=== PATIENT | female | born 1935 | race Caucasian/White ===

== ENCOUNTER 2016-03-13 09:37 | Emergency (ER) | payer MEDICARE, BC ==
[2016-03-13] MEDS ORDERED: SODIUM CHLORIDE 0.9% 500 ML IV STA (10:34)
[2016-03-13] MEDS ORDERED: DIAZEPAM 5 MG/ML 2 ML SYRINGE IVP STA (10:34)
--- NOTE | 2016-03-13 10:40 | ED ---
Back Pain HPI - General Chief Complaint: Back Pain/Injury Stated Complaint: Back Pain Time Seen by Provider: 03/13/16 09:40 Source: patient, EMS, RN notes reviewed Limitations: no limitations - History of Present Illness Initial Comments: 80-year-old female presents emergency Department chief complaint left low back pain. Patient states that she has chronic left low back pain but states that this much worse last few days. Patient denies any nausea vomiting diarrhea constipation. Patient denies any dysuria. 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 Patient states that she's had no fever or chills. Patient does have some left for quadrant abdominal pain. Patient denies any chest pain or shortness breath. Patient states that twisting bending makes the pain much worse. She states that she cannot take any pain medication as it makes her sick. She states she takes Tylenol 650 every morning. - Related Data Home Medications Medication Instructions Recorded Confirmed Levothyroxine Sodium [Synthroid] 50 mcg PO MOTUWETHFR 08/08/13 03/13/16 Niacin [Niacin ER] 500 mg PO DAILY 08/08/13 03/13/16 Calcium Carbonate/Vitamin D3 1 tab PO W/SUPPER 01/13/14 03/13/16 [Calcium 500-Vit D3 400 Tablet] Cranberry Conc/C/Bacill Coag 1 tab PO W/LUNCH 01/13/14 03/13/16 [Cranberry Tablet] Isosorbide Mononitrate [Imdur] 30 mg PO DAILY 01/13/14 03/13/16 Insulin Glargine,Hum.rec.anlog 12 units SQ PC-LUNCH 08/03/15 03/13/16 [Lantus Solostar] amLODIPine [Norvasc] 5 mg PO BID 08/03/15 03/13/16 Ergocalciferol [Vitamin D2] 50,000 unit PO ARDON 03/13/16 03/13/16 Ezetimibe [Zetia] 10 mg PO W/LUNCH 03/13/16 03/13/16 L.acidoph,Paracasei, B.lactis 1 cap PO DAILY 03/13/16 03/13/16 [Probiotic] Levothyroxine Sodium [Synthroid] 50 mcg PO SUSA 03/13/16 03/13/16 Multivit-Min/FA/Lycopene/Lut 1 tab PO W/LUNCH 03/13/16 03/13/16 [Centrum Silver Tablet] Pravastatin Sodium [Pravachol] 80 mg PO W/SUPPER 03/13/16 03/13/16 Previous Rx's Medication Instructions Recorded Lisinopril [Zestril] 10 mg PO BID #0 02/27/15 Allergies Allergy/AdvReac Type Severity Reaction Status Date / Time allantoin [From Orajel] Allergy Swelling Verified 03/13/16 09:52 benzalkonium chloride Allergy Swelling Verified 03/13/16 09:52 [From Orajel] benzocaine [From Orajel] Allergy Swelling Verified 03/13/16 09:52 carbamide peroxide Allergy Swelling Verified 03/13/16 09:52 [From Orajel] dipyridamole Allergy Unknown Verified 03/13/16 09:52 [From Persantine] enalapril maleate Allergy Swelling Verified 03/13/16 09:52 [From Vasotec] enalaprilat dihydrate Allergy Swelling Verified 03/13/16 09:52 [From Vasotec] methotrexate Allergy Swelling Verified 03/13/16 09:52 Sulfa (Sulfonamide Allergy Swelling Verified 03/13/16 09:52 Antibiotics) zinc chloride [From Orajel] Allergy Swelling Verified 03/13/16 09:52 acetaminophen [From Ultracet] AdvReac Nausea & Verified 03/13/16 09:52 Vomiting codeine AdvReac Nausea & Verified 03/13/16 09:52 Vomiting diazepam [From Valium] AdvReac Confusion Verified 03/13/16 11:12 pentazocine lactate AdvReac Hallucinati Verified 03/13/16 09:52 [From Talwin] ons propoxyphene HCl AdvReac Hallucinati Verified 03/13/16 09:52 [From Darvon] ons tramadol HCl [From Ultracet] AdvReac Nausea & Verified 03/13/16 09:52 Vomiting Review of Systems ROS Statement: Those systems with pertinent positive or pertinent negative responses have been documented in the HPI. ROS Other: All systems not noted in ROS Statement are negative. Past Medical History Past Medical History: CVA/TIA, Diabetes Mellitus, GI Bleed, Hyperlipidemia, Hypertension, Rheumatoid Arthritis (RA), Sleep Apnea/CPAP/BIPAP, Thyroid Disorder Additional Past Medical History / Comment(s): arthritis, murmur, cataracts, obstructive sleep apnea on CPAP. History of Any Multi-Drug Resistant Organisms: C-DIFF Date of last positivie culture/infection: 02/2016/C-Diff MDRO Source:: stool Past Surgical History: Appendectomy, Cholecystectomy, Hysterectomy, Joint Replacement Additional Past Surgical History / Comment(s): mouth tumor benign, rt arm bone tumor- benign, rt breast biopsy - benign, kidney biopsy for function- no problems, liver biopsy, right partial mastectomy, Rt hip replaced, ulcer caterization to address GI bleed. Past Anesthesia/Blood Transfusion Reactions: No Reported Reaction Past Psychological History: No Psychological Hx Reported Additional Psychological History / Comment(s): .Lives independently with the help of her multiple family members including her daughters. Transporter as needed. She is a lifelong nonsmoker with no marijuana, street drug use or alcohol abuse. Does not work outside of the home. No international travel. No experience. She does use a cane for ambulation and has a CPAP. No animal exposures. Smoking Status: Never smoker Past Alcohol Use History: None Reported Past Drug Use History: None Reported - Past Family History Brother(s) Family Medical History: CVA/TIA, Hypertension Additional Family Medical History / Comment(s): She has one brother with history of stroke and hypertension. Sister(s) Additional Family Medical History / Comment(s): She has 2 sisters and both have passed 1 from Alzheimer's dementia and one from brain aneurysm. Daughter(s) Additional Family Medical History / Comment(s): She has 6 children, 4 girls and 2 boys with strong history of hypertension. Mother Family Medical History: Congestive Heart Failure (CHF) Father Family Medical History: Liver Disease Additional Family Medical History / Comment(s): Father from alcoholic cirrhosis and had history of hypertension. General Exam Limitations: no limitations General appearance: alert, in no apparent distress Head exam: Present: atraumatic, normocephalic, normal inspection Respiratory exam: Present: normal lung sounds bilaterally. Absent: respiratory distress, wheezes, rales, rhonchi, stridor Cardiovascular Exam: Present: regular rate, normal rhythm, normal heart sounds. Absent: systolic murmur, diastolic murmur, rubs, gallop, clicks GI/Abdominal exam: Present: soft, tenderness (Mild diffuse), normal bowel sounds. Absent: distended, guarding, rebound, rigid Back exam: Present: full ROM, tenderness (Left low back moderate), paraspinal tenderness (Left lumbar). Absent: CVA tenderness (R), CVA tenderness (L), vertebral tenderness Neurological exam: Present: alert, oriented X3, CN II-XII intact Course Vital Signs 03/13/16 09:47 Temperature 97.1 F L Pulse Rate 85 Respiratory 20 Rate Blood Pressure 152/68 O2 Sat by Pulse 97 Oximetry Medical Decision Making - Medical Decision Making 80-year-old female presents emergency department for back pain. Patient has chronic back pain. Patient's x-ray does show severe degenerative changes most likely given her back pain. Patient has had a kidney stone in the left side. We discussed this appears to be within the kidney and she has no hematuria. Patient to follow up outpatient for her kidney stone. Patient agrees plan. Patient will increase Tylenol to 3 times a day she'll he states it twice. Return parameters were discussed. - Lab Data Result diagrams: 03/13/16 11:05 03/13/16 11:05 Lab Results 03/13/16 03/13/16 03/13/16 Range/Units 11:05 11:05 11:05 WBC 9.1 (3.8-10.6) k/uL RBC 4.15 (3.80-5.40) m/uL Hgb 13.2 (11.4-16.0) gm/dL Hct 38.4 (34.0-46.0) % MCV 92.5 (80.0-100.0) fL MCH 31.9 (25.0-35.0) pg MCHC 34.5 (31.0-37.0) g/dL RDW 12.4 (11.5-15.5) % Plt Count 208 (150-450) k/uL Neutrophils % 80 % Lymphocytes % 11 % Monocytes % 7 % Eosinophils % 1 % Basophils % 0 % Neutrophils # 7.3 (1.3-7.7) k/uL Lymphocytes # 1.0 (1.0-4.8) k/uL Monocytes # 0.6 (0-1.0) k/uL Eosinophils # 0.1 (0-0.7) k/uL Basophils # 0.0 (0-0.2) k/uL Sodium 145 (137-145) mmol/L Potassium 4.4 (3.5-5.1) mmol/L Chloride 106 (98-107) mmol/L Carbon Dioxide 22 (22-30) mmol/L Anion Gap 17 mmol/L BUN 25 H (7-17) mg/dL Creatinine 0.77 (0.52-1.04) mg/dL Est GFR (MDRD) Af Amer >60 (>60 ml/min/1.73 sqM) Est GFR (MDRD) Non-Af >60 (>60 ml/min/1.73 sqM) Glucose 172 H (74-99) mg/dL Calcium 10.3 H (8.4-10.2) mg/dL Total Bilirubin 1.0 (0.2-1.3) mg/dL AST 54 H (14-36) U/L ALT 70 H (9-52) U/L Alkaline Phosphatase 69 (38-126) U/L Total Protein 7.6 (6.3-8.2) g/dL Albumin 4.9 (3.5-5.0) g/dL Lipase 118 (23-300) U/L Urine Color Light Yellow Urine Appearance Clear (Clear) Urine pH 5.5 (5.0-8.0) Ur Specific [place] 1.008 (1.001-1.035) Urine Protein Negative (Negative) Urine Glucose (UA) Negative (Negative) Urine Ketones Negative (Negative) Urine Blood Negative (Negative) Urine Nitrate Negative (Negative) Urine Bilirubin Negative (Negative) Urine Urobilinogen <2.0 (<2.0) mg/dL Ur Leukocyte Esterase Small H (Negative) Urine RBC 1 (0-5) /hpf Urine WBC 11 H (0-5) /hpf Ur Squamous Epith Cells 1 (0-4) /hpf Urine Bacteria Rare H (None) /hpf Disposition Clinical Impression: Chronic back pain, Kidney stone Disposition: HOME SELF-CARE Condition: Stable Instructions: Chronic Back Pain (ED) Additional Instructions: Please return to the Emergency Department if symptoms worsen or any other concerns. Referrals: Art Washburn MD [Primary Care Provider] - 1-2 days Edson Jaime MD [STAFF PHYSICIAN] - 1-2 days Time of Disposition: 13:18
[2016-03-13 11:31] LABS: Appearance,Urine Clear (Clear); Bacteria,Urine Rare /hpf; Basophils % (A) 0 %; Bilirubin,Urine Negative (Negative); CH 32.6; CHCM 35.4; Eosinophils # (A) 0.1 k/uL (0-0.7); Eosinophils % (A) 1 %; Glucose,Urine (UA) Negative (Negative); HCT 38.4 % (34.0-46.0); HGB 13.2 gm/dL (11.4-16.0); Ketones,Urine Negative (Negative); Leukocyte Esterase,Urine Small (Negative); Luc # (Auto) 0.17; Luc % (Auto) 2; Lymphocytes % (A) 11 %; MCH 31.9 pg (25.0-35.0); MCHC 34.5 g/dL (31.0-37.0); MCV 92.5 fL (80.0-100.0); Mean Platelet Volume 7.1; Monocytes # (A) 0.6 k/uL (0-1.0); Monocytes % (A) 7 %; Neutrophils # (A) 7.3 k/uL (1.3-7.7); Neutrophils % (A) 80 %; Nitrite,Urine Negative (Negative); PH, Urine 5.5 (5.0-8.0); Particle Count 3116; Protein,Urine Negative (Negative); RBC 4.15 m/uL (3.80-5.40); RBC,Urine 1 /hpf (0-5); RDW 12.4 % (11.5-15.5); Specific Gravity,Urine 1.008 (1.001-1.035); Squamous Epithelial Cell,Urine 1 /hpf (0-4); UA Billing (MACRO vs. MICRO) MICRO; Urobilinogen,Urine <2.0 mg/dL (<2.0); WBC 9.1 k/uL (3.8-10.6); WBC,Urine 11 /hpf (0-5)
[2016-03-13 11:42] LABS: ALT 70 U/L (9-52); AST 54 U/L (14-36); Alkaline Phosphatase 69 U/L (38-126); Anion Gap 17 mmol/L; Blood Urea Nitrogen 25 mg/dL (7-17); Calcium 10.3 mg/dL (8.4-10.2); Carbon Dioxide 22 mmol/L (22-30); Chloride 106 mmol/L (98-107); Glucose 172 mg/dL (74-99); Non-African American GFR(MDRD) >60 (>60 ml/min/1.73 sqM); Potassium 4.4 mmol/L (3.5-5.1); Sodium 145 mmol/L (137-145); Total Protein 7.6 g/dL (6.3-8.2)
--- NOTE | 2016-03-13 12:50 | XR ---
EXAMINATION TYPE: XR KUB DATE OF EXAM: 03/13/2016 12:35 PM COMPARISON: 08/03/2015 HISTORY: 80-year-old female chronic back pain flared up and got worse. FINDINGS: Supine imaging limited for assessment of free air. Overall nonobstructive bowel gas pattern with scat tered mild stool. There is a 9 mm calcific density projecting at the left mid abdomen. There is a deg enerated extra convex scoliosis of the lumbar spine. Additional moderate degenerative change at the l eft hip with prior right hip replacement partially visualized. IMPRESSION: 1. Nonobstructive bowel gas pattern. 2. 9 mm calcification projecting in the left midabdomen suspected left renal calculus. 3. Degenerated dextroconvex scoliosis and moderate left hip osteoarthrosis.
--- NOTE | 2016-03-13 12:57 | XR ---
EXAMINATION TYPE: XR lumbar spine 2 or 3V DATE OF EXAM: 03/13/2016 12:35 PM COMPARISON: 05/17/2011 HISTORY: 80-year-old female with chronic back pain flareup recently TECHNIQUE: 3 views FINDINGS: There is a degenerated dextroconvex scoliosis of the lumbar spine with curvature increased from 2011. Marked hypertrophic facet arthropathy throughout. There is also degenerative thinning of the interspi nous ligaments with abutment of the spinous processes. The graft there are grade 1 retrolistheses at L1-L2, L2-L3, and L3-L4 with moderate multilevel disc/endplate degenerative change. There is superior endplate compression deformity with mild anterior wedging of T12 vertebral body which is age indeter minate but new from 2011. IMPRESSION: 1. Degenerated dextroconvex scoliosis has progressed from 2011. 2. Advanced hypertrophic facet arthropathy throughout with mild to moderate multilevel discogenic end plate degenerative change, and grade 1 retrolisthesis from L1 through L4 levels. 3. Mild anterior wedging of T12 suggests age indeterminate compression injury though new from 05/17/19 12. Correlate for any focal pain at this level.
[2016-03-13 13:28] VITALS: BP 166/78; PULSE 89; RESP 18; TEMP 97.9
== END 2016-03-13 13:32 | disposition home or self-care (01) ==
LOC: EC 09:37
DX: N20.0 Calculus of kidney (principal); M54.5 Low back pain; G89.29 Other chronic pain; M16.12 Unilateral primary osteoarthritis, left hip; M41.9 Scoliosis, unspecified; M51.36 Other intervertebral disc degeneration, lumbar region; E11.9 Type 2 diabetes mellitus without complications; I10 Essential (primary) hypertension; E07.9 Disorder of thyroid, unspecified; E78.5 Hyperlipidemia, unspecified; G47.33 Obstructive sleep apnea (adult) (pediatric); Z88.8 Allergy status to other drugs, medicaments and biological substances; Z88.2 Allergy status to sulfonamides; Z88.5 Allergy status to narcotic agent; Z79.899 Other long term (current) drug therapy; Z79.4 Long term (current) use of insulin; Z86.73 Personal history of transient ischemic attack (TIA), and cerebral infarction without residual deficits
CPT/HCPCS: 36415; 72100; 74000; 80053; 81001; 83690; 85025; 99284

== ENCOUNTER → 2016-05-19 | Outpatient (CLI) | payer MEDICARE, BC ==
[2016-05-19 10:42] LABS: Basophils % (A) 0 %; CH 32.2; Eosinophils # (A) 0.2 k/uL (0-0.7); Eosinophils % (A) 2 %; HCT 38.1 % (34.0-46.0); HDW 2.69; HGB 12.6 gm/dL (11.4-16.0); Luc # (Auto) 0.19; Luc % (Auto) 3; Lymphocytes # (A) 1.1 k/uL (1.0-4.8); Lymphocytes % (A) 14 %; MCH 31.6 pg (25.0-35.0); MCHC 33.2 g/dL (31.0-37.0); MCV 95.1 fL (80.0-100.0); Mean Platelet Volume 7.3; Monocytes # (A) 0.6 k/uL (0-1.0); Monocytes % (A) 7 %; Neutrophils # (A) 5.8 k/uL (1.3-7.7); Neutrophils % (A) 74 %; RDW 12.3 % (11.5-15.5); WBC 7.9 k/uL (3.8-10.6)
[2016-05-19 10:46] LABS: Partial Thromboplastin Time 22.9 sec (22.0-30.0); Prothrombin Time 10.5 sec (9.0-12.0)
[2016-05-19 10:58] LABS: Anion Gap 12 mmol/L; Blood Urea Nitrogen 26 mg/dL (7-17); Carbon Dioxide 25 mmol/L (22-30); Chloride 108 mmol/L (98-107); Non-African American GFR(MDRD) >60 (>60 ml/min/1.73 sqM); Potassium 4.4 mmol/L (3.5-5.1); Sodium 145 mmol/L (137-145)
[2016-05-19 11:03] LABS: Appearance,Urine Clear (Clear); Bacteria,Urine Moderate /hpf; Bilirubin,Urine Negative (Negative); Glucose,Urine (UA) Negative (Negative); Ketones,Urine Negative (Negative); Leukocyte Esterase,Urine Large (Negative); Mucus,Urine Rare /hpf; Nitrite,Urine Negative (Negative); PH, Urine 5.5 (5.0-8.0); Particle Count 4481; Protein,Urine Trace (Negative); RBC,Urine 2 /hpf (0-5); Specific Gravity,Urine 1.009 (1.001-1.035); UA Billing (MACRO vs. MICRO) MICRO; Urobilinogen,Urine <2.0 mg/dL (<2.0); WBC,Urine 104 /hpf (0-5)
== END | disposition home or self-care (01) ==
LOC: LABWHC1 09:45
PROVIDERS: ATTEND Urology
DX: N20.1 Calculus of ureter (principal); I10 Essential (primary) hypertension; I25.2 Old myocardial infarction; I48.91 Unspecified atrial fibrillation
CPT/HCPCS: 36415; 80051; 81001; 82565; 84520; 85025; 85610; 85730

== ENCOUNTER 2016-05-26 06:32 | Day surgery (SDC) | payer MEDICARE, BC ==
[2016-05-21 16:53] VITALS: BMI 22.3
[~2016-05-26 06:32] MED LIST: LACTATED RINGERS 1,000 ML IV SCH; ONDANSETRON 4 MG/2 ML VIAL IVP ONE; Pre Op ABX Message 1 EACH MISC MISCELLANE ONE; fentaNYL (PF) 50 MCG/ML 2 ML AMP IV PRN
[2016-05-26] MEDS ORDERED: LIDOCAINE 1% 20 ML VIAL (10MG/ML) FOR IV START INTRADERMA ONE (07:01)
[2016-05-26 07:14] LABS: Glucose,Whole Blood 197 mg/dL (75-99)
[2016-05-26 07:19] VITALS: RESP 16; TEMP 98.2
[2016-05-26] MEDS ORDERED: PROPOFOL 10 MG/ML 20 ML VIAL IV ONE (07:25)
[2016-05-26] MEDS ORDERED: MIDAZOLAM 2 MG/2 ML VIAL ONE (07:25)
[2016-05-26] MEDS ORDERED: fentaNYL (PF) 50 MCG/ML 2 ML AMP ONE (07:25)
[2016-05-26] MEDS ORDERED: LIDOCAINE 1% INJ 10MG/ML (20 ML MDV) ONE (07:25)
--- NOTE | 2016-05-26 08:03 | P.OP ---
Date of Procedure: 05/26/16 Preoperative Diagnosis: Left renal calculus Postoperative Diagnosis: Same Anesthesia: YIFAN VALDEZ Surgeon: Aaron Kinsey Pathology: none sent Condition: stable Disposition: PACU Indications for Procedure: The patient is an 80-year-old female with a 9 mm left renal pelvic stone who comes for shockwave lithotripsy Description of Procedure: Patient is brought to the lithotripsy suite and placed on the lithotripsy table in the supine position. The stone was seen in 2 views of fluoroscopy. 2500 shocks to the stone fragment energy level IV administered. The stone fractures nicely. Then of the procedure the patient's awake and returned recovery room good condition. She'll be followed in the office later this week with a KUB.
[2016-05-26 08:44] VITALS: PULSE 82
[2016-05-26 09:30] VITALS: BP 132/61
== END 2016-05-26 09:51 | disposition home or self-care (01) ==
LOC: ORWHC2ENDO 06:32
PROVIDERS: ATTEND Urology
DX: N20.0 Calculus of kidney (principal); I10 Essential (primary) hypertension; I25.10 Atherosclerotic heart disease of native coronary artery without angina pectoris; E11.9 Type 2 diabetes mellitus without complications; Z79.4 Long term (current) use of insulin; I25.2 Old myocardial infarction; E78.5 Hyperlipidemia, unspecified; E03.9 Hypothyroidism, unspecified; R01.1 Cardiac murmur, unspecified; G47.33 Obstructive sleep apnea (adult) (pediatric); Z99.89 Dependence on other enabling machines and devices; M35.00 Sjogren syndrome, unspecified; Z86.718 Personal history of other venous thrombosis and embolism; Z79.899 Other long term (current) drug therapy; Z88.1 Allergy status to other antibiotic agents; Z88.5 Allergy status to narcotic agent; Z88.0 Allergy status to penicillin; Z88.2 Allergy status to sulfonamides; Z91.09 Other allergy status, other than to drugs and biological substances
CPT/HCPCS: 50590; J2250; J2405; J2001; J3010; J2704

== ENCOUNTER → 2016-05-30 | Outpatient (CLI) | payer MEDICARE, BC ==
--- NOTE | 2016-05-30 10:55 | XR ---
EXAMINATION TYPE: XR KUB DATE OF EXAM: 05/30/2016 10:36 AM CLINICAL HISTORY: Follow-up for lithotripsy May 26, 2016. TECHNIQUE: Single supine KUB image of the abdomen is obtained. COMPARISON: Abdominal x-ray March 13, 2016.. FINDINGS: There are now multiple small punctate calculi lower pole level likely within calyx in the l eft kidney. Previously visualized 9 mm round calculus is not seen. No new renal calculi clearly ident ified. There is overall nonobstructive bowel gas pattern. There is multilevel spurring in the spine most pro minent L1-L2 level. There is moderate to advanced joint space loss and mild to moderate spurring in t he left hip redemonstrated. Metallic hardware from right hip arthroplasty is stable. IMPRESSION: Successful lithotripsy or fragmentation of dominant left renal calculus with incomplete clearance or some residual punctate calculi filling lower pole calyx.
== END | disposition home or self-care (01) ==
LOC: RADXRMAIN 10:23
PROVIDERS: ATTEND Urology
DX: N20.0 Calculus of kidney (principal)
CPT/HCPCS: 74000

== ENCOUNTER → 2016-06-30 | Outpatient (CLI) | payer MEDICARE, BC ==
--- NOTE | 2016-06-30 13:26 | XR ---
EXAMINATION TYPE: XR KUB DATE OF EXAM: 06/30/2016 12:16 PM CLINICAL DATA: 80-year-old female left-sided kidney stones, [facility] COMPARISON: 05/30/2016 FINDINGS: Supine imaging limited for assessment of free intraperitoneal air. Her nonobstructive bowel gas patte rn. Cluster of calculi projecting at the lower pole left kidney with aggregate dimension of 1.8 x 0.6 cm. Additional 5 mm calcification projecting at the left midpole. Either vascular calcifications or timi tional vague urinary tract calculus projecting at the tip of the left L3 transverse process. Degenerated dextroconvex scoliosis. IMPRESSION: 1. Left-sided nephrolithiasis with an aggregate calculus measuring up to 1.8 x 0.6 cm. 2. Either subtle urinary tract calculus or vascular calcifications projecting at the tip of the left L3 transverse process. Correlate with patient's symptoms.
== END | disposition home or self-care (01) ==
LOC: RADXRMAIN 11:53
PROVIDERS: ATTEND Urology
DX: N20.0 Calculus of kidney (principal)
CPT/HCPCS: 74000

== ENCOUNTER 2018-05-28 10:09 | Emergency (ER) | payer MEDICARE, BC ==
[2018-05-28 10:22] VITALS: BP 159/73; PULSE 93; RESP 18; TEMP 96.7
[2018-05-28] MEDS ORDERED: SODIUM CHLORIDE 0.9% 500 ML 500 ML IV STA (10:55)
--- NOTE | 2018-05-28 11:09 | ED ---
General Adult HPI - General Chief complaint: Abdominal Pain Stated complaint: Weakness Time Seen by Provider: 05/28/18 10:53 Source: patient, EMS Mode of arrival: EMS Limitations: physical limitation - History of Present Illness Initial comments: Dictation was produced using [employer] dictation software. please excuse any grammatical, word or spelling errors. Chief Complaint: 82-year-old female past history of CVA, diabetes, GI bleed, hypertension presents with persistent diarrhea or 7 days. History of Present Illness: A 82-year-old female she is brought in today for persistent diarrhea. Patient has history of CVA and ambulates with a cane. Patient states that 7 days ago she's been having significant constant episodes of diarrhea for approximate 7 days. Patient states that today she began feeling significantly weak and not as active as usual. Patient denies any nausea or vomiting. She states she has diffuse abdominal tenderness. Denies any recent hospitalization or recent antibiotics. She has started omeprazole and Zantac recently. The ROS documented in this emergency department record has been reviewed and confirmed by me. Those systems with pertinent positive or negative responses have been documented in the HPI. All other systems are other negative and/or noncontributory. PHYSICAL EXAM: General Impression: Alert and oriented x3, not in acute distress HEENT: Normocephalic atraumatic, extra-ocular movements intact, pupils equal and reactive to light bilaterally, dry mucous membranes Cardiovascular: Heart regular rate and rhythm, S1&S2 audible, no murmurs, rubs or gallops Chest: Lungs clear to auscultation bilaterally, no rhonchi, no wheeze, no rales Abdomen: Bowel sounds present, abdomen soft, diffuse abdominal tenderness to palpation, non-distended, no organomegaly Musculoskeletal: Pulses present and equal in all extremities, no peripheral edema Motor: no focal deficits noted Neurological: CN II-XII grossly intact, no focal motor or sensory deficits noted Skin: Intact with no visualized rashes Psych: Normal affect and mood ED course: 82-year-old female presents chief complaint diarrhea. Vital signs upon arrival are within acceptable limits. Patient is well-appearing at this time. Physical examination is positive for dehydration and diffuse abdominal tenderness. No concerns for Clostridium difficile infection. Laboratory evaluation obtained. CBC unremarkable. Metabolic panel shows no Acidosis. Glucose 203. Mild transaminitis. Lipase 423. Patient does have an elevated BUN to creatinine ratio indicating slight dehydration. Patient denies any urinary symptoms however urinalysis shows positive nitrites. No WBCs. Patient has known history of chronic urinary tract infections. This time we will withhold antibiotics until urine culture results are done. Patient did not have any episodes of diarrhea upon arrival. Repeat physical examination shows well-appearing female. Abdominal x-ray shows thickened gastric wall. Patient has been given intravenous fluids. Patient does have mild weak rectal tone likely secondary to weak and pelvic muscles. No concern for cauda equina or conus medullaris at this time given that patient not complaining of any back pain symptoms have been ongoing for 1 week. Patient to be discharge with prescription for antidiarrheal medications. Patient counseled on appropriate administration of these medications. She is given GI referral for incidental upper GI findings. EKG interpretation: Ventricular rate 86, sinus rhythm with first-degree AV block,. Interval to 22, care is 124, QTC 471. No ND prolongation, no QTC prolongation, no ST or T-wave changes noted. EKG compared to 02/20/19 showing no changes. Overall, this EKG is unremarkable - Related Data Home Medications Medication Instructions Recorded Confirmed Niacin [Niacin ER] 500 mg PO W/SUPPER 08/08/13 05/28/18 Calcium Carbonate/Vitamin D3 1 tab PO W/SUPPER 01/13/14 05/28/18 [Calcium 500-Vit D3 400 Tablet] Cranberry Conc/C/Bacill Coag 1 tab PO W/LUNCH 01/13/14 05/28/18 [Cranberry Tablet] Isosorbide Mononitrate [Imdur] 30 mg PO DAILY 01/13/14 05/28/18 Insulin Glargine,Hum.rec.anlog 16 units SQ PC-LUNCH 08/03/15 05/28/18 [Lantus Solostar] amLODIPine [Norvasc] 5 mg PO BID 08/03/15 05/28/18 Ezetimibe [Zetia] 10 mg PO W/LUNCH 03/13/16 05/28/18 L.acidoph,Paracasei, B.lactis 1 cap PO DAILY 03/13/16 05/28/18 [Probiotic] Levothyroxine Sodium [Synthroid] 75 mcg PO DAILY 03/13/16 05/28/18 Multivit-Min/FA/Lycopen/Lutein 1 tab PO W/LUNCH 03/13/16 05/28/18 [Centrum Silver Tablet] Pravastatin Sodium [Pravachol] 80 mg PO W/SUPPER 03/13/16 05/28/18 Acetaminophen [Tylenol Arthritis] 650 mg PO DIRECTED PRN 05/21/16 05/28/18 Omeprazole 20 mg PO DAILY 05/28/18 05/28/18 Ranitidine HCl 150 mg PO HS 05/28/18 05/28/18 Previous Rx's Medication Instructions Recorded Lisinopril [Zestril] 10 mg PO BID #0 02/27/15 HYDROcodone/APAP 5-325MG [[place] 1 tab PO Q4HR PRN #20 tab 05/26/16 5-325] Loperamide [Imodium] 2 mg PO QID PRN #12 capsule 05/28/18 Allergies Allergy/AdvReac Type Severity Reaction Status Date / Time allantoin [From Orajel] Allergy Swelling Verified 05/28/18 11:16 benzalkonium chloride Allergy Swelling Verified 05/28/18 11:16 [From Orajel] benzocaine [From Orajel] Allergy Swelling Verified 05/28/18 11:16 carbamide peroxide Allergy Swelling Verified 05/28/18 11:16 [From Orajel] codeine Allergy Nausea & Verified 05/28/18 11:16 Vomiting dipyridamole Allergy Unknown Verified 05/28/18 11:16 [From Persantine] enalapril maleate Allergy Swelling Verified 05/28/18 11:16 [From Vasotec] enalaprilat dihydrate Allergy Swelling Verified 05/28/18 11:16 [From Vasotec] furosemide [From Lasix] Allergy Unknown Verified 05/28/18 11:16 glimepiride [From Amaryl] Allergy Unknown Verified 05/28/18 11:16 hydralazine Allergy Unknown Verified 05/28/18 11:16 methotrexate Allergy Swelling Verified 05/28/18 11:16 naproxen [From Naprosyn] Allergy Unknown Verified 05/28/18 11:16 Penicillins Allergy Unknown Verified 05/28/18 11:16 Sulfa (Sulfonamide Allergy Swelling Verified 05/28/18 11:16 Antibiotics) zinc chloride [From Orajel] Allergy Swelling Verified 05/28/18 11:16 acetaminophen [From Ultracet] AdvReac Nausea & Verified 05/28/18 11:16 Vomiting diazepam [From Valium] AdvReac Confusion Verified 05/28/18 11:16 pentazocine lactate AdvReac Hallucinati Verified 05/28/18 11:16 [From Talwin] ons propoxyphene HCl AdvReac Hallucinati Verified 05/28/18 11:16 [From Darvon] ons tramadol HCl [From Ultracet] AdvReac Nausea & Verified 05/28/18 11:16 Vomiting CIPROCINONIDE Allergy Unknown Uncoded 05/26/16 06:55 Review of Systems ROS Statement: Those systems with pertinent positive or pertinent negative responses have been documented in the HPI. ROS Other: All systems not noted in ROS Statement are negative. Past Medical History Past Medical History: CVA/TIA, Diabetes Mellitus, GI Bleed, Hyperlipidemia, Hypertension, Rheumatoid Arthritis (RA), Sleep Apnea/CPAP/BIPAP, Thyroid Disorder Additional Past Medical History / Comment(s): arthritis, murmur, cataracts, obstructive sleep apnea on CPAP. History of Any Multi-Drug Resistant Organisms: None Reported Date of last positivie culture/infection: 02/2016/C-Diff MDRO Source:: stool Past Surgical History: Appendectomy, Cholecystectomy, Hysterectomy, Joint Replacement Additional Past Surgical History / Comment(s): mouth tumor benign, rt arm bone tumor- benign, rt breast biopsy - benign, kidney biopsy for function- no problems, liver biopsy, right partial mastectomy, Rt hip replaced, ulcer caterization to address GI bleed. Past Anesthesia/Blood Transfusion Reactions: No Reported Reaction Past Psychological History: No Psychological Hx Reported Smoking Status: Never smoker Past Alcohol Use History: None Reported Past Drug Use History: None Reported - Past Family History Brother(s) Family Medical History: CVA/TIA, Hypertension Additional Family Medical History / Comment(s): She has one brother with history of stroke and hypertension. Sister(s) Additional Family Medical History / Comment(s): She has 2 sisters and both have passed 1 from Alzheimer's dementia and one from brain aneurysm. Daughter(s) Additional Family Medical History / Comment(s): She has 6 children, 4 girls and 2 boys with strong history of hypertension. Mother Family Medical History: Congestive Heart Failure (CHF) Father Family Medical History: Deep Vein Thrombosis (DVT), Liver Disease Additional Family Medical History / Comment(s): Father from alcoholic cirrhosis and had history of hypertension. General Exam Limitations: physical limitation Course Vital Signs 05/28/18 10:20 Temperature 96.7 F L Pulse Rate 93 Respiratory 18 Rate Blood Pressure 159/73 O2 Sat by Pulse 97 Oximetry Medical Decision Making - Lab Data Result diagrams: 05/28/18 11:16 05/28/18 11:16 Lab Results 05/28/18 05/28/18 05/28/18 Range/Units 11:16 11:16 12:25 WBC 10.0 (3.8-10.6) k/uL RBC 4.08 (3.80-5.40) m/uL Hgb 12.4 (11.4-16.0) gm/dL Hct 38.0 (34.0-46.0) % MCV 93.1 (80.0-100.0) fL MCH 30.4 (25.0-35.0) pg MCHC 32.7 (31.0-37.0) g/dL RDW 12.6 (11.5-15.5) % Plt Count 169 (150-450) k/uL Neutrophils % 81 % Lymphocytes % 9 % Monocytes % 7 % Eosinophils % 2 % Basophils % 0 % Neutrophils # 8.1 H (1.3-7.7) k/uL Lymphocytes # 0.9 L (1.0-4.8) k/uL Monocytes # 0.7 (0-1.0) k/uL Eosinophils # 0.2 (0-0.7) k/uL Basophils # 0.0 (0-0.2) k/uL Sodium 141 (137-145) mmol/L Potassium 3.9 (3.5-5.1) mmol/L Chloride 110 H (98-107) mmol/L Carbon Dioxide 22 (22-30) mmol/L Anion Gap 9 mmol/L BUN 29 H (7-17) mg/dL Creatinine 0.82 (0.52-1.04) mg/dL Est GFR (CKD-EPI)AfAm 77 (>60 ml/min/1.73 sqM) Est GFR (CKD-EPI)NonAf 66 (>60 ml/min/1.73 sqM) Glucose 203 H (74-99) mg/dL Calcium 9.6 (8.4-10.2) mg/dL Total Bilirubin 1.1 (0.2-1.3) mg/dL AST 58 H (14-36) U/L ALT 69 H (9-52) U/L Alkaline Phosphatase 66 (38-126) U/L Total Protein 6.8 (6.3-8.2) g/dL Albumin 4.3 (3.5-5.0) g/dL Lipase 423 H (23-300) U/L Urine Color Light Yellow Urine Appearance Clear (Clear) Urine pH 5.5 (5.0-8.0) Ur Specific [place] 1.008 (1.001-1.035) Urine Protein Trace H (Negative) Urine Glucose (UA) Negative (Negative) Urine Ketones Negative (Negative) Urine Blood Negative (Negative) Urine Nitrite Positive H (Negative) Urine Bilirubin Negative (Negative) Urine Urobilinogen <2.0 (<2.0) mg/dL Ur Leukocyte Esterase Moderate H (Negative) Urine RBC 15 H (0-5) /hpf Ur Squamous Epith Cells <1 (0-4) /hpf Urine Bacteria Occasional H (None) /hpf Urine Mucus Rare H (None) /hpf Disposition Clinical Impression: Diarrhea Disposition: HOME SELF-CARE Condition: Good Instructions (If sedation given, give patient instructions): Acute Diarrhea (ED) Prescriptions: Loperamide [Imodium] 2 mg PO QID PRN #12 capsule PRN Reason: Diarrhea Is patient prescribed a controlled substance at d/c from ED?: No Referrals: Harshal Calderón MD [Primary Care Provider] - 1-2 days Ela Richardson MD [STAFF PHYSICIAN] - 1-2 days Time of Disposition: 12:52
[2018-05-28 11:45] LABS: Basophils % (A) 0 %; Eosinophils # (A) 0.2 k/uL (0-0.7); Eosinophils % (A) 2 %; HGB 12.4 gm/dL (11.4-16.0); Lymphocytes # (A) 0.9 k/uL (1.0-4.8); Lymphocytes % (A) 9 %; MCH 30.4 pg (25.0-35.0); MCHC 32.7 g/dL (31.0-37.0); MCV 93.1 fL (80.0-100.0); Mean Platelet Volume 8.4; Monocytes # (A) 0.7 k/uL (0-1.0); Monocytes % (A) 7 %; Neutrophils # (A) 8.1 k/uL (1.3-7.7); Neutrophils % (A) 81 %; Platelet Count 169 k/uL (150-450); RBC 4.08 m/uL (3.80-5.40); RDW 12.6 % (11.5-15.5)
[2018-05-28 11:56] LABS: Albumin 4.3 g/dL (3.5-5.0); Calcium 9.6 mg/dL (8.4-10.2); Potassium 3.9 mmol/L (3.5-5.1); Total Bilirubin 1.1 mg/dL (0.2-1.3); Total Protein 6.8 g/dL (6.3-8.2)
--- NOTE | 2018-05-28 12:25 | XR ---
EXAMINATION TYPE: XR abdomen acute w cxr DATE OF EXAM: 05/28/2018 CLINICAL HISTORY: History of CVA/TIA and hypertension presents with chest and abdominal pain, weaknes s and shortness of breath with diarrhea. TECHNIQUE: Single frontal view of chest is obtained. Supine and upright views of the abdomen are acq uired. COMPARISON: Abdominal x-ray June 30, 2016. Chest x-ray February 22, 2015. FINDINGS: There is chronic parenchymal change without suspicious focal airspace opacity, pleural effu rupa, or pneumothorax. Cardiac silhouette size appears upper limits of normal with atherosclerotic a sunita. Osseous structures are somewhat demineralized. Old fracture deformity right proximal humerus i s present. Gas is seen in nondistended stomach with suggestion of superiorly thickened gastric wall. Gas is note d in nondistended small bowel loops. Gas and fecal material is seen in nondistended colon. Metallic hardware right hip arthroplasty is redemonstrated. Left-sided renal calculi again seen, I see roughly 5 calculi measuring up to 4 mm in size. Underlying S-shaped scoliosis with multilevel spurring in th e spine is redemonstrated most prominent right L1-L2 level. No pneumoperitoneum is seen. Impression: 1. Chronic parenchymal changes without acute pulmonary process. 2. Overall nonspecific but likely nonobstructive bowel gas pattern. Suspect severe diffuse gastric wa ll thickening, differential includes gastritis and/or gastric carcinoma/linitis plastica. Consider en doscopic evaluation based on clinical correlation.
[2018-05-28 12:38] LABS: Appearance,Urine Clear (Clear); Bacteria,Urine Occasional /hpf; Bilirubin,Urine Negative (Negative); Blood,Urine Negative (Negative); Color,Urine Light Yellow; Glucose,Urine (UA) Negative (Negative); Ketones,Urine Negative (Negative); Leukocyte Esterase,Urine Moderate (Negative); Mucus,Urine Rare /hpf; Nitrite,Urine Positive (Negative); PH, Urine 5.5 (5.0-8.0); Protein,Urine Trace (Negative); RBC,Urine 15 /hpf (0-5); Specific Gravity,Urine 1.008 (1.001-1.035); Squamous Epithelial Cell,Urine <1 /hpf (0-4); Urobilinogen,Urine <2.0 mg/dL (<2.0)
== END 2018-05-28 13:03 | disposition home or self-care (01) ==
LOC: EC 10:09
DX: R19.7 Diarrhea, unspecified (principal); E86.0 Dehydration; I44.0 Atrioventricular block, first degree; R74.0 Nonspecific elevation of levels of transaminase and lactic acid dehydrogenase [LDH]; R82.998 Other abnormal findings in urine; K62.89 Other specified diseases of anus and rectum; R53.1 Weakness; R10.817 Generalized abdominal tenderness; E11.9 Type 2 diabetes mellitus without complications; E78.5 Hyperlipidemia, unspecified; I10 Essential (primary) hypertension; E07.9 Disorder of thyroid, unspecified; G47.33 Obstructive sleep apnea (adult) (pediatric); M19.90 Unspecified osteoarthritis, unspecified site; Z88.0 Allergy status to penicillin; Z88.2 Allergy status to sulfonamides; Z88.5 Allergy status to narcotic agent; Z88.6 Allergy status to analgesic agent; Z88.8 Allergy status to other drugs, medicaments and biological substances; Z79.4 Long term (current) use of insulin; Z79.890 Hormone replacement therapy; Z79.899 Other long term (current) drug therapy; Z87.19 Personal history of other diseases of the digestive system; Z90.49 Acquired absence of other specified parts of digestive tract; Z96.641 Presence of right artificial hip joint; Z86.73 Personal history of transient ischemic attack (TIA), and cerebral infarction without residual deficits; Z87.440 Personal history of urinary (tract) infections; Z99.89 Dependence on other enabling machines and devices; Z83.79 Family history of other diseases of the digestive system
CPT/HCPCS: 36415; 74022; 80053; 81001; 83690; 85025; 87077; 87086; 87186; 93005; 99285

== ENCOUNTER → 2018-11-09 | Outpatient (CLI) | payer MEDICARE, BC ==
[2018-11-09 16:35] LABS: Albumin 4.9 g/dL (3.80-4.90); Albumin/Globulin Ratio 2.72 (1.60-3.17); Anion Gap 12.3 mmol/L (4.00-12.00); BUN/Creat Ratio 32.5 Ratio (12.00-20.00); Calcium 10.6 mg/dL (8.7-10.3); Carbon Dioxide 23.7 mmol/L (21.6-31.8); Chol/HDL Ratio 3.33; Globulin 1.8 g/dL (1.6-3.3); Potassium 4.2 mmol/L (3.5-5.5); Total Protein 6.7 g/dL (6.2-8.2)
[2018-11-09 17:39] LABS: Hemoglobin A1C 7.3 % (4.0-6.0)
== END | disposition home or self-care (01) ==
LOC: LABWHC1 10:08
PROVIDERS: ATTEND Internal Medicine Endocrinology, Diabetes & Metabolism
DX: E11.65 Type 2 diabetes mellitus with hyperglycemia (principal)
CPT/HCPCS: 36415; 80053; 80061; 82043; 82570; 83036; 84443

== ENCOUNTER 2020-04-19 10:30 | Inpatient (IN) | payer MEDICARE, BC ==
[2020-04-19] MEDS ORDERED: ONDANSETRON 4 MG/2 ML VIAL IVP STA (11:22)
[2020-04-19] MEDS ORDERED: SODIUM CHLORIDE 0.9% 500 ML 500 ML IV STA (11:22)
[2020-04-19 11:41] LABS: Basophils % (A) 0 %; Eosinophils # (A) 0.1 k/uL (0-0.7); Eosinophils % (A) 2 %; HCT 36.1 % (34.0-46.0); HGB 12.1 gm/dL (11.4-16.0); Lymphocytes # (A) 0.9 k/uL (1.0-4.8); Lymphocytes % (A) 14 %; MCH 30.8 pg (25.0-35.0); MCHC 33.5 g/dL (31.0-37.0); MCV 91.9 fL (80.0-100.0); Monocytes # (A) 0.4 k/uL (0-1.0); Monocytes % (A) 6 %; Neutrophils # (A) 4.7 k/uL (1.3-7.7); Neutrophils % (A) 77 %; Platelet Count 161 k/uL (150-450); RBC 3.93 m/uL (3.80-5.40); RDW 12.4 % (11.5-15.5); WBC 6.2 k/uL (3.8-10.6)
[2020-04-19 11:53] LABS: Albumin 3.8 g/dL (3.5-5.0); Calcium 9.7 mg/dL (8.4-10.2); Magnesium 1.6 mg/dL (1.6-2.3); Potassium 4.2 mmol/L (3.5-5.1); Total Bilirubin 0.8 mg/dL (0.2-1.3); Total Protein 6.5 g/dL (6.3-8.2)
[2020-04-19 11:57] LABS: INR 0.9 (<1.2)
[2020-04-19 11:59] LABS: Partial Thromboplastin Time 20.4 sec (22.0-30.0)
--- NOTE | 2020-04-19 12:03 | XR ---
EXAMINATION TYPE: XR chest 2V DATE OF EXAM: 04/19/2020 COMPARISON: 02/22/15 HISTORY: Shortness of breath TECHNIQUE: Frontal and lateral views of the chest are obtained. FINDINGS: Scattered senescent parenchymal changes noted. Hyperinflation compatible with COPD. No evidence for infiltrate. No evidence for atelectasis. Heart size is stable. Mediastinal structures are stable and grossly unremarkable. No evidence for hilar prominence. Degenerative changes dorsal spine. IMPRESSION: 1. No evidence for acute pulmonary disease.
[2020-04-19 12:16] LABS: Appearance,Urine Clear (Clear); Bilirubin,Urine Negative (Negative); Blood,Urine Negative (Negative); Color,Urine Yellow; Glucose,Urine (UA) Negative (Negative); Ketones,Urine Negative (Negative); Leukocyte Esterase,Urine Moderate (Negative); Nitrite,Urine Negative (Negative); Protein,Urine 1+ (Negative); RBC,Urine <1 /hpf (0-5); Specific Gravity,Urine 1.009 (1.001-1.035); Squamous Epithelial Cell,Urine 1 /hpf (0-4); Urobilinogen,Urine <2.0 mg/dL (<2.0); WBC,Urine 4 /hpf (0-5)
--- NOTE | 2020-04-19 12:36 | ED ---
Weakness HPI - General Chief complaint: Weakness Stated complaint: Weakness Time Seen by Provider: 04/19/20 10:30 Source: patient, EMS Mode of arrival: EMS Limitations: no limitations - History of Present Illness Initial comments: The patient is an 84-year-old female past medical history of CVA, diabetes, rheumatoid arthritis who presents to the emergency department with reported weakness. Patient states that she began having symptoms and was taken into the emergency department at [facility] on Thursday. She is evaluated in the ER. Found that she had a urinary tract infection. They gave the patient anabiotic since she was discharged home. Patient reports that she originally felt better however over the past day she has progressive it got worse. She does have chronic right-sided weakness but is able to care for herself. Lives alone and is normally able to ambulate to the bathroom. States that this morning she was unable to get up and ambulate therefore she called EMS. She admits to nausea with dry heaving. Decreased appetite. No abdominal pain. Denies worsening unilateral weakness but admits to rise weakness. No fevers or chills. Does report that she had a contact was positive for covid one week ago. No other alleviating, precipitating factors - Related Data Home Medications Medication Instructions Recorded Confirmed Niacin [Niacin ER] 500 mg PO W/SUPPER 08/08/13 04/19/20 Calcium Carbonate/Vitamin D3 1 tab PO W/SUPPER 01/13/14 04/19/20 [Calcium 500-Vit D3 400 Tablet] Cranberry Conc/C/Bacill Coag 1 tab PO W/LUNCH 01/13/14 04/19/20 [Cranberry Tablet] Insulin Glargine,Hum.rec.anlog 24 units SQ DAILY@1300 08/03/15 04/19/20 [Lantus Solostar] amLODIPine [Norvasc] 5 mg PO DAILY 08/03/15 04/19/20 Ezetimibe [Zetia] 10 mg PO W/LUNCH 03/13/16 04/19/20 L.acidoph,Paracasei, B.lactis 1 cap PO DAILY 03/13/16 04/19/20 [Probiotic] Multivit-Min/FA/Lycopen/Lutein 1 tab PO W/LUNCH 03/13/16 04/19/20 [Centrum Silver Tablet] Pravastatin Sodium [Pravachol] 80 mg PO W/SUPPER 03/13/16 04/19/20 Cholecalciferol [Vitamin D3 (25 50 mcg PO HS 04/19/20 04/19/20 Mcg = 1000 Iu)] Isosorbide Mononitrate ER [Imdur] 60 mg PO DAILY 04/19/20 04/19/20 Levothyroxine Sodium [Synthroid] 75 mcg PO DAILY 04/19/20 04/19/20 Previous Rx's Medication Instructions Recorded lisinopriL [Zestril] 10 mg PO BID #0 02/27/15 Allergies Allergy/AdvReac Type Severity Reaction Status Date / Time allantoin [From Orajel] Allergy Swelling Verified 04/19/20 11:43 benzalkonium chloride Allergy Swelling Verified 04/19/20 11:43 [From Orajel] benzocaine [From Orajel] Allergy Swelling Verified 04/19/20 11:43 carbamide peroxide Allergy Swelling Verified 04/19/20 11:43 [From Orajel] codeine Allergy Nausea & Verified 04/19/20 11:43 Vomiting dipyridamole Allergy Unknown Verified 04/19/20 11:43 [From Persantine] enalapril maleate Allergy Swelling Verified 04/19/20 11:43 [From Vasotec] enalaprilat dihydrate Allergy Swelling Verified 04/19/20 11:43 [From Vasotec] furosemide [From Lasix] Allergy Unknown Verified 04/19/20 11:43 glimepiride [From Amaryl] Allergy Unknown Verified 04/19/20 11:43 hydralazine Allergy Unknown Verified 04/19/20 11:43 methotrexate Allergy Swelling Verified 04/19/20 11:43 naproxen [From Naprosyn] Allergy Unknown Verified 04/19/20 11:43 Penicillins Allergy Unknown Verified 04/19/20 11:43 Sulfa (Sulfonamide Allergy Swelling Verified 04/19/20 11:43 Antibiotics) zinc chloride [From Orajel] Allergy Swelling Verified 04/19/20 11:43 acetaminophen [From Ultracet] AdvReac Nausea & Verified 04/19/20 11:43 Vomiting diazepam [From Valium] AdvReac Confusion Verified 04/19/20 11:43 pentazocine lactate AdvReac Hallucinati Verified 04/19/20 11:43 [From Talwin] ons propoxyphene HCl AdvReac Hallucinati Verified 04/19/20 11:43 [From Darvon] ons tramadol HCl [From Ultracet] AdvReac Nausea & Verified 04/19/20 11:43 Vomiting CIPROCINONIDE Allergy Unknown Uncoded 05/26/16 06:55 Review of Systems ROS Statement: Those systems with pertinent positive or pertinent negative responses have been documented in the HPI. ROS Other: All systems not noted in ROS Statement are negative. Past Medical History Past Medical History: CVA/TIA, Diabetes Mellitus, GI Bleed, Hyperlipidemia, Hypertension, Rheumatoid Arthritis (RA), Sleep Apnea/CPAP/BIPAP, Thyroid Disorder Additional Past Medical History / Comment(s): arthritis, murmur, cataracts, obstructive sleep apnea on CPAP. History of Any Multi-Drug Resistant Organisms: None Reported Date of last positivie culture/infection: 02/2016/C-Diff MDRO Source:: stool Past Surgical History: Appendectomy, Cholecystectomy, Hysterectomy, Joint Replacement Additional Past Surgical History / Comment(s): mouth tumor benign, rt arm bone tumor- benign, rt breast biopsy - benign, kidney biopsy for function- no problems, liver biopsy, right partial mastectomy, Rt hip replaced, ulcer caterization to address GI bleed. Past Anesthesia/Blood Transfusion Reactions: No Reported Reaction Past Psychological History: No Psychological Hx Reported Smoking Status: Never smoker Past Alcohol Use History: None Reported Past Drug Use History: None Reported - Past Family History Brother(s) Family Medical History: CVA/TIA, Hypertension Additional Family Medical History / Comment(s): She has one brother with history of stroke and hypertension. Sister(s) Additional Family Medical History / Comment(s): She has 2 sisters and both have passed 1 from Alzheimer's dementia and one from brain aneurysm. Daughter(s) Additional Family Medical History / Comment(s): She has 6 children, 4 girls and 2 boys with strong history of hypertension. Mother Family Medical History: Congestive Heart Failure (CHF) Father Family Medical History: Deep Vein Thrombosis (DVT), Liver Disease Additional Family Medical History / Comment(s): Father from alcoholic cirrhosis and had history of hypertension. General Exam Limitations: no limitations Course Vital Signs 04/19/20 10:31 Temperature 98.2 F Pulse Rate 86 Respiratory 18 Rate Blood Pressure 156/74 O2 Sat by Pulse 96 Oximetry EKG Findings - EKG Comments: EKG Findings:: EKG demonstrates sinus rhythm with first-degree AV block. Rate of 82. [place] interval 228. QRS 132. QTC of 474. no acute ST segment elevations or depressions. Left bundle-branch block present Medical Decision Making - Medical Decision Making On arrival patient is placed in room 18. A thorough history and physical exam was performed. Laboratory studies are conducted. IV was established and the patient was given a 500 bolus of normal saline. Laboratory studies demonstrate that the patient is positive for covid. Chest x-ray demonstrates no evidence for acute cardiac disease. As the patient normally cares for herself and cannot ambulate I did recommend hospital admission for which patient did agree to. Spoke with Dr. Mathews who agreed to admit the patient. I will consult Dr. Vasquez. Patient is currently awaiting a bed on the floor - Lab Data Result diagrams: 04/19/20 11:05 04/19/20 11:05 Lab Results 04/19/20 04/19/20 04/19/20 Range/Units 11:05 11:05 11:05 WBC 6.2 (3.8-10.6) k/uL RBC 3.93 (3.80-5.40) m/uL Hgb 12.1 (11.4-16.0) gm/dL Hct 36.1 (34.0-46.0) % MCV 91.9 (80.0-100.0) fL MCH 30.8 (25.0-35.0) pg MCHC 33.5 (31.0-37.0) g/dL RDW 12.4 (11.5-15.5) % Plt Count 161 (150-450) k/uL MPV 8.0 Neutrophils % 77 % Lymphocytes % 14 % Monocytes % 6 % Eosinophils % 2 % Basophils % 0 % Neutrophils # 4.7 (1.3-7.7) k/uL Lymphocytes # 0.9 L (1.0-4.8) k/uL Monocytes # 0.4 (0-1.0) k/uL Eosinophils # 0.1 (0-0.7) k/uL Basophils # 0.0 (0-0.2) k/uL PT 10.0 (9.0-12.0) sec INR 0.9 (<1.2) APTT 20.4 L (22.0-30.0) sec Sodium (137-145) mmol/L Potassium (3.5-5.1) mmol/L Chloride (98-107) mmol/L Carbon Dioxide (22-30) mmol/L Anion Gap mmol/L BUN (7-17) mg/dL Creatinine (0.52-1.04) mg/dL Est GFR (CKD-EPI)AfAm (>60 ml/min/1.73 sqM) Est GFR (CKD-EPI)NonAf (>60 ml/min/1.73 sqM) Glucose (74-99) mg/dL Plasma Lactic Acid Zaki (0.7-2.0) mmol/L Calcium (8.4-10.2) mg/dL Magnesium (1.6-2.3) mg/dL Total Bilirubin (0.2-1.3) mg/dL AST (14-36) U/L ALT (4-34) U/L Alkaline Phosphatase (38-126) U/L Creatine Kinase (30-135) U/L Troponin I (0.000-0.034) ng/mL Total Protein (6.3-8.2) g/dL Albumin (3.5-5.0) g/dL Lipase (23-300) U/L TSH (0.465-4.680) mIU/L Urine Color Urine Appearance (Clear) Urine pH (5.0-8.0) Ur Specific [place] (1.001-1.035) Urine Protein (Negative) Urine Glucose (UA) (Negative) Urine Ketones (Negative) Urine Blood (Negative) Urine Nitrite (Negative) Urine Bilirubin (Negative) Urine Urobilinogen (<2.0) mg/dL Ur Leukocyte Esterase (Negative) Urine RBC (0-5) /hpf Urine WBC (0-5) /hpf Ur Squamous Epith Cells (0-4) /hpf Coronavirus (PCR) Detected A (Not Detectd) 04/19/20 04/19/20 04/19/20 Range/Units 11:05 11:05 11:05 WBC (3.8-10.6) k/uL RBC (3.80-5.40) m/uL Hgb (11.4-16.0) gm/dL Hct (34.0-46.0) % MCV (80.0-100.0) fL MCH (25.0-35.0) pg MCHC (31.0-37.0) g/dL RDW (11.5-15.5) % Plt Count (150-450) k/uL MPV Neutrophils % % Lymphocytes % % Monocytes % % Eosinophils % % Basophils % % Neutrophils # (1.3-7.7) k/uL Lymphocytes # (1.0-4.8) k/uL Monocytes # (0-1.0) k/uL Eosinophils # (0-0.7) k/uL Basophils # (0-0.2) k/uL PT (9.0-12.0) sec INR (<1.2) APTT (22.0-30.0) sec Sodium 137 (137-145) mmol/L Potassium 4.2 (3.5-5.1) mmol/L Chloride 105 (98-107) mmol/L Carbon Dioxide 24 (22-30) mmol/L Anion Gap 8 mmol/L BUN 21 H (7-17) mg/dL Creatinine 0.77 (0.52-1.04) mg/dL Est GFR (CKD-EPI)AfAm 81 (>60 ml/min/1.73 sqM) Est GFR (CKD-EPI)NonAf 71 (>60 ml/min/1.73 sqM) Glucose 194 H (74-99) mg/dL Plasma Lactic Acid Zaki 1.2 (0.7-2.0) mmol/L Calcium 9.7 (8.4-10.2) mg/dL Magnesium 1.6 (1.6-2.3) mg/dL Total Bilirubin 0.8 (0.2-1.3) mg/dL AST 42 H (14-36) U/L ALT 40 H (4-34) U/L Alkaline Phosphatase 54 (38-126) U/L Creatine Kinase 26 L (30-135) U/L Troponin I <0.012 (0.000-0.034) ng/mL Total Protein 6.5 (6.3-8.2) g/dL Albumin 3.8 (3.5-5.0) g/dL Lipase 111 (23-300) U/L TSH 3.070 (0.465-4.680) mIU/L Urine Color Urine Appearance (Clear) Urine pH (5.0-8.0) Ur Specific [place] (1.001-1.035) Urine Protein (Negative) Urine Glucose (UA) (Negative) Urine Ketones (Negative) Urine Blood (Negative) Urine Nitrite (Negative) Urine Bilirubin (Negative) Urine Urobilinogen (<2.0) mg/dL Ur Leukocyte Esterase (Negative) Urine RBC (0-5) /hpf Urine WBC (0-5) /hpf Ur Squamous Epith Cells (0-4) /hpf Coronavirus (PCR) (Not Detectd) 04/19/20 Range/Units 11:50 WBC (3.8-10.6) k/uL RBC (3.80-5.40) m/uL Hgb (11.4-16.0) gm/dL Hct (34.0-46.0) % MCV (80.0-100.0) fL MCH (25.0-35.0) pg MCHC (31.0-37.0) g/dL RDW (11.5-15.5) % Plt Count (150-450) k/uL MPV Neutrophils % % Lymphocytes % % Monocytes % % Eosinophils % % Basophils % % Neutrophils # (1.3-7.7) k/uL Lymphocytes # (1.0-4.8) k/uL Monocytes # (0-1.0) k/uL Eosinophils # (0-0.7) k/uL Basophils # (0-0.2) k/uL PT (9.0-12.0) sec INR (<1.2) APTT (22.0-30.0) sec Sodium (137-145) mmol/L Potassium (3.5-5.1) mmol/L Chloride (98-107) mmol/L Carbon Dioxide (22-30) mmol/L Anion Gap mmol/L BUN (7-17) mg/dL Creatinine (0.52-1.04) mg/dL Est GFR (CKD-EPI)AfAm (>60 ml/min/1.73 sqM) Est GFR (CKD-EPI)NonAf (>60 ml/min/1.73 sqM) Glucose (74-99) mg/dL Plasma Lactic Acid Zaki (0.7-2.0) mmol/L Calcium (8.4-10.2) mg/dL Magnesium (1.6-2.3) mg/dL Total Bilirubin (0.2-1.3) mg/dL AST (14-36) U/L ALT (4-34) U/L Alkaline Phosphatase (38-126) U/L Creatine Kinase (30-135) U/L Troponin I (0.000-0.034) ng/mL Total Protein (6.3-8.2) g/dL Albumin (3.5-5.0) g/dL Lipase (23-300) U/L TSH (0.465-4.680) mIU/L Urine Color Yellow Urine Appearance Clear (Clear) Urine pH 6.0 (5.0-8.0) Ur Specific [place] 1.009 (1.001-1.035) Urine Protein 1+ H (Negative) Urine Glucose (UA) Negative (Negative) Urine Ketones Negative (Negative) Urine Blood Negative (Negative) Urine Nitrite Negative (Negative) Urine Bilirubin Negative (Negative) Urine Urobilinogen <2.0 (<2.0) mg/dL Ur Leukocyte Esterase Moderate H (Negative) Urine RBC <1 (0-5) /hpf Urine WBC 4 (0-5) /hpf Ur Squamous Epith Cells 1 (0-4) /hpf Coronavirus (PCR) (Not Detectd) Disposition Clinical Impression: Weakness, Diarrhea, COVID-19 Disposition: ADMITTED IP TO THIS [facility] Condition: Stable Is patient prescribed a controlled substance at d/c from ED?: No Decision to Admit Reason: Admit from EC Decision Date: 04/19/20 Decision Time: 13:05
[2020-04-19] MEDS ORDERED: ACETAMINOPHEN TAB 325 MG TAB PO PRN (13:05)
[2020-04-19] MEDS ORDERED: NALOXONE 0.4 MG/ML 1 ML VIAL IV PRN (13:05)
[2020-04-19] MEDS ORDERED: ONDANSETRON 4 MG/2 ML VIAL IVP PRN (13:05)
[2020-04-19] MEDS: SODIUM CHLORIDE 0.9% 1,000 ML IV SCH (14:38)
[2020-04-19 15:45] LABS: C Reactive Protein <5.0 mg/L (<10.0); LDH 480 U/L (313-618)
[2020-04-19 16:57] LABS: Glucose,Whole Blood 140 mg/dL (75-99)
[2020-04-19] MEDS: INSULIN ASPART (NovoLOG) 100 UNIT/ML VIAL SQ SCH ×2 (17:43→20:53)
[2020-04-19] MEDS: NIACIN TR 500 MG CAPLET PO SCH (17:50)
[2020-04-19] MEDS: PRAVASTATIN SODIUM 80 MG TAB PO SCH (17:50)
[2020-04-19 20:42] LABS: Glucose,Whole Blood 162 mg/dL (75-99)
[2020-04-19] MEDS: lisinopriL 10 MG TAB PO SCH (20:57)
--- NOTE | 2020-04-20 00:48 | CONS ---
CONSULTATION DATE OF SERVICE: 04/19/2020 REASON FOR STAY: Covid. HISTORY OF PRESENT ILLNESS: The patient is an 84 -year-old female, past medical history significant for rheumatoid arthritis, diabetes, CVA. The patient recently has been diagnosed with UTI, at [facility] and has been treated with Microbid. Patient presenting to the ER with chief complaints of cough, not feeling well. The patient mentioned she woke up this morning. She was unable to get up and ambulate. Therefore, she called EMS. The patient did have some nausea and dry skin. No vomiting. Decreased appetite. The patient denies any abdominal pain. No diarrhea. No chest pain. No shortness of breath. Minimal cough. When asked specifically for urinary symptoms, she says she does have a UTI. With these symptoms, the patient has been evaluated by the ER physician. On arrival to the ER, the patient has been afebrile. The patient is currently saturating 96% on room air. The patient did have a normal white count with mild lymphopenia. D-dimer is mildly elevated 1.04. Kidney function was normal. CRP is 5. Urine shows moderate leukocyte esterase . Covid test came back positive. The patient did have a chest x-ray, no evidence for acute pulmonary process. Patient has been admitted to the hospital. Infectious Disease was consulted for further management. She did receive a dose of Rocephin in the ER. REVIEW OF SYSTEMS: Positive points have been mentioned in HPI. Rest of systems negative. PAST MEDICAL HISTORY: CVA, TIA, diabetes mellitus, GI bleed, hyperlipidemia, hypertension, hypothyroidism, sleep apnea, rheumatoid arthritis. PAST SURGICAL HISTORY: Appendectomy, cholecystectomy, hysterectomy, right hip replacement. SOCIAL HISTORY: No history of smoking, drinking or drug use. FAMILY HISTORY: Mother history of CVA, hypertension, history of congestive heart failure. ALLERGIES: TO MULTIPLE MEDICATION LISTED ON THE CHART. NO ANTIBIOTIC ALLERGIES. MEDICATIONS: The patient is currently on Tylenol, Norvasc, Zetia, NovoLog, Levemir, Imdur, Lactobacillus, Synthroid, Zestril, Narcan, Zofran, Pravachol, and IV fluid. PHYSICAL EXAMINATION: Her blood pressure is 145/82 with a pulse of 82, temperature 98.2. She is 96% on room air. General description is an elderly female lying in bed in no distress. No tachypnea or accessory muscles of respiration use. HEENT: Examination shows no pallor or scleral icterus. Oral mucous membranes dry. NECK: Trachea central. No thyromegaly. LUNGS: Unlabored breathing. Clear to auscultation anteriorly. No wheeze or crackles. HEART S1, S2. Regular rate and rhythm. ABDOMEN: Soft, no tenderness. No guarding. No rigidity. EXTREMITIES: No edema of the feet. SKIN examination: No rash or mass palpable. NEUROLOGICAL: Patient is awake, alert, oriented times three. Mood and affect normal. LABORATORY DATA: Hemoglobin 12.1, white count 6.2, BUN of 21 and creatinine 0.77. Liver enzymes mildly elevated. CRP is normal. chest x-ray reported negative. DIAGNOSTIC IMPRESSION AND PLAN: Patient admitted to the hospital with generalized weakness, unable to get up and around with some dry heaves. This patient recently has been diagnosed with UTI at the other facility and treated with Macrobid. Urine shows leukocyte esterase but no WBC, possible partially treated urinary tract infection. The patient also had positive Covid test, however, did not have significant respiratory symptoms or respiratory compromise. Chest x-ray has been negative though she is risk of complication from Covid with concern for multiple comorbidity. PLAN: 1. Patient is ideal candidate for monochromal antibody the patient may be transitioned to observation and receive infusion at the hospital. We will discus with admitting physician. 2. Continue with Rocephin 1 g daily for partially treated UTI. 3. We will follow on clinical condition and further adjust medication if needed. Thank you for this consultation. Will follow this patient along with you. MMODL / IJN: [id number] /
[2020-04-20] MEDS: SODIUM CHLORIDE 0.9% 1,000 ML IV SCH ×2 (03:11→17:50)
[2020-04-20] MEDS: LEVOTHYROXINE 75 MCG TAB PO SCH (05:55)
[2020-04-20 06:55] LABS: Glucose,Whole Blood 201 mg/dL (75-99)
[2020-04-20] MEDS: LACTOBACILLUS ACIDOPH & BULGAR 1 EACH PACKET PO SCH (08:08)
[2020-04-20] MEDS: amLODIPine 5 MG TAB PO SCH (08:08)
[2020-04-20] MEDS: INSULIN ASPART (NovoLOG) 100 UNIT/ML VIAL SQ SCH ×4 (08:08→21:12)
[2020-04-20] MEDS: lisinopriL 10 MG TAB PO SCH ×2 (08:08→21:12)
[2020-04-20] MEDS: ISOSORBIDE MONONITRATE ER 60 MG TAB.ER.24H PO SCH (08:08)
[2020-04-20] MEDS ORDERED: MECLIZINE 12.5 MG TAB PO STA (10:29)
[2020-04-20] MEDS ORDERED: MECLIZINE 12.5 MG TAB PO PRN (10:29)
[2020-04-20 11:10] LABS: Glucose,Whole Blood 188 mg/dL (75-99)
--- NOTE | 2020-04-20 11:21 | P.HPIM ---
History of Present Illness H&P Date: 04/20/20 HISTORY AND PHYSICAL AND DISCHARGE SUMMARY: HISTORY OF PRESENT ILLNESS This is an 84-year-old female Chin of Dr. Calderón with past medical history of hospitalization at [facility] because of gastrointestinal bleeding. She underwent EGD and underwent cauterization of her duodenal bulb ulcer, history of previous CVA with right-sided weakness, history of hypothyroidism, degenerative joint disease, rheumatoid arthritis. History of C. difficile colitis in 2015. With urinary tract infection and started on antibiotic. Patient was discharged home at that time. Patient now presents to [facility] emergency center due to weakness. She does have chronic right-sided weakness due to CVA. Due to worsening weakness, patient is not able to ambulate in her home and take care of her ADLs. EMS was called and patient was brought into the hospital. Apparently she's had decreased appetite with nausea and vomiting. No fever or chills. Patient apparently had exposure to a person with Covid 19 1 week ago. [facility]. She has been afebrile since presentation, heart rate 98, blood pressure 145/71, pulse ox 94% on room air. CBC is normal except for lymphopenia at 0.9. D-dimer 1.04. Electrolytes normal, BUN 21 creatinine 0.77. Blood sugar running between 140 and 201. AST 42, ALT 40. LDH 480. CK 26. Troponin negative. C- reactive protein less than 5. Covid 19 positive. Urinalysis negative for infection. Chest x-ray reveals no evidence of acute pulmonary disease. Patient has been seen by Dr. Vasquez with recommendations for outpatient treatment with Bamlanivimab. Trochanter discussed with patient and her daughter option of discharging to [facility] for rehab and also to receive this medication. They are in agreement. Social work is working on discharge planning. Anticipate discharge today. Patient did have some lightheadedness and nausea when she got up for which orthostatics will be checked and meclizine added. REVIEW OF SYSTEMS Constitutional: No fever, no chills, no night sweats. No weight change. Reports weakness, reports fatigue, reports lethargy. No daytime sleepiness. EENT: No headache. No blurred vision or double vision, no loss of vision. No loss of Hearing, no ringing in the ears, no dizziness. No nasal drainage or congestion. No epistaxis. No sore throat. Lungs: No shortness of breath, cough, no sputum production. No wheezing. Cardiovascular: No chest pain, no lower extremity edema. No palpitations. No paroxysmal nocturnal dyspnea. No orthopnea. Reports lightheadedness or dizziness. No syncopal episodes. Abdominal: No abdominal pain. Reported nausea, vomiting. No diarrhea. No constipation. No bloody or tarry stools.. No loss of appetite. Genitourinary: No dysuria, increased frequency, urgency. No urinary retention. Musculoskeletal: No myalgias. No muscle weakness, no gait dysfunction, no frequent falls. No back pain. No neck pain. Integumentary: No wounds, no lesions. No rash or pruritus. No unusual bruising. No change in hair or nails. Neurologic: No aphasia. No facial droop. No change in mentation. No head injury. No headache. No paralysis. No paresthesia. Psychiatric: No depression. No anxiety. No mood swings. Endocrine: No abnormal blood sugars. No weight change. No excessive sweating or thirst. No cold intolerance. SOCIAL HISTORY Patient is a lifelong nonsmoker, no marijuana, street drug use or alcohol use. Patient is and lives independently with help from her family members. She does not work outside the home. No international travel. No service. She does use a cane and she has a CPAP. FAMILY HISTORY Father from alcoholic cirrhosis and had history of hypertension. Mother from congestive heart failure. Patient has one brother with history of stroke and hypertension. Patient's 2 sisters and one this past from Alzheimer's disease and one from brain aneurysm. Patient has 6 children. 4 daughters and 2 sons with strong history of hypertension. PHYSICAL EXAMINATION Gen: This is an 84-year-old female. Patient is resting in bed and appears to be comfortable and in no acute distress. HEENT: Head is atraumatic, normocephalic. Pupils equal, round. Sclerae is anicteric. NECK: Supple. No JVD. No lymphadenopathy. No thyromegaly. LUNGS: Clear to auscultation. No wheezes or rhonchi. No intercostal retractions. HEART: Regular rate and rhythm. No murmur. ABDOMEN: Soft. Bowel sounds are present. No masses. No tenderness. EXTREMITIES: No pedal edema. No calf tenderness. NEUROLOGICAL: Patient is awake, alert and oriented x3. Cranial nerves 2 through 12 are grossly intact. ASSESSMENT AND PLAN 1. COVID19 infection. Patient will be discharged to [facility]. Consult with infectious disease appreciated. Plan for treatment with Bamlanivimab 2. History of GI bleed, stable. 3. History of CVA with right-sided weakness, stable. Continue statin for secondary prevention. 4. Hypothyroidism. Continue levothyroxine 75 g daily. 5. Hyperlipidemia. Continue statin, Zetia. 6. Diabetes mellitus type 2 insulin requiring. Continue Levemir 24 units daily at 1300. 7. Hypertension. Continue lisinopril 10 mg twice daily, amlodipine 5 mg daily. 8. History of angina. Continue Imdur 60 mg daily, pravastatin. 9. Dizziness. Continue meclizine 12.5 mg 3 times a day as needed. Patient will be admitted to the hospital for a minimum of 1 night stay with plan to discharge to outpatient setting for appropriate treatment. DISCHARGE PLAN [facility]. Discharge Medication List Niacin [Niacin ER] 500 mg PO W/SUPPER 08/08/13 [History] Calcium Carbonate/Vitamin D3 [Calcium 500-Vit D3 400 Tablet] 1 tab PO W/SUPPER 01/13/14 [History] Cranberry Conc/C/Bacill Coag [Cranberry Tablet] 1 tab PO W/LUNCH 01/13/14 [History] lisinopriL [Zestril] 10 mg PO BID #0 02/27/15 [Rx] Insulin Glargine,Hum.rec.anlog [Lantus Solostar] 24 units SQ DAILY@1300 08/03/15 [History] amLODIPine [Norvasc] 5 mg PO DAILY 08/03/15 [History] Ezetimibe [Zetia] 10 mg PO W/LUNCH 03/13/16 [History] L.acidoph,Paracasei, B.lactis [Probiotic] 1 cap PO DAILY 03/13/16 [History] Multivit-Min/FA/Lycopen/Lutein [Centrum Silver Tablet] 1 tab PO W/LUNCH 03/13/16 [History] Pravastatin Sodium [Pravachol] 80 mg PO W/SUPPER 03/13/16 [History] Cholecalciferol [Vitamin D3 (25 Mcg = 1000 Iu)] 50 mcg PO HS 04/19/20 [History] Isosorbide Mononitrate ER [Imdur] 60 mg PO DAILY 04/19/20 [History] Levothyroxine Sodium [Synthroid] 75 mcg PO DAILY 04/19/20 [History] Meclizine [Antivert] 12.5 mg PO TID PRN tab 04/20/20 [Rx] Impression and plan of care have been directed as dictated by the signing physician. Kelsea Benitez nurse practitioner acting as scribe for signing physician. Past Medical History Past Medical History: CVA/TIA, Diabetes Mellitus, GI Bleed, Hyperlipidemia, Hypertension, Rheumatoid Arthritis (RA), Sleep Apnea/CPAP/BIPAP, Thyroid Disorder Additional Past Medical History / Comment(s): arthritis, murmur, cataracts, obstructive sleep apnea on CPAP. History of Any Multi-Drug Resistant Organisms: None Reported Date of last positivie culture/infection: 02/2016/C-Diff MDRO Source:: stool Past Surgical History: Appendectomy, Cholecystectomy, Hysterectomy, Joint Replacement Additional Past Surgical History / Comment(s): mouth tumor benign, rt arm bone tumor- benign, rt breast biopsy - benign, kidney biopsy for function- no problems, liver biopsy, right partial mastectomy, Rt hip replaced, ulcer caterization to address GI bleed. Past Anesthesia/Blood Transfusion Reactions: No Reported Reaction Past Psychological History: No Psychological Hx Reported Additional Psychological History / Comment(s): .Lives independently with the help of her multiple family members including her daughters. Transporter as needed. She is a lifelong nonsmoker with no marijuana, street drug use or alc ohol abuse. Does not work outside of the home. No international travel. No experience. She does use a cane for ambulation and has a CPAP. No animal exposures. Smoking Status: Never smoker Past Alcohol Use History: None Reported Past Drug Use History: None Reported - Past Family History Brother(s) Family Medical History: CVA/TIA, Hypertension Additional Family Medical History / Comment(s): She has one brother with history of stroke and hypertension. Sister(s) Additional Family Medical History / Comment(s): She has 2 sisters and both have passed 1 from Alzheimer's dementia and one from brain aneurysm. Daughter(s) Additional Family Medical History / Comment(s): She has 6 children, 4 girls and 2 boys with strong history of hypertension. Mother Family Medical History: Congestive Heart Failure (CHF) Father Family Medical History: Deep Vein Thrombosis (DVT), Liver Disease Additional Family Medical History / Comment(s): Father from alcoholic cirrhosis and had history of hypertension. Medications and Allergies Home Medications Medication Instructions Recorded Confirmed Type Niacin [Niacin ER] 500 mg PO W/SUPPER 08/08/13 04/19/20 History Calcium Carbonate/Vitamin D3 1 tab PO W/SUPPER 01/13/14 04/19/20 History [Calcium 500-Vit D3 400 Tablet] Cranberry Conc/C/Bacill Coag 1 tab PO W/LUNCH 01/13/14 04/19/20 History [Cranberry Tablet] lisinopriL [Zestril] 10 mg PO BID #0 02/27/15 04/19/20 Rx Insulin Glargine,Hum.rec.anlog 24 units SQ DAILY@1300 08/03/15 04/19/20 History [Lantus Solostar] amLODIPine [Norvasc] 5 mg PO DAILY 08/03/15 04/19/20 History Ezetimibe [Zetia] 10 mg PO W/LUNCH 03/13/16 04/19/20 History L.acidoph,Paracasei, B.lactis 1 cap PO DAILY 03/13/16 04/19/20 History [Probiotic] Multivit-Min/FA/Lycopen/Lutein 1 tab PO W/LUNCH 03/13/16 04/19/20 History [Centrum Silver Tablet] Pravastatin Sodium [Pravachol] 80 mg PO W/SUPPER 03/13/16 04/19/20 History Cholecalciferol [Vitamin D3 (25 50 mcg PO HS 04/19/20 04/19/20 History Mcg = 1000 Iu)] Isosorbide Mononitrate ER [Imdur] 60 mg PO DAILY 04/19/20 04/19/20 History Levothyroxine Sodium [Synthroid] 75 mcg PO DAILY 04/19/20 04/19/20 History Allergies Allergy/AdvReac Type Severity Reaction Status Date / Time allantoin [From Orajel] Allergy Swelling Verified 04/19/20 11:43 benzalkonium chloride Allergy Swelling Verified 04/19/20 11:43 [From Orajel] benzocaine [From Orajel] Allergy Swelling Verified 04/19/20 11:43 carbamide peroxide Allergy Swelling Verified 04/19/20 11:43 [From Orajel] codeine Allergy Nausea & Verified 04/19/20 11:43 Vomiting dipyridamole Allergy Unknown Verified 04/19/20 11:43 [From Persantine] enalapril maleate Allergy Swelling Verified 04/19/20 11:43 [From Vasotec] enalaprilat dihydrate Allergy Swelling Verified 04/19/20 11:43 [From Vasotec] furosemide [From Lasix] Allergy Unknown Verified 04/19/20 11:43 glimepiride [From Amaryl] Allergy Unknown Verified 04/19/20 11:43 hydralazine Allergy Unknown Verified 04/19/20 11:43 methotrexate Allergy Swelling Verified 04/19/20 11:43 naproxen [From Naprosyn] Allergy Unknown Verified 04/19/20 11:43 Penicillins Allergy Unknown Verified 04/19/20 11:43 Sulfa (Sulfonamide Allergy Swelling Verified 04/19/20 11:43 Antibiotics) zinc chloride [From Orajel] Allergy Swelling Verified 04/19/20 11:43 acetaminophen [From Ultracet] AdvReac Nausea & Verified 04/19/20 11:43 Vomiting diazepam [From Valium] AdvReac Confusion Verified 04/19/20 11:43 pentazocine lactate AdvReac Hallucinati Verified 04/19/20 11:43 [From Talwin] ons propoxyphene HCl AdvReac Hallucinati Verified 04/19/20 11:43 [From Darvon] ons tramadol HCl [From Ultracet] AdvReac Nausea & Verified 04/19/20 11:43 Vomiting CIPROCINONIDE Allergy Unknown Uncoded 05/26/16 06:55 Physical Exam Vitals: Vital Signs Temp Pulse Pulse Resp BP BP Pulse Ox 04/20/20 07:45 85 15 04/20/20 05:17 98.8 F 85 15 169/75 95 04/20/20 02:03 98.3 F 82 16 165/65 94 L 04/19/20 23:24 98.7 F 84 17 148/68 93 L 04/19/20 19:59 18 04/19/20 15:22 82 18 145/82 96 04/19/20 10:31 98.2 F 86 18 156/74 96 Intake and Output 04/19/20 04/20/20 04/20/20 22:59 06:59 14:59 Other: # Voids 3 5 Weight 57.153 kg Results CBC & Chem 7: 04/19/20 11:05 04/19/20 11:05 Labs: Abnormal Lab Results - Last 24 Hours (Table) 04/19/20 04/19/20 04/19/20 Range/Units 11:05 11:05 11:05 Lymphocytes # 0.9 L (1.0-4.8) k/uL APTT 20.4 L (22.0-30.0) sec D-Dimer (<0.60) mg/L FEU BUN (7-17) mg/dL Glucose (74-99) mg/dL POC Glucose (mg/dL) (75-99) mg/dL AST (14-36) U/L ALT (4-34) U/L Creatine Kinase (30-135) U/L Urine Protein (Negative) Ur Leukocyte Esterase (Negative) Coronavirus (PCR) Detected A (Not Detectd) 04/19/20 04/19/20 04/19/20 Range/Units 11:05 11:05 11:50 Lymphocytes # (1.0-4.8) k/uL APTT (22.0-30.0) sec D-Dimer 1.04 H (<0.60) mg/L FEU BUN 21 H (7-17) mg/dL Glucose 194 H (74-99) mg/dL POC Glucose (mg/dL) (75-99) mg/dL AST 42 H (14-36) U/L ALT 40 H (4-34) U/L Creatine Kinase 26 L (30-135) U/L Urine Protein 1+ H (Negative) Ur Leukocyte Esterase Moderate H (Negative) Coronavirus (PCR) (Not Detectd) 04/19/20 04/19/20 04/20/20 Range/Units 16:54 20:41 06:52 Lymphocytes # (1.0-4.8) k/uL APTT (22.0-30.0) sec D-Dimer (<0.60) mg/L FEU BUN (7-17) mg/dL Glucose (74-99) mg/dL POC Glucose (mg/dL) 140 H 162 H 201 H (75-99) mg/dL AST (14-36) U/L ALT (4-34) U/L Creatine Kinase (30-135) U/L Urine Protein (Negative) Ur Leukocyte Esterase (Negative) Coronavirus (PCR) (Not Detectd) Thrombosis Risk Factor Assmnt - Choose All That Apply Any of the Below Risk Factors Present?: No Other Risk Factors: Yes Each Risk Factor Represents 3 Points: Age 75 years or older Thrombosis Risk Factor Assessment Total Risk Factor Score: 3 Thrombosis Risk Factor Assessment Level: Moderate Risk
[2020-04-20] MEDS: EZETIMIBE 10 MG TAB PO SCH (11:59)
[2020-04-20] MEDS: INSULIN DETEMIR (LEVEMIR) 100 UNIT/ML SYR SQ SCH (13:03)
--- NOTE | 2020-04-20 15:03 | XR ---
EXAMINATION TYPE: XR chest 1V portable DATE OF EXAM: 04/20/2020 COMPARISON: 04/19/2020 INDICATION: Dizziness Covid TECHNIQUE: Single frontal view of the chest is obtained. FINDINGS: The heart size is normal. The pulmonary vasculature is normal. Minimal scattered infiltrate may be present. This is nonspecific. IMPRESSION: 1. Nonspecific minimal increased lung markings.
[2020-04-20 16:57] LABS: Glucose,Whole Blood 174 mg/dL (75-99)
[2020-04-20] MEDS: PRAVASTATIN SODIUM 80 MG TAB PO SCH (17:50)
[2020-04-20] MEDS: NIACIN TR 500 MG CAPLET PO SCH (17:50)
[2020-04-20 18:36] LABS: African American GFR (CKD) 67.6 (60.0-200.0); Albumin 4.3 g/dL (3.80-4.90); Albumin/Globulin Ratio 2.26 (1.60-3.17); Anion Gap 7.9 mmol/L (4.00-12.00); BUN/Creat Ratio 17.78 Ratio (12.00-20.00); Calcium 9.1 mg/dL (8.7-10.3); Carbon Dioxide 27.1 mmol/L (21.6-31.8); Globulin 1.9 g/dL (1.6-3.3); Non-African American GFR(CKD) 58.3 (60.0-200.0); Potassium 4.5 mmol/L (3.5-5.5); Total Bilirubin 1.5 mg/dL (0.3-1.2); Total Protein 6.2 g/dL (6.2-8.2)
[2020-04-20 20:44] LABS: Glucose,Whole Blood 186 mg/dL (75-99)
[2020-04-21] MEDS: SODIUM CHLORIDE 0.9% 1,000 ML IV SCH ×2 (05:46→08:22)
[2020-04-21] MEDS: LEVOTHYROXINE 75 MCG TAB PO SCH (05:47)
[2020-04-21 07:00] LABS: Glucose,Whole Blood 188 mg/dL (75-99)
[2020-04-21] MEDS: lisinopriL 10 MG TAB PO SCH (08:21)
[2020-04-21] MEDS: LACTOBACILLUS ACIDOPH & BULGAR 1 EACH PACKET PO SCH (08:21)
[2020-04-21] MEDS: ISOSORBIDE MONONITRATE ER 60 MG TAB.ER.24H PO SCH (08:21)
[2020-04-21] MEDS: amLODIPine 5 MG TAB PO SCH (08:21)
[2020-04-21] MEDS: INSULIN ASPART (NovoLOG) 100 UNIT/ML VIAL SQ SCH ×2 (08:22→12:31)
[2020-04-21 11:02] VITALS: BP 132/56; PULSE 79; RESP 16; TEMP 98.2
[2020-04-21 12:21] LABS: Glucose,Whole Blood 230 mg/dL (75-99)
[2020-04-21] MEDS: EZETIMIBE 10 MG TAB PO SCH (12:31)
[2020-04-21] MEDS: INSULIN DETEMIR (LEVEMIR) 100 UNIT/ML SYR SQ SCH (12:32)
--- NOTE | 2020-04-21 12:47 | P.PN ---
Subjective Progress Note Date: 04/20/20 HISTORY OF PRESENT ILLNESS An 84-year-old female patient who was recently treated in the emergen cy center at [facility] for UTI and was discharged home on Macrobid. Patient now presents to [facility] due to cough and not feeling well with generalized weakness. Patient was unable to ambulate at home and EMS was called. She did have some nausea. No vomiting. There is decreased appetite. She is not requiring oxygen. She has normal white count with mild lymphopenia. D-dimer was 1.04. CRP 5. COVID19 test was positive. It was recommended the patient be transferred to the outpatient setting for Bamlanivimab treatment but due to dizziness, patient was not discharged from the inpatient setting. She has been started on Rocephin for possible urinary tract infection. Patient denies having any chest pain or shortness of breath. No nausea vomiting.. PHYSICAL EXAMINATION Gen: This is a 84-year-old female. Patient is resting in bed and appears to be comfortable and in no acute distress. HEENT: Head is atraumatic, normocephalic. Pupils equal, round. Sclerae is anicteric. NECK: Supple. No JVD. No lymphadenopathy. LUNGS: Clear to auscultation. No wheezes or rhonchi. No intercostal retractions. HEART: Regular rate and rhythm. ABDOMEN: Soft. Bowel sounds are present. No masses. No tenderness. EXTREMITIES: No pedal edema. No calf tenderness. NEUROLOGICAL: Patient is awake, alert and oriented x3. ASSESSMENT Covid 19 infection Possible urinary tract infection PLAN Recommend discharge to outpatient setting for Bamlanivimab med Continue Rocephin 1 g IV piggyback daily Monitor blood culture Further recommendations as patient progresses. The above dictated assessment and findings were discussed with Dr. Vasquez. The impression and plan of care have been directed as dictated. Kelsea Benitez nurse practitioner acting as scribe for Dr. Vasquez. Objective - Vital Signs Vital signs: Vital Signs Temp 98.2 F 04/20/20 10:08 Pulse 98 04/20/20 10:08 Resp 18 04/20/20 10:08 BP 106/58 04/20/20 11:30 Pulse Ox 94 L 04/20/20 10:08 Intake & Output 04/19/20 04/20/20 04/20/20 18:59 06:59 18:59 Weight 57.153 kg Other: # Voids 3 5 - Labs CBC & Chem 7: 04/19/20 11:05 04/20/20 06:25 Labs: Abnormal Lab Results - Last 24 Hours (Table) 04/19/20 04/19/20 04/19/20 Range/Units 11:05 16:54 20:41 D-Dimer 1.04 H (<0.60) mg/L FEU POC Glucose (mg/dL) 140 H 162 H (75-99) mg/dL 04/20/20 04/20/20 Range/Units 06:52 11:08 D-Dimer (<0.60) mg/L FEU POC Glucose (mg/dL) 201 H 188 H (75-99) mg/dL
--- NOTE | 2020-04-21 15:16 | P.DS ---
Providers Date of admission: 04/19/20 13:05 Attending physician: Abigail Mathews Consults: 04/19/20 13:08 Consult Physician Urgent Consulting Provider: Bladimir Vasquez Consult Reason/Comments: acute covid infection Do you want consulting provider notified?: Yes Primary care physician: [facility] Course: An 84-year-old female patient who was recently treated in the emergency center at [facility] for UTI and was discharged home on Macrobid. Patient now presents to [facility] due to cough and not feeling well with generalized weakness. Patient was unable to ambulate at home and EMS was called. She did have some nausea. No vomiting. There is decreased appetite. She is not requiring oxygen. She has normal white count with mild lymphopenia. D-dimer was 1.04. CRP 5. COVID19 test was positive. It was recommended the patient be transferred to the outpatient setting for Bamlanivimab treatment but due to dizziness, patient was not discharged from the inpatient setting. She has been started on Rocephin for possible urinary tract infection. Patient denies having any chest pain or shortness of breath. No nausea vomiting.. 04/21, patient is doing well, still weak but better on steadiness on gait , still requiring helpt for tyherpy, discharge today to [facility], bamlanivimab infusion already ordered for infusion within 48 hours of arrival. transport via wheelchair van. no olgihtheded sierras, 02 at ra94%, has no infilarate on xray will rx shourt course of deamethasone 6 mg daily, has mod transaminitis noted on lab today. Has some cough no fever. PHYSICAL EXAMINATION Gen: This is a 84-year-old female. Patient is resting in bed and appears to be comfortable and in no acute distress. HEENT: Head is atraumatic, normocephalic. Pupils equal, round. Sclerae is anicteric. NECK: Supple. No JVD. No lymphadenopathy. LUNGS: Clear to auscultation. No wheezes or rhonchi. No intercostal retractions. HEART: Regular rate and rhythm. ABDOMEN: Soft. Bowel sounds are present. No masses. No tenderness. EXTREMITIES: No pedal edema. No calf tenderness. NEUROLOGICAL: Patient is awake, alert and oriented x3. FINAL DIAGNOSIS 1. COVID19 infection. Patient will be discharged to [facility] today for subacute rehab, fall risks frail elderly. Consult with infectious disease appreciated. Plan for treatment with Bamlanivimab as OP at [facility] on the [place] for which facility has medication for infusion. montior for hypoxemia while at [facility]. start low dose dexamethasone x 7 days 6 mg daily. unable to get aspirin for dvt prophylaxis while on covid , high risk for thromboemboli cdisease, will start pepcid 20 mgx 30 mdays 2. History of GI bleed, stable.rx pepcid while on dexa 3. History of CVA with right-sided weakness, stable. Continue statin for secondary prevention. 4. Hypothyroidism. Continue levothyroxine 75 g daily. 5. Hyperlipidemia. Continue statin, Zetia. 6. Diabetes mellitus type 2 insulin requiring. Continue Levemir 24 units daily at 1300. 7. Hypertension. Continue lisinopril 10 mg twice daily, amlodipine 5 mg daily. 8. History of angina. Continue Imdur 60 mg daily, pravastatin. 9. Dizziness. Continue meclizine 12.5 mg 3 times a day as needed. Patient will be admitted to the hospital for a minimum of 1 night stay with plan to discharge to outpatient setting for appropriate treatment. DISCHARGE PLAN [facility]. today for pt OT and care and recovery for covid Discharge Medication List Niacin [Niacin ER] 500 mg PO W/SUPPER 08/08/13 [History] Calcium Carbonate/Vitamin D3 [Calcium 500-Vit D3 400 Tablet] 1 tab PO W/SUPPER 01/13/14 [History] Cranberry Conc/C/Bacill Coag [Cranberry Tablet] 1 tab PO W/LUNCH 01/13/14 [History] lisinopriL [Zestril] 10 mg PO BID #0 02/27/15 [Rx] Insulin Glargine,Hum.rec.anlog [Lantus Solostar] 24 units SQ DAILY@1300 08/03/15 [History] amLODIPine [Norvasc] 5 mg PO DAILY 08/03/15 [History] Ezetimibe [Zetia] 10 mg PO W/LUNCH 03/13/16 [History] L.acidoph,Paracasei, B.lactis [Probiotic] 1 cap PO DAILY 03/13/16 [History] Multivit-Min/FA/Lycopen/Lutein [Centrum Silver Tablet] 1 tab PO W/LUNCH 03/13/16 [History] Pravastatin Sodium [Pravachol] 80 mg PO W/SUPPER 03/13/16 [History] Cholecalciferol [Vitamin D3 (25 Mcg = 1000 Iu)] 50 mcg PO HS 04/19/20 [History] Isosorbide Mononitrate ER [Imdur] 60 mg PO DAILY 04/19/20 [History] Levothyroxine Sodium [Synthroid] 75 mcg PO DAILY 04/19/20 [History] Meclizine [Antivert] 12.5 mg PO TID PRN tab 04/20/20 [Rx] dexAMETHasone [Dexamethasone] 6 mg PO DAILY 10 Days #10 tablet 04/21/20 [Rx] Patient Condition at Discharge: Stable Plan - Discharge Summary New Discharge Prescriptions: New Meclizine [Antivert] 12.5 mg PO TID PRN tab PRN Reason: Vertigo dexAMETHasone [Dexamethasone] 6 mg PO DAILY 10 Days #10 tablet Famotidine [Pepcid] 20 mg PO BID 30 Days tablet Continue Niacin [Niacin ER] 500 mg PO W/SUPPER Cranberry Conc/C/Bacill Coag [Cranberry Tablet] 1 tab PO W/LUNCH Calcium Carbonate/Vitamin D3 [Calcium 500-Vit D3 400 Tablet] 1 tab PO W/SUPPER lisinopriL [Zestril] 10 mg PO BID #0 Insulin Glargine,Hum.rec.anlog [Lantus Solostar] 24 units SQ DAILY@1300 amLODIPine [Norvasc] 5 mg PO DAILY L.acidoph,Paracasei, B.lactis [Probiotic] 1 cap PO DAILY Pravastatin Sodium [Pravachol] 80 mg PO W/SUPPER Multivit-Min/FA/Lycopen/Lutein [Centrum Silver Tablet] 1 tab PO W/LUNCH Ezetimibe [Zetia] 10 mg PO W/LUNCH Cholecalciferol [Vitamin D3 (25 Mcg = 1000 Iu)] 50 mcg PO HS Isosorbide Mononitrate ER [Imdur] 60 mg PO DAILY Levothyroxine Sodium [Synthroid] 75 mcg PO DAILY Discharge Medication List Niacin [Niacin ER] 500 mg PO W/SUPPER 08/08/13 [History] Calcium Carbonate/Vitamin D3 [Calcium 500-Vit D3 400 Tablet] 1 tab PO W/SUPPER 01/13/14 [History] Cranberry Conc/C/Bacill Coag [Cranberry Tablet] 1 tab PO W/LUNCH 01/13/14 [History] lisinopriL [Zestril] 10 mg PO BID #0 02/27/15 [Rx] Insulin Glargine,Hum.rec.anlog [Lantus Solostar] 24 units SQ DAILY@1300 08/03/15 [History] amLODIPine [Norvasc] 5 mg PO DAILY 08/03/15 [History] Ezetimibe [Zetia] 10 mg PO W/LUNCH 03/13/16 [History] L.acidoph,Paracasei, B.lactis [Probiotic] 1 cap PO DAILY 03/13/16 [History] Multivit-Min/FA/Lycopen/Lutein [Centrum Silver Tablet] 1 tab PO W/LUNCH 03/13/16 [History] Pravastatin Sodium [Pravachol] 80 mg PO W/SUPPER 03/13/16 [History] Cholecalciferol [Vitamin D3 (25 Mcg = 1000 Iu)] 50 mcg PO HS 04/19/20 [History] Isosorbide Mononitrate ER [Imdur] 60 mg PO DAILY 04/19/20 [History] Levothyroxine Sodium [Synthroid] 75 mcg PO DAILY 04/19/20 [History] Meclizine [Antivert] 12.5 mg PO TID PRN tab 04/20/20 [Rx] Famotidine [Pepcid] 20 mg PO BID 30 Days tablet 04/21/20 [Rx] dexAMETHasone [Dexamethasone] 6 mg PO DAILY 10 Days #10 tablet 04/21/20 [Rx] Follow up Appointment(s)/Referral(s): Harshal Calderón MD [Primary Care Provider] - 1-2 days Discharge Disposition: TRANSFER TO SNF/ECF
== END 2020-04-21 16:49 | DRG 178 ==
LOC: EC 10:30 → 4SSUR 13:05
PROVIDERS: ADMIT Family Medicine; ATTEND Family Medicine
DX: U07.1 COVID-19 (principal); I69.351 Hemiplegia and hemiparesis following cerebral infarction affecting right dominant side; N39.0 Urinary tract infection, site not specified; Z96.641 Presence of right artificial hip joint; M06.9 Rheumatoid arthritis, unspecified; I10 Essential (primary) hypertension; E78.5 Hyperlipidemia, unspecified; E11.9 Type 2 diabetes mellitus without complications; E03.9 Hypothyroidism, unspecified; R42 Dizziness and giddiness; D72.810 Lymphocytopenia; K26.9 Duodenal ulcer, unspecified as acute or chronic, without hemorrhage or perforation; Z90.710 Acquired absence of both cervix and uterus; Z86.19 Personal history of other infectious and parasitic diseases; Z82.49 Family history of ischemic heart disease and other diseases of the circulatory system; Z82.0 Family history of epilepsy and other diseases of the nervous system; Z79.899 Other long term (current) drug therapy; Z79.890 Hormone replacement therapy; Z79.4 Long term (current) use of insulin; Z88.4 Allergy status to anesthetic agent; Z88.5 Allergy status to narcotic agent; Z88.2 Allergy status to sulfonamides; Z88.8 Allergy status to other drugs, medicaments and biological substances; Z90.49 Acquired absence of other specified parts of digestive tract
CPT/HCPCS: 36415; 71045; 71046; 80053; 81001; 82550; 83605; 83615; 83690; 83735; 84145; 84443; 84484; 85025; 85379; 85610; 85730; 86140; 87040; 87635; 93005; 96361; 96374; 96375; 99285

== ENCOUNTER 2020-05-10 12:28 | Inpatient (IN) | payer MEDICARE, BC ==
[2020-05-10] MEDS ORDERED: SODIUM CHLORIDE 0.9% 500 ML 500 ML IV STA (12:40)
[2020-05-10] MEDS ORDERED: MORPHINE SULFATE 2 MG/ML SYRINGE IVP STA (12:40)
[2020-05-10] MEDS ORDERED: ONDANSETRON 4 MG/2 ML VIAL IVP STA (12:40)
[2020-05-10] MEDS ORDERED: PANTOPRAZOLE 40 MG/10 ML VIAL IVP STA (12:40)
--- NOTE | 2020-05-10 12:42 | ED ---
General Adult HPI - General Chief complaint: Nausea/Vomiting/Diarrhea Stated complaint: Covid+, C-Diff Time Seen by Provider: 05/10/20 12:29 Source: patient, EMS, RN notes reviewed Mode of arrival: EMS Limitations: no limitations - History of Present Illness Initial comments: Patient is a pleasant 84-year-old female presenting to the emergency Department with complaints of nausea and vomiting. Patient did recently have C. diff and is on oral vancomycin still. No diarrhea anymore at this time. Patient does have some mild abdominal discomfort. No fevers. Patient does have nasal drainage and congestion. Patient was diagnosed with rotavirus just under one month ago. No history of chronic symptoms. - Related Data Home Medications Medication Instructions Recorded Confirmed Calcium Carbonate/Vitamin D3 1 tab PO AC-SUPPER 01/13/14 05/10/20 [Calcium 500-Vit D3 400 Tablet] Cranberry Conc/C/Bacill Coag 1 tab PO AC-LUNCH 01/13/14 05/10/20 [Cranberry Tablet] Insulin Glargine,Hum.rec.anlog 12 units SQ AC-LUNCH 08/03/15 05/10/20 [Lantus Solostar] amLODIPine [Norvasc] 5 mg PO HS 08/03/15 05/10/20 Ezetimibe [Zetia] 10 mg PO AC-LUNCH 03/13/16 05/10/20 L.acidoph,Paracasei, B.lactis 1 cap PO PC-BRKFST 03/13/16 05/10/20 [Probiotic] Multivit-Min/FA/Lycopen/Lutein 1 tab PO AC-LUNCH 03/13/16 05/10/20 [Centrum Silver Tablet] Pravastatin Sodium [Pravachol] 80 mg PO AC-SUPPER 03/13/16 05/10/20 Cholecalciferol [Vitamin D3 (25 50 mcg PO HS 04/19/20 05/10/20 Mcg = 1000 Iu)] Isosorbide Mononitrate ER [Imdur] 60 mg PO PC-BRKFST 04/19/20 05/10/20 Levothyroxine Sodium [Synthroid] 75 mcg PO AC-BRKFST 04/19/20 05/10/20 Aspirin EC [Ecotrin Low Dose] 81 mg PO PC-BRKFST 05/10/20 05/10/20 Cholestyramine (with Sugar) 4 gm PO PC-BID 05/10/20 05/10/20 [Cholestyramine Packet] Niacin 500 mg PO AC-SUPPER 05/10/20 05/10/20 Vancomycin HCl [Vancocin HCl] See Taper PO DIRECTED 05/10/20 05/10/20 lisinopriL [Zestril] 20 mg PO PC-BRKFST 05/10/20 05/10/20 Allergies Allergy/AdvReac Type Severity Reaction Status Date / Time allantoin [From Orajel] Allergy Swelling Verified 05/10/20 13:26 benzalkonium chloride Allergy Swelling Verified 05/10/20 13:26 [From Orajel] benzocaine [From Orajel] Allergy Swelling Verified 05/10/20 13:26 carbamide peroxide Allergy Swelling Verified 05/10/20 13:26 [From Orajel] codeine Allergy Nausea & Verified 05/10/20 13:26 Vomiting dipyridamole Allergy Unknown Verified 05/10/20 13:26 [From Persantine] enalapril maleate Allergy Swelling Verified 05/10/20 13:26 [From Vasotec] enalaprilat dihydrate Allergy Swelling Verified 05/10/20 13:26 [From Vasotec] furosemide [From Lasix] Allergy Unknown Verified 05/10/20 13:26 glimepiride [From Amaryl] Allergy Unknown Verified 05/10/20 13:26 hydralazine Allergy Unknown Verified 05/10/20 13:26 methotrexate Allergy Swelling Verified 05/10/20 13:26 naproxen [From Naprosyn] Allergy Unknown Verified 05/10/20 13:26 Penicillins Allergy Unknown Verified 05/10/20 13:26 Sulfa (Sulfonamide Allergy Swelling Verified 05/10/20 13:26 Antibiotics) zinc chloride [From Orajel] Allergy Swelling Verified 05/10/20 13:26 acetaminophen [From Ultracet] AdvReac Nausea & Verified 05/10/20 13:26 Vomiting diazepam [From Valium] AdvReac Confusion Verified 05/10/20 13:26 pentazocine lactate AdvReac Hallucinati Verified 05/10/20 13:26 [From Talwin] ons propoxyphene HCl AdvReac Hallucinati Verified 05/10/20 13:26 [From Darvon] ons tramadol HCl [From Ultracet] AdvReac Nausea & Verified 05/10/20 13:26 Vomiting CIPROCINONIDE Allergy Unknown Uncoded 05/10/20 13:26 Review of Systems ROS Statement: Those systems with pertinent positive or pertinent negative responses have been documented in the HPI. ROS Other: All systems not noted in ROS Statement are negative. Constitutional: Denies: fever Eyes: Denies: eye pain ENT: Denies: ear pain Respiratory: Denies: dyspnea Cardiovascular: Denies: chest pain Endocrine: Denies: fatigue Gastrointestinal: Reports: as per HPI, abdominal pain, nausea, vomiting. Heber es: diarrhea Genitourinary: Denies: dysuria Musculoskeletal: Denies: back pain Skin: Denies: rash Neurological: Denies: weakness Past Medical History Past Medical History: CVA/TIA, Diabetes Mellitus, GI Bleed, Hyperlipidemia, Hypertension, Rheumatoid Arthritis (RA), Sleep Apnea/CPAP/BIPAP, Thyroid Disorder Additional Past Medical History / Comment(s): arthritis, murmur, cataracts, obstructive sleep apnea on CPAP. History of Any Multi-Drug Resistant Organisms: None Reported Date of last positivie culture/infection: 02/2016/C-Diff MDRO Source:: stool Past Surgical History: Appendectomy, Cholecystectomy, Hysterectomy, Joint Replac ement Additional Past Surgical History / Comment(s): mouth tumor benign, rt arm bone tumor- benign, rt breast biopsy - benign, kidney biopsy for function- no problems, liver biopsy, right partial mastectomy, Rt hip replaced, ulcer caterization to address GI bleed. Past Anesthesia/Blood Transfusion Reactions: No Reported Reaction Past Psychological History: No Psychological Hx Reported Smoking Status: Never smoker Past Alcohol Use History: None Reported Past Drug Use History: None Reported - Past Family History Brother(s) Family Medical History: CVA/TIA, Hypertension Additional Family Medical History / Comment(s): She has one brother with history of stroke and hypertension. Sister(s) Additional Family Medical History / Comment(s): She has 2 sisters and both have passed 1 from Alzheimer's dementia and one from brain aneurysm. Daughter(s) Additional Family Medical History / Comment(s): She has 6 children, 4 girls and 2 boys with strong history of hypertension. Mother Family Medical History: Congestive Heart Failure (CHF) Father Family Medical History: Deep Vein Thrombosis (DVT), Liver Disease Additional Family Medical History / Comment(s): Father from alcoholic cirrhosis and had history of hypertension. General Exam Limitations: no limitations General appearance: alert, in no apparent distress Eye exam: Present: normal appearance, PERRL ENT exam: Present: normal oropharynx Neck exam: Present: normal inspection Respiratory exam: Present: normal lung sounds bilaterally Cardiovascular Exam: Present: regular rate, normal rhythm GI/Abdominal exam: Present: soft, tenderness (Moderate lower abdomen tenderness), diminished bowel sounds. Absent: distended, guarding, rebound, rigid Extremities exam: Present: normal inspection Neurological exam: Present: alert Psychiatric exam: Present: normal affect, normal mood Skin exam: Present: normal color Course Vital Signs 05/10/20 05/10/20 05/10/20 12:31 14:05 15:56 Temperature 99.7 F H Pulse Rate 94 94 88 Respiratory 18 16 16 Rate Blood Pressure 150/70 146/58 142/60 O2 Sat by Pulse 98 98 98 Oximetry Medical Decision Making - Medical Decision Making Patient reevaluated and updated. Case discussed with Dr. Mathews, covering for Dr. Calderón, who will admit. She agrees with antibiotics, IV Flagyl and continue oral vancomycin. She would like liquid diet and consult with Dr. Groves as well as Dr. Ball. - Lab Data Result diagrams: 05/10/20 13:20 05/10/20 13:20 Lab Results 05/10/20 05/10/20 05/10/20 Range/Units 13:20 13:20 13:20 WBC 12.0 H (3.8-10.6) k/uL RBC 3.56 L (3.80-5.40) m/uL Hgb 10.8 L (11.4-16.0) gm/dL Hct 33.1 L (34.0-46.0) % MCV 93.0 (80.0-100.0) fL MCH 30.3 (25.0-35.0) pg MCHC 32.6 (31.0-37.0) g/dL RDW 12.8 (11.5-15.5) % Plt Count 296 (150-450) k/uL MPV 7.3 Neutrophils % 87 % Lymphocytes % 8 % Monocytes % 3 % Eosinophils % 0 % Basophils % 0 % Neutrophils # 10.4 H (1.3-7.7) k/uL Lymphocytes # 1.0 (1.0-4.8) k/uL Monocytes # 0.4 (0-1.0) k/uL Eosinophils # 0.0 (0-0.7) k/uL Basophils # 0.0 (0-0.2) k/uL PT 10.2 (9.0-12.0) sec INR 0.9 (<1.2) APTT 20.7 L (22.0-30.0) sec Sodium 139 (137-145) mmol/L Potassium 4.7 (3.5-5.1) mmol/L Chloride 102 (98-107) mmol/L Carbon Dioxide 30 (22-30) mmol/L Anion Gap 7 mmol/L BUN 37 H (7-17) mg/dL Creatinine 0.94 (0.52-1.04) mg/dL Est GFR (CKD-EPI)AfAm 64 (>60 ml/min/1.73 sqM) Est GFR (CKD-EPI)NonAf 56 (>60 ml/min/1.73 sqM) Glucose 176 H (74-99) mg/dL Calcium 9.6 (8.4-10.2) mg/dL Total Bilirubin 0.9 (0.2-1.3) mg/dL AST 21 (14-36) U/L ALT 55 H (4-34) U/L Alkaline Phosphatase 117 (38-126) U/L Total Protein 5.6 L (6.3-8.2) g/dL Albumin 3.0 L (3.5-5.0) g/dL Amylase 67 (30-110) U/L Lipase 379 H (23-300) U/L Urine Color Urine Appearance (Clear) Urine pH (5.0-8.0) Ur Specific [place] (1.001-1.035) Urine Protein (Negative) Urine Glucose (UA) (Negative) Urine Ketones (Negative) Urine Blood (Negative) Urine Nitrite (Negative) Urine Bilirubin (Negative) Urine Urobilinogen (<2.0) mg/dL Ur Leukocyte Esterase (Negative) Coronavirus (PCR) (Not Detectd) 05/10/20 05/10/20 Range/Units 13:30 14:25 WBC (3.8-10.6) k/uL RBC (3.80-5.40) m/uL Hgb (11.4-16.0) gm/dL Hct (34.0-46.0) % MCV (80.0-100.0) fL MCH (25.0-35.0) pg MCHC (31.0-37.0) g/dL RDW (11.5-15.5) % Plt Count (150-450) k/uL MPV Neutrophils % % Lymphocytes % % Monocytes % % Eosinophils % % Basophils % % Neutrophils # (1.3-7.7) k/uL Lymphocytes # (1.0-4.8) k/uL Monocytes # (0-1.0) k/uL Eosinophils # (0-0.7) k/uL Basophils # (0-0.2) k/uL PT (9.0-12.0) sec INR (<1.2) APTT (22.0-30.0) sec Sodium (137-145) mmol/L Potassium (3.5-5.1) mmol/L Chloride (98-107) mmol/L Carbon Dioxide (22-30) mmol/L Anion Gap mmol/L BUN (7-17) mg/dL Creatinine (0.52-1.04) mg/dL Est GFR (CKD-EPI)AfAm (>60 ml/min/1.73 sqM) Est GFR (CKD-EPI)NonAf (>60 ml/min/1.73 sqM) Glucose (74-99) mg/dL Calcium (8.4-10.2) mg/dL Total Bilirubin (0.2-1.3) mg/dL AST (14-36) U/L ALT (4-34) U/L Alkaline Phosphatase (38-126) U/L Total Protein (6.3-8.2) g/dL Albumin (3.5-5.0) g/dL Amylase (30-110) U/L Lipase (23-300) U/L Urine Color Yellow Urine Appearance Clear (Clear) Urine pH 5.5 (5.0-8.0) Ur Specific [place] 1.021 (1.001-1.035) Urine Protein Trace H (Negative) Urine Glucose (UA) Negative (Negative) Urine Ketones Negative (Negative) Urine Blood Negative (Negative) Urine Nitrite Negative (Negative) Urine Bilirubin Negative (Negative) Urine Urobilinogen <2.0 (<2.0) mg/dL Ur Leukocyte Esterase Negative (Negative) Coronavirus (PCR) Not Detected (Not Detectd) - Radiology Data Radiology results: report reviewed (Thickening below the gastric esophageal junction, concern for mass. Fat stranding duodenum, correlate for significant peptic ulcer disease. Thickening of the cecum, correlate with lactic acid exclude early ischemic colitis. Diverticulitis not excluded.) Disposition Clinical Impression: Vomiting, Diverticulitis Disposition: ADMITTED IP TO THIS [facility] Condition: Serious Is patient prescribed a controlled substance at d/c from ED?: No Referrals: Harshal Calderón MD [Primary Care Provider] - 1-2 days Decision Time: 16:16
[2020-05-10 13:41] LABS: Calcium 9.6 mg/dL (8.4-10.2); Potassium 4.7 mmol/L (3.5-5.1); Total Bilirubin 0.9 mg/dL (0.2-1.3); Total Protein 5.6 g/dL (6.3-8.2)
[2020-05-10 13:44] LABS: Basophils % (A) 0 %; Eosinophils % (A) 0 %; HCT 33.1 % (34.0-46.0); HGB 10.8 gm/dL (11.4-16.0); Lymphocytes % (A) 8 %; MCH 30.3 pg (25.0-35.0); MCHC 32.6 g/dL (31.0-37.0); Mean Platelet Volume 7.3; Monocytes # (A) 0.4 k/uL (0-1.0); Monocytes % (A) 3 %; Neutrophils # (A) 10.4 k/uL (1.3-7.7); Neutrophils % (A) 87 %; Platelet Count 296 k/uL (150-450); RBC 3.56 m/uL (3.80-5.40); RDW 12.8 % (11.5-15.5)
[2020-05-10 14:06] LABS: INR 0.9 (<1.2); Prothrombin Time 10.2 sec (9.0-12.0)
[2020-05-10 14:10] LABS: Partial Thromboplastin Time 20.7 sec (22.0-30.0)
--- NOTE | 2020-05-10 14:31 | CT ---
EXAMINATION TYPE: CT abdomen pelvis w con DATE OF EXAM: 05/10/2020 COMPARISON: 07/11/2014 HISTORY: 84-year-old female Abdominal pain. TECHNIQUE: Contiguous axial scanning of the abdomen and pelvis following administration of 80 ml Isov ue 300 IV contrast. Delayed images through the kidneys and coronal/sagittal reconstructions performe d. CT DLP: 850.1 mGycm Automated exposure control for dose reduction was used. FINDINGS: Heart normal size with mitral annular calcifications and trace pericardial effusion measuring 3 mm th ick. Some patchy dependent opacities in the lung bases probably atelectasis. Unable to exclude masslike thickening at the GI junction and just below within the upper stomach, for example, refer to axial images 10 through 12. Motion artifacts. Additional artifacts due to patient's arms down by their side. Some focal hypodensity within segment 5 inferior right liver lobe was present back in 2014 as well, p robable focal fat. Portal venous system is patent. Prominent distention of the stomach. There seems to be wall thickening and mucosal hyperemia involvin g the first/second portions of the duodenum, refer to axial images 25 through 30. Some surrounding fa t stranding is noted extending into the portahepatis. Adrenal glands, spleen with anterior inferior splenule, and atrophic pancreas show no gross abnormali ty. Symmetric uptake and excretion of contrast from both kidneys. There is a 2.9 cm upper pole right floyd l cyst. No dilated small bowel, free fluid, or free air. Moderate atherosclerotic calcifications throughout the abdominal aorta and internal iliac arteries. A haustral appearance to the cecum with mild wall thickening, axial image 63. There may be some surro unding mild fat stranding. Mild to moderate stool elsewhere in the colon. There appears to be abnormal wall thickening and diverticular change at the distal sigmoid with assoc iated fat stranding, axial images 62 through 68. Bladder urine distended. Streak and beam hardening artifact from the patient's right hip arthroplasty limits visualization of the pelvic structures. There is some presacral edema but no abnormal fluid c learly identified in the pelvis. Uterus surgically absent. Ovaries not clearly delineated from adjace nt bowel loops. Bones: Degenerative changes left hip and right SI joint. Advanced degenerative disc disease L1-L4 lev els. Mild superior endplate deformity of T12 is unchanged from 2015. Baastrup's disease. Grade 1 retr olisthesis L1-L4 levels unchanged. IMPRESSION: 1. A NUMBER OF FINDINGS WHICH WARRANT FOLLOW-UP AND FURTHER EVALUATION: 2. APPARENT MASSLIKE THICKENING AT AND JUST BELOW THE GE JUNCTION. DIRECT VISUALIZATION TO EXCLUDE NE OPLASM. 3. THICKENING AND HYPEREMIA AND MILD SURROUNDING FAT STRANDING AT THE FIRST AND SECOND PORTIONS OF TH E DUODENUM. CORRELATE TO EXCLUDE SIGNIFICANT UNDERLYING PEPTIC ULCER DISEASE. NO PERFORATION SEEN AT THIS TIME. 4. AHAUSTRAL AND MILDLY THICKENED CECUM. GIVEN THE UNDERLYING ATHEROSCLEROTIC CHANGES, CORRELATE WITH LACTIC ACID LEVELS TO EXCLUDE AN EARLY ISCHEMIC COLITIS. 5. DISTAL SIGMOID DIVERTICULOSIS WITH WALL THICKENING AND ADJACENT FAT STRANDING. MILD ACUTE DIVERTIC ULITIS IS NOT EXCLUDED. NO ABSCESS OR FREE AIR.
[2020-05-10 14:33] LABS: Appearance,Urine Clear (Clear); Bilirubin,Urine Negative (Negative); Blood,Urine Negative (Negative); Color,Urine Yellow; Glucose,Urine (UA) Negative (Negative); Ketones,Urine Negative (Negative); Leukocyte Esterase,Urine Negative (Negative); Nitrite,Urine Negative (Negative); PH, Urine 5.5 (5.0-8.0); Protein,Urine Trace (Negative); Specific Gravity,Urine 1.021 (1.001-1.035); Urobilinogen,Urine <2.0 mg/dL (<2.0)
[2020-05-10] MEDS ORDERED: LEVOFLOXACIN 750MG-D5W PMX 750 MG in DEXTROSE/WATER 1 150ML.BAG IVPB STA (16:17)
[2020-05-10] MEDS ORDERED: ONDANSETRON 4 MG/2 ML VIAL IVP PRN (16:18)
[2020-05-10] MEDS ORDERED: NALOXONE 0.4 MG/ML 1 ML VIAL IV PRN (16:18)
[2020-05-10] MEDS: SODIUM CHLORIDE 0.9% 1,000 ML IV SCH (17:04)
[2020-05-10] MEDS: METOCLOPRAMIDE 5 MG/ML 2 ML VIAL IVP SCH (17:08)
[2020-05-10] MEDS: metroNIDAZOLE-NS PMX 500 MG in SALINE 1 100ML.BAG IVPB SCH (19:26)
[2020-05-10] MEDS: VANCOMYCIN 125 MG CAPSULE PO SCH ×2 (20:20→22:14)
[2020-05-11] MEDS: METOCLOPRAMIDE 5 MG/ML 2 ML VIAL IVP SCH ×5 (00:31→23:35)
[2020-05-11] MEDS: metroNIDAZOLE-NS PMX 500 MG in SALINE 1 100ML.BAG IVPB SCH ×4 (00:32→23:35)
[2020-05-11] MEDS: SODIUM CHLORIDE 0.9% 1,000 ML IV SCH ×2 (05:37→23:35)
--- NOTE | 2020-05-11 05:45 | CONS ---
CONSULTATION DATE OF SERVICE: 05/10/2020 REASON FOR CONSULTATION: Diverticulitis with multiple antibiotic allergies. HISTORY OF PRESENT ILLNESS: The patient is an 84-year-old female recently admitted to this facility for COVID-19 infection and did have a UTI. The patient subsequently was transferred to the [facility] on the [place] where the patient did receive the IgG antibodies. The patient apparently has also developed C difficile colitis at that facility. She is currently being treated with course of oral vancomycin. The patient was discharged from the snf about 2 days ago and is now presented back to the hospital with chief complaints of abdominal pain. Patient described the pain to the lower abdominal area as more of a dull aching to sharp without any radiation. The patient denies any further diarrhea. The patient is constipated. Complaining of some nausea but no vomiting. Denies having any chest pain or shortness of breath or cough. With these symptoms, the patient was evaluated by the ER physician. On arrival to the ER, the patient did have a low-grade fever of 99.7. The patient did have white count of 12,000 with a left shift. Kidney function was normal. Sanchez PCR was negative. Urine was negative. The patient did have a CT of abdomen and pelvis which did show evidence of with some below the GE junction and evidence of diverticulitis. The patient has been admitted to the hospital. Currently being treated with Levaquin, Flagyl and oral vancomycin. Infectious Disease was consulted for further management of antibiotic therapy. REVIEW OF SYSTEMS: Positive points have been mentioned in HPI. Rest of the systems negative. PAST MEDICAL HISTORY: Diabetes mellitus, hypertension, hyperlipidemia, hypothyroidism, rheumatoid arthritis, CVA, TIA, C difficile colitis and COVID-19 infection. PAST SURGICAL HISTORY: Appendectomy, cholecystectomy, hysterectomy, right hip replacement. SOCIAL HISTORY: No history of smoking, drinking or drug use. FAMILY HISTORY: Brother with history of CVA, TIA and hypertension. Mother history of congestive heart failure. ALLERGIES: To MULTIPLE MEDICATIONS, including to CODEINE, PENICILLIN. MEDICATIONS: The patient is currently on Reglan, Flagyl, Narcan, Protonix, vancomycin and received a dose of Levaquin. PHYSICAL EXAMINATION: VITAL SIGNS: Blood pressure 135/56, pulse of 69, temperature 98.5, she is 96% on room air. GENERAL DESCRIPTION: Patient is an elderly female lying in bed in no distress. HEENT: Examination shows slight pallor. No scleral icterus. Oral mucous membrane is dry no pharyngeal erythema or thrush. NECK: Trachea central, no thyromegaly. LUNGS: Unlabored breathing, clear to auscultation anteriorly. No wheeze or crackle. HEART: S1, S2. Regular rate and rhythm. ABDOMEN: Soft, mildly tender. No guarding or rigidity. EXTREMITIES: No edema of the feet. SKIN: No rash or mass palpable. NEUROLOGICAL: Patient is awake, alert, oriented times three. Mood and affect normal. LABS: Hemoglobin is 10.1, white count 12,000. BUN of 37, creatinine 0.94. Urine is negative. Sanchez PCR was negative. CT report as mentioned above. DIAGNOSTIC IMPRESSION AND PLAN: 1. Patient admitted to the hospital with abdominal pain. No diarrhea at this point. She did have a low-grade fever, elevated white count with CT evidence of diverticulitis and will need to cover for the enteric gram-negative pathogen, both aerobes and anaerobes. 2. Patient with recent C difficile colitis. However, the patient denies having any diarrhea. 3. The patient with multiple antibiotics safe to use. PLAN: 1. The patient will be started on Rocephin 1 g daily and continue with Flagyl. 2. Continue with oral vancomycin, tapering course, finishing therapy for C difficile colitis. 3. She is encouraged with probiotic and yogurt intake to decrease risk of recurrent C difficile colitis. 4. We will follow up on clinical condition and further adjust medication if needed. Thank you for this consultation. Will follow this patient along with you. MMODL / IJN: [id number] /
[2020-05-11 07:06] LABS: Glucose,Whole Blood 112 mg/dL (75-99)
[2020-05-11] MEDS ORDERED: PANTOPRAZOLE 40 MG/10 ML VIAL IV SCH (09:00)
[2020-05-11] MEDS: PANTOPRAZOLE 40 MG/10 ML VIAL IV SCH ×2 (09:51→20:57)
[2020-05-11] MEDS: VANCOMYCIN 125 MG CAPSULE PO SCH ×4 (10:02→20:58)
[2020-05-11 11:26] LABS: Glucose,Whole Blood 116 mg/dL (75-99)
--- NOTE | 2020-05-11 11:49 | P.HPIM ---
History of Present Illness H&P Date: 05/11/20 HISTORY OF PRESENT ILLNESS This is an 84-year-old female patient of Dr. Calderón with past medical history of hospitalization at [facility] because of gastrointestinal bleeding. She underwent EGD and underwent cauterization of her duodenal bulb ulcer, history of previous CVA with right-sided weakness, history of hypothyroidism, degenerative joint disease, rheumatoid arthritis. History of C. difficile colitis in 2015. He had a recent hospitalization April 19 through April 21 which time she presented with Covid 19 illness. Patient has been seen by Dr. Vasquez with recommendations for outpatient treatment with Bamlanivimab and patient was discharged to [facility] and obtained her treatment as planned. Patient was discharged from [facility] 2 days ago. Prior to be in discharge, patient was diagnosed with C. difficile colitis and was started on vancomycin and continued after discharge. Patient states that she is having one bowel movement every day and now it is hard stools. She denies any nausea at this time. No fever. No choking episodes. She states she vomited once yesterday with dark red liquid. She complains of gas. She has generalized abdominal pain. Patient presented to [facility] emergency center for evaluation with concern for nausea and vomiting. She was found to be afebrile, heart rate 94, blood pressure 150/70, pulse ox 98% on room air. WBC 12, hemoglobin 10.8, platelet count 296. Electrolytes normal. BUN 37 creatinine 0.94. Blood sugar 176. ALT 55. Lipase 379. Urinalysis negative for infection. Coronavirus not detected. CAT scan of the abdomen and pelvis revealed masslike thickening at t he GE junction. Recommend direct visualization to exclude neoplasm. Thickening and hyperemia and mild surrounding fat stranding at the first and second portions of the duodenum. Correlate for peptic ulcer disease. No perforation is seen. Ahaustral and a mildly thickened cecum correlate to exclude ischemic colitis. Distal sigmoid diverticulosis with wall thickening and adjacent fat stranding. Mild acute diverticulitis is not excluded. No abscess or free air. Patient has been admitted to the [facility] floor, consult requested with general surgery and infectious disease. Patient was seen by Dr. Vasquez with recommendations for Rocephin 1 g daily and Flagyl. Continue oral vancomycin with tapering dose, encouraged probiotic. REVIEW OF SYSTEMS Constitutional: No fever, no chills, no night sweats. No weight change. Reports weakness, reports fatigue, reports lethargy. No daytime sleepiness. EENT: No headache. No blurred vision or double vision, no loss of vision. No loss of Hearing, no ringing in the ears, no dizziness. No nasal drainage or congestion. No epistaxis. No sore throat. Lungs: No shortness of breath, cough, no sputum production. No wheezing. Cardiovascular: No chest pain, no lower extremity edema. No palpitations. No paroxysmal nocturnal dyspnea. No orthopnea. Reports lightheadedness or dizziness. No syncopal episodes. Abdominal: No abdominal pain. Reported nausea, reported vomiting. No diarrhea. No constipation. No bloody or tarry stools reported loss of appetite. Genitourinary: No dysuria, increased frequency, urgency. No urinary retention. Musculoskeletal: No myalgias. No muscle weakness, no gait dysfunction, no frequent falls. No back pain. No neck pain. Integumentary: No wounds, no lesions. No rash or pruritus. No unusual bruising. No change in hair or nails. Neurologic: No aphasia. No facial droop. No change in mentation. No head injury. No headache. No paralysis. No paresthesia. Psychiatric: No depression. No anxiety. No mood swings. Endocrine: No abnormal blood sugars. No weight change. No excessive sweating or thirst. No cold intolerance. SOCIAL HISTORY Patient is a lifelong nonsmoker, no marijuana, street drug use or alcohol use. Patient is and lives independently with help from her family members. She does not work outside the home. No international travel. No service. She does use a cane and she has a CPAP. FAMILY HISTORY Father from alcoholic cirrhosis and had history of hypertension. Mother from congestive heart failure. Patient has one brother with history of stroke and hypertension. Patient's 2 sisters and one this past from Alzheimer's disease and one from brain aneurysm. Patient has 6 children. 4 daughters and 2 sons with strong history of hypertension. PHYSICAL EXAMINATION Gen: This is an 84-year-old female. Patient is resting in bed and appears to be comfortable and in no acute distress. HEENT: Head is atraumatic, normocephalic. Pupils equal, round. Sclerae is anicteric. NECK: Supple. No JVD. No lymphadenopathy. No thyromegaly. LUNGS: Clear to auscultation. No wheezes or rhonchi. No intercostal retractions. HEART: Regular rate and rhythm. No murmur. ABDOMEN: Soft. Bowel sounds are present. No masses. No tenderness. EXTREMITIES: No pedal edema. No calf tenderness. NEUROLOGICAL: Patient is awake, alert and oriented x3. Cranial nerves 2 through 12 are grossly intact. ASSESSMENT AND PLAN 1. C. difficile colitis. Consult with Dr. Vasquez. Continue vancomycin on tapering dose. Probiotic and yogurt daily. 2. Diverticulitis. Continue Rocephin 1 g IV piggyback daily and Flagyl 500 mg 3 times daily. 3. Recent diagnosis of COVID19 infection, resolved and completed treatment with Bamlanivimab at [facility]. 4. History of GI bleed, stable. 3. History of CVA with right-sided weakness, stable. Continue statin for secondary prevention. 4. Hypothyroidism. Continue levothyroxine 75 g daily. 5. Hyperlipidemia. Continue statin, Zetia. 6. Diabetes mellitus type 2 insulin requiring. Continue Levemir 12 units daily at lunch, NovoLog scale before meals and at bedtime. 7. Hypertension. Continue lisinopril 20 mg daily, amlodipine 5 mg daily. 8. History of angina. Continue Imdur 60 mg daily, pravastatin. 9. GI prophylaxis. Protonix 40 mg IV twice daily. 10. DVT prophylaxis. Heparin subcu. Patient will be admitted to the hospital for a minimum of 1 night stay with plan to discharge to outpatient setting for appropriate treatment. DISCHARGE PLAN [facility]. Impression and plan of care have been directed as dictated by the signing physician. Kelsea Benitez nurse practitioner acting as scribe for signing physician. Past Medical History Past Medical History: CVA/TIA, Diabetes Mellitus, GI Bleed, Hyperlipidemia, Hypertension, Rheumatoid Arthritis (RA), Sleep Apnea/CPAP/BIPAP, Thyroid Disorder Additional Past Medical History / Comment(s): arthritis, murmur, cataracts, obstructive sleep apnea on CPAP. History of Any Multi-Drug Resistant Organisms: C-DIFF Date of last positivie culture/infection: 2 weeks ago MDRO Source:: stool Past Surgical History: Appendectomy, Cholecystectomy, Hysterectomy, Joint Replacement Additional Past Surgical History / Comment(s): mouth tumor benign, rt arm bone tumor- benign, rt breast biopsy - benign, kidney biopsy for function- no problems, liver biopsy, right partial mastectomy, Rt hip replaced, ulcer caterization to address GI bleed. Past Anesthesia/Blood Transfusion Reactions: Previous Problems w/ Anesthesia Additional Past Anesthesia/Blood Transfusion Reaction / Comment(s): hard to wake up Past Psychological History: No Psychological Hx Reported Additional Psychological History / Comment(s): .Lives independently with the help of her multiple family members including her daughters. Transporter as needed. She is a lifelong nonsmoker with no marijuana, street drug use or alcohol abuse. Does not work outside of the home. No international travel. No experience. She does use a cane for ambulation and has a CPAP. No animal exposures. Smoking Status: Never smoker Past Alcohol Use History: None Reported Past Drug Use History: None Reported - Past Family History Brother(s) Family Medical History: CVA/TIA, Hypertension Additional Family Medical History / Comment(s): She has one brother with history of stroke and hypertension. Sister(s) Additional Family Medical History / Comment(s): She has 2 sisters and both have passed 1 from Alzheimer's dementia and one from brain aneurysm. Daughter(s) Additional Family Medical History / Comment(s): She has 6 children, 4 girls and 2 boys with strong history of hypertension. Mother Family Medical History: Congestive Heart Failure (CHF) Father Family Medical History: Deep Vein Thrombosis (DVT), Liver Disease Additional Family Medical History / Comment(s): Father from alcoholic cirrhosis and had history of hypertension. Medications and Allergies Home Medications Medication Instructions Recorded Confirmed Type Calcium Carbonate/Vitamin D3 1 tab PO AC-SUPPER 01/13/14 05/10/20 History [Calcium 500-Vit D3 400 Tablet] Cranberry Conc/C/Bacill Coag 1 tab PO AC-LUNCH 01/13/14 05/10/20 History [Cranberry Tablet] Insulin Glargine,Hum.rec.anlog 12 units SQ AC-LUNCH 08/03/15 05/10/20 History [Lantus Solostar] amLODIPine [Norvasc] 5 mg PO HS 08/03/15 05/10/20 History Ezetimibe [Zetia] 10 mg PO AC-LUNCH 03/13/16 05/10/20 History L.acidoph,Paracasei, B.lactis 1 cap PO PC-BRKFST 03/13/16 05/10/20 History [Probiotic] Multivit-Min/FA/Lycopen/Lutein 1 tab PO AC-LUNCH 03/13/16 05/10/20 History [Centrum Silver Tablet] Pravastatin Sodium [Pravachol] 80 mg PO AC-SUPPER 03/13/16 05/10/20 History Cholecalciferol [Vitamin D3 (25 50 mcg PO HS 04/19/20 05/10/20 History Mcg = 1000 Iu)] Isosorbide Mononitrate ER [Imdur] 60 mg PO PC-BRKFST 04/19/20 05/10/20 History Levothyroxine Sodium [Synthroid] 75 mcg PO AC-BRKFST 04/19/20 05/10/20 History Aspirin EC [Ecotrin Low Dose] 81 mg PO PC-BRKFST 05/10/20 05/10/20 History Cholestyramine (with Sugar) 4 gm PO PC-BID 05/10/20 05/10/20 History [Cholestyramine Packet] Niacin 500 mg PO AC-SUPPER 05/10/20 05/10/20 History Vancomycin HCl [Vancocin HCl] See Taper PO DIRECTED 05/10/20 05/10/20 History lisinopriL [Zestril] 20 mg PO PC-BRKFST 05/10/20 05/10/20 History Allergies Allergy/AdvReac Type Severity Reaction Status Date / Time allantoin [From Orajel] Allergy Swelling Verified 05/10/20 13:26 benzalkonium chloride Allergy Swelling Verified 05/10/20 13:26 [From Orajel] benzocaine [From Orajel] Allergy Swelling Verified 05/10/20 13:26 carbamide peroxide Allergy Swelling Verified 05/10/20 13:26 [From Orajel] codeine Allergy Nausea & Verified 05/10/20 13:26 Vomiting dipyridamole Allergy Unknown Verified 05/10/20 13:26 [From Persantine] enalapril maleate Allergy Swelling Verified 05/10/20 13:26 [From Vasotec] enalaprilat dihydrate Allergy Swelling Verified 05/10/20 13:26 [From Vasotec] furosemide [From Lasix] Allergy Unknown Verified 05/10/20 13:26 glimepiride [From Amaryl] Allergy Unknown Verified 05/10/20 13:26 hydralazine Allergy Unknown Verified 05/10/20 13:26 methotrexate Allergy Swelling Verified 05/10/20 13:26 naproxen [From Naprosyn] Allergy Unknown Verified 05/10/20 13:26 Penicillins Allergy Unknown Verified 05/10/20 13:26 Sulfa (Sulfonamide Allergy Swelling Verified 05/10/20 13:26 Antibiotics) zinc chloride [From Orajel] Allergy Swelling Verified 05/10/20 13:26 acetaminophen [From Ultracet] AdvReac Nausea & Verified 05/10/20 13:26 Vomiting diazepam [From Valium] AdvReac Confusion Verified 05/10/20 13:26 pentazocine lactate AdvReac Hallucinati Verified 05/10/20 13:26 [From Talwin] ons propoxyphene HCl AdvReac Hallucinati Verified 05/10/20 13:26 [From Darvon] ons tramadol HCl [From Ultracet] AdvReac Nausea & Verified 05/10/20 13:26 Vomiting CIPROCINONIDE Allergy Unknown Uncoded 05/10/20 13:26 Physical Exam Vitals: Vital Signs Temp Pulse Pulse Resp BP BP Pulse Ox 05/11/20 08:00 98.2 F 81 16 129/64 97 05/11/20 01:05 98.2 F 79 13 112/69 94 L 05/10/20 23:00 98.5 F 79 15 135/56 96 05/10/20 20:21 85 16 144/62 98 05/10/20 19:21 98.7 F 84 18 137/67 98 05/10/20 16:50 87 16 143/60 98 05/10/20 15:56 88 16 142/60 98 05/10/20 14:05 94 16 146/58 98 05/10/20 12:31 99.7 F H 94 18 150/70 98 Intake and Output 05/10/20 05/11/20 05/11/20 22:59 06:59 14:59 Other: # Voids 1 Weight 57.153 kg Results CBC & Chem 7: 05/10/20 13:20 05/10/20 13:20 Labs: Abnormal Lab Results - Last 24 Hours (Table) 03/06/2705/10/20 05/10/20 Range/Units 13:20 13:20 13:20 WBC 12.0 H (3.8-10.6) k/uL RBC 3.56 L (3.80-5.40) m/uL Hgb 10.8 L (11.4-16.0) gm/dL Hct 33.1 L (34.0-46.0) % Neutrophils # 10.4 H (1.3-7.7) k/uL APTT 20.7 L (22.0-30.0) sec BUN 37 H (7-17) mg/dL Glucose 176 H (74-99) mg/dL POC Glucose (mg/dL) (75-99) mg/dL ALT 55 H (4-34) U/L Total Protein 5.6 L (6.3-8.2) g/dL Albumin 3.0 L (3.5-5.0) g/dL Lipase 379 H (23-300) U/L Urine Protein (Negative) 05/10/20 05/11/20 Range/Units 14:25 06:44 WBC (3.8-10.6) k/uL RBC (3.80-5.40) m/uL Hgb (11.4-16.0) gm/dL Hct (34.0-46.0) % Neutrophils # (1.3-7.7) k/uL APTT (22.0-30.0) sec BUN (7-17) mg/dL Glucose (74-99) mg/dL POC Glucose (mg/dL) 112 H (75-99) mg/dL ALT (4-34) U/L Total Protein (6.3-8.2) g/dL Albumin (3.5-5.0) g/dL Lipase (23-300) U/L Urine Protein Trace H (Negative) Thrombosis Risk Factor Assmnt - Choose All That Apply Any of the Below Risk Factors Present?: Yes Each Risk Factor Represents 3 Points: Age 75 years or older, Family history of DVT/PE Other congenital or acquired thrombophilia - If yes, enter type in comment: No Thrombosis Risk Factor Assessment Total Risk Factor Score: 6 Thrombosis Risk Factor Assessment Level: High Risk
--- NOTE | 2020-05-11 12:08 | P.GSCN ---
History of Present Illness Consult date: 05/11/20 History of present illness: 84-year-old female presented to the emergency department with complaints of nausea and vomiting and generalized abdominal pain. She is noted to have a recent hospitalization secondary to Covid 19 a few weeks ago. She also was noted to have a history of hospitalization secondary to GI bleed. Her last recorded upper endoscopy in [place] was at [facility] in June 2018 with no acute findings. She does also have a history of previous CVA with right-sided weakness. The patient states that she vomited yesterday that was a dark red consistency. Currently, she denies any nausea or vomiting episodes. She denies any difficulty with tolerating oral intake, solids or liquids. She continues to have generalized abdominal pain, mostly in bilateral lower quadrants. She did have a CT of the abdomen and pelvis performed that was concerning for a possibility of mass at the GE junction. There is also concern for diverticulitis. Patient has been started on IV antibiotics for diverticulitis. She denies any fevers, chills, chest pain or shortness of breath. Review of Systems All systems: negative Past Medical History Past Medical History: CVA/TIA, Diabetes Mellitus, GI Bleed, Hyperlipidemia, Hypertension, Rheumatoid Arthritis (RA), Sleep Apnea/CPAP/BIPAP, Thyroid Disorder Additional Past Medical History / Comment(s): arthritis, murmur, cataracts, obstructive sleep apnea on CPAP. History of Any Multi-Drug Resistant Organisms: C-DIFF Year Discovered:: 2 weeks ago MDRO Source:: stool Past Surgical History: Appendectomy, Cholecystectomy, Hysterectomy, Joint Replacement Additional Past Surgical History / Comment(s): mouth tumor benign, rt arm bone tumor- benign, rt breast biopsy - benign, kidney biopsy for function- no problems, liver biopsy, right partial mastectomy, Rt hip replaced, ulcer caterization to address GI bleed. Past Anesthesia/Blood Transfusion Reactions: Previous Problems w/ Anesthesia Additional Past Anesthesia/Blood Transfusion Reaction / Comm: hard to wake up Past Psychological History: No Psychological Hx Reported Additional Psychological History / Comment(s): .Lives independently with the help of her multiple family members including her daughters. Transporter as needed. She is a lifelong nonsmoker with no marijuana, street drug use or alcohol abuse. Does not work outside of the home. No international travel. No experience. She does use a cane for ambulation and has a CPAP. No animal exposures. Smoking Status: Never smoker Past Alcohol Use History: None Reported Past Drug Use History: None Reported - Past Family History Brother(s) Family Medical History: CVA/TIA, Hypertension Additional Family Medical History / Comment(s): She has one brother with history of stroke and hypertension. Sister(s) Additional Family Medical History / Comment(s): She has 2 sisters and both have passed 1 from Alzheimer's dementia and one from brain aneurysm. Daughter(s) Additional Family Medical History / Comment(s): She has 6 children, 4 girls and 2 boys with strong history of hypertension. Mother Family Medical History: Congestive Heart Failure (CHF) Father Family Medical History: Deep Vein Thrombosis (DVT), Liver Disease Additional Family Medical History / Comment(s): Father from alcoholic cirrhosis and had history of hypertension. Medications and Allergies Home Medications Medication Instructions Recorded Confirmed Type Calcium Carbonate/Vitamin D3 1 tab PO AC-SUPPER 01/13/14 05/10/20 History [Calcium 500-Vit D3 400 Tablet] Cranberry Conc/C/Bacill Coag 1 tab PO AC-LUNCH 01/13/14 05/10/20 History [Cranberry Tablet] Insulin Glargine,Hum.rec.anlog 12 units SQ AC-LUNCH 08/03/15 05/10/20 History [Lantus Solostar] amLODIPine [Norvasc] 5 mg PO 08/03/15 05/10/20 History Ezetimibe [Zetia] 10 mg PO AC-LUNCH 03/13/16 05/10/20 History L.acidoph,Paracasei, B.lactis 1 cap PO PC-BRKFST 03/13/16 05/10/20 History [Probiotic] Multivit-Min/FA/Lycopen/Lutein 1 tab PO AC-LUNCH 03/13/16 05/10/20 History [Centrum Silver Tablet] Pravastatin Sodium [Pravachol] 80 mg PO AC-SUPPER 03/13/16 05/10/20 History Cholecalciferol [Vitamin D3 (25 50 mcg PO HS 04/19/20 05/10/20 History Mcg = 1000 Iu)] Isosorbide Mononitrate ER [Imdur] 60 mg PO PC-BRKFST 04/19/20 05/10/20 History Levothyroxine Sodium [Synthroid] 75 mcg PO AC-BRKFST 04/19/20 05/10/20 History Aspirin EC [Ecotrin Low Dose] 81 mg PO PC-BRKFST 05/10/20 05/10/20 History Cholestyramine (with Sugar) 4 gm PO PC-BID 05/10/20 05/10/20 History [Cholestyramine Packet] Niacin 500 mg PO AC-SUPPER 05/10/20 05/10/20 History Vancomycin HCl [Vancocin HCl] See Taper PO DIRECTED 05/10/20 05/10/20 History lisinopriL [Zestril] 20 mg PO PC-BRKFST 05/10/20 05/10/20 History Allergies Allergy/AdvReac Type Severity Reaction Status Date / Time allantoin [From Orajel] Allergy Swelling Verified 05/10/20 13:26 benzalkonium chloride Allergy Swelling Verified 05/10/20 13:26 [From Orajel] benzocaine [From Orajel] Allergy Swelling Verified 05/10/20 13:26 carbamide peroxide Allergy Swelling Verified 05/10/20 13:26 [From Orajel] codeine Allergy Nausea & Verified 05/10/20 13:26 Vomiting dipyridamole Allergy Unknown Verified 05/10/20 13:26 [From Persantine] enalapril maleate Allergy Swelling Verified 05/10/20 13:26 [From Vasotec] enalaprilat dihydrate Allergy Swelling Verified 05/10/20 13:26 [From Vasotec] furosemide [From Lasix] Allergy Unknown Verified 05/10/20 13:26 glimepiride [From Amaryl] Allergy Unknown Verified 05/10/20 13:26 hydralazine Allergy Unknown Verified 05/10/20 13:26 methotrexate Allergy Swelling Verified 05/10/20 13:26 naproxen [From Naprosyn] Allergy Unknown Verified 05/10/20 13:26 Penicillins Allergy Unknown Verified 05/10/20 13:26 Sulfa (Sulfonamide Allergy Swelling Verified 05/10/20 13:26 Antibiotics) zinc chloride [From Orajel] Allergy Swelling Verified 05/10/20 13:26 acetaminophen [From Ultracet] AdvReac Nausea & Verified 05/10/20 13:26 Vomiting diazepam [From Valium] AdvReac Confusion Verified 05/10/20 13:26 pentazocine lactate AdvReac Hallucinati Verified 05/10/20 13:26 [From Talwin] ons propoxyphene HCl AdvReac Hallucinati Verified 05/10/20 13:26 [From Darvon] ons tramadol HCl [From Ultracet] AdvReac Nausea & Verified 05/10/20 13:26 Vomiting CIPROCINONIDE Allergy Unknown Uncoded 05/10/20 13:26 Surgical - Exam Osteopathic Statement: *. No significant issues noted on an osteopathic structural exam other than those noted in the History and Physical/Consult. Vital Signs Temp Pulse Resp BP Pulse Ox 99.7 F H 94 18 150/70 98 05/10/20 12:31 05/10/20 12:31 05/10/20 12:31 05/10/20 12:31 05/10/20 12:31 - General well nourished, no distress - Eyes PERRL - ENT no hearing loss - Respiratory normal respiratory effort - Abdomen Soft, generalized tenderness to palpation mostly in the lower quadrants, nondistended, no rebound, no guarding - Psychiatric oriented to time, oriented to person, oriented to place Results - Labs 05/10/20 13:20 05/10/20 13:20 Abnormal Lab Results - Last 24 Hours (Table) 05/10/20 05/10/20 05/10/20 Range/Units 13:20 13:20 13:20 WBC 12.0 H (3.8-10.6) k/uL RBC 3.56 L (3.80-5.40) m/uL Hgb 10.8 L (11.4-16.0) gm/dL Hct 33.1 L (34.0-46.0) % Neutrophils # 10.4 H (1.3-7.7) k/uL APTT 20.7 L (22.0-30.0) sec BUN 37 H (7-17) mg/dL Glucose 176 H (74-99) mg/dL POC Glucose (mg/dL) (75-99) mg/dL ALT 55 H (4-34) U/L Total Protein 5.6 L (6.3-8.2) g/dL Albumin 3.0 L (3.5-5.0) g/dL Lipase 379 H (23-300) U/L Urine Protein (Negative) 05/10/20 05/11/20 05/11/20 Range/Units 14:25 06:44 11:25 WBC (3.8-10.6) k/uL RBC (3.80-5.40) m/uL Hgb (11.4-16.0) gm/dL Hct (34.0-46.0) % Neutrophils # (1.3-7.7) k/uL APTT (22.0-30.0) sec BUN (7-17) mg/dL Glucose (74-99) mg/dL POC Glucose (mg/dL) 112 H 116 H (75-99) mg/dL ALT (4-34) U/L Total Protein (6.3-8.2) g/dL Albumin (3.5-5.0) g/dL Lipase (23-300) U/L Urine Protein Trace H (Negative) Diabetes panel 05/10/20 Range/Units 13:20 Sodium 139 (137-145) mmol/L Potassium 4.7 (3.5-5.1) mmol/L Chloride 102 (98-107) mmol/L Carbon Dioxide 30 (22-30) mmol/L BUN 37 H (7-17) mg/dL Creatinine 0.94 (0.52-1.04) mg/dL Glucose 176 H (74-99) mg/dL Calcium 9.6 (8.4-10.2) mg/dL AST 21 (14-36) U/L ALT 55 H (4-34) U/L Alkaline Phosphatase 117 (38-126) U/L Total Protein 5.6 L (6.3-8.2) g/dL Albumin 3.0 L (3.5-5.0) g/dL Calcium panel 05/10/20 Range/Units 13:20 Calcium 9.6 (8.4-10.2) mg/dL Albumin 3.0 L (3.5-5.0) g/dL Pituitary panel 05/10/20 Range/Units 13:20 Sodium 139 (137-145) mmol/L Potassium 4.7 (3.5-5.1) mmol/L Chloride 102 (98-107) mmol/L Carbon Dioxide 30 (22-30) mmol/L BUN 37 H (7-17) mg/dL Creatinine 0.94 (0.52-1.04) mg/dL Glucose 176 H (74-99) mg/dL Calcium 9.6 (8.4-10.2) mg/dL Adrenal panel 05/10/20 Range/Units 13:20 Sodium 139 (137-145) mmol/L Potassium 4.7 (3.5-5.1) mmol/L Chloride 102 (98-107) mmol/L Carbon Dioxide 30 (22-30) mmol/L BUN 37 H (7-17) mg/dL Creatinine 0.94 (0.52-1.04) mg/dL Glucose 176 H (74-99) mg/dL Calcium 9.6 (8.4-10.2) mg/dL Total Bilirubin 0.9 (0.2-1.3) mg/dL AST 21 (14-36) U/L ALT 55 H (4-34) U/L Alkaline Phosphatase 117 (38-126) U/L Total Protein 5.6 L (6.3-8.2) g/dL Albumin 3.0 L (3.5-5.0) g/dL Assessment and Plan Plan: 84-year-old female with generalized abdominal pain. Based on CT findings, there is concern for diverticulitis. I do recommend continuing IV antibiotics at this time. The patient does have a, located medical history when he comes to upper GI bleed. She has had past admission secondary to bleeding duodenal bulb ulcer. CT of the abdomen and pelvis did reveal thickening of the first and second portion of the duodenum that could represent recurrent ulcer or chronic ulcer. Based on the patient's emesis episode that was dark red in color, we will need to rule out any GI bleed. The CT of the abdomen and pelvis also was concerning for a masslike thickening of the GE junction. Last upper endoscopy was performed approximately 2 years ago at [facility] by Dr. Richardson. Based on the upper GI findings, we will place a gastroenterology consultation for evaluation for endoscopy. We will continue to follow and provide surgical recommendations based on the patient's clinical progress.
[2020-05-11] MEDS: INSULIN ASPART (NovoLOG) 100 UNIT/ML VIAL SQ SCH ×3 (13:29→20:57)
[2020-05-11] MEDS: INSULIN DETEMIR (LEVEMIR) 100 UNIT/ML SYR SQ SCH (13:35)
[2020-05-11 15:04] VITALS: BMI 22.3
[2020-05-11] MEDS: EZETIMIBE 10 MG TAB PO SCH (15:52)
[2020-05-11] MEDS: PRAVASTATIN SODIUM 80 MG TAB PO SCH (16:05)
[2020-05-11 16:27] LABS: Glucose,Whole Blood 69 mg/dL (75-99)
[2020-05-11 16:47] LABS: Glucose,Whole Blood 75 mg/dL (75-99)
--- NOTE | 2020-05-11 17:31 | PN ---
PROGRESS NOTE DATE OF SERVICE: 05/11/2020 REASON FOR FOLLOWUP: Diverticulitis and C difficile colitis. INTERVAL HISTORY: The patient is currently afebrile. The patient is breathing comfortably. The patient's abdominal pain is slightly decreased in intensity. No nausea, no vomiting. Did have 2 BMs today, not sure if it was loose or not. PHYSICAL EXAMINATION: Blood pressure 160/65, pulse 83, temperature 98.3, she is 97% on room air. General description is an elderly female lying in bed in no distress. Respiratory system: Unlabored breathing, clear to auscultation anteriorly. Heart S1, S2. Regular rate and rhythm. ABDOMEN: Soft, no tenderness. EXTREMITIES: No edema of the feet. LABS: No new labs have been obtained today. DIAGNOSTIC IMPRESSION AND PLAN: Patient admitted to the hospital with abdominal pain in this patient who did have evidence of diverticulitis on the CT. Apparently the patient recently did have a problem with C difficile colitis. The patient is currently covered with Levaquin and Flagyl because of multiple antibiotic allergies. To continue. Will monitor clinical course closely. Family at the bedside and questions were answered. MMODL / IJN: [id number] /
[2020-05-11 20:47] LABS: Glucose,Whole Blood 150 mg/dL (75-99)
[2020-05-11] MEDS: amLODIPine 5 MG TAB PO SCH (20:57)
[2020-05-11] MEDS ORDERED: HEPARIN SODIUM,PORCINE 5,000 UNIT/ML 1 ML VIAL SQ SCH (21:00)
[2020-05-12] MEDS: METOCLOPRAMIDE 5 MG/ML 2 ML VIAL IVP SCH ×3 (05:09→16:54)
[2020-05-12 06:36] LABS: Glucose,Whole Blood 75 mg/dL (75-99)
[2020-05-12] MEDS: INSULIN ASPART (NovoLOG) 100 UNIT/ML VIAL SQ SCH ×4 (07:09→21:40)
[2020-05-12] MEDS: LACTOBACILLUS ACIDOPH & BULGAR 1 EACH PACKET PO SCH (07:59)
[2020-05-12] MEDS: LEVOTHYROXINE 75 MCG TAB PO SCH (08:00)
[2020-05-12] MEDS: ASPIRIN 81 MG PO SCH ×2 (08:00→08:10)
[2020-05-12] MEDS: ISOSORBIDE MONONITRATE ER 60 MG TAB.ER.24H PO SCH (08:00)
[2020-05-12] MEDS: lisinopriL 20 MG TAB PO SCH (08:00)
[2020-05-12] MEDS: SODIUM CHLORIDE 0.9% 1,000 ML IV SCH ×2 (08:01→21:11)
[2020-05-12] MEDS: VANCOMYCIN 125 MG CAPSULE PO SCH ×4 (08:01→21:10)
[2020-05-12] MEDS: metroNIDAZOLE-NS PMX 500 MG in SALINE 1 100ML.BAG IVPB SCH ×2 (08:01→15:14)
[2020-05-12] MEDS: PANTOPRAZOLE 40 MG/10 ML VIAL IV SCH ×2 (08:01→21:10)
--- NOTE | 2020-05-12 08:17 | P.CONS ---
History of Present Illness - Reason for Consult Consult date: 05/11/20 Abnormal computed tomography scan abdomen Requesting physician: Gonzalo Groves - Chief Complaint Nausea and vomiting - History of Present Illness 84-year-old female with a medical history significant for hypertension, hyperlipidemia, obstructive sleep apnea, diabetes mellitus, prior CVA and history of GI bleed as well as a recent hospitalization for infection with Covid 19 and infection with clostridium differential still colitis who presented to the hospital due to concerns of symptoms of nausea and vomiting. Reports are of dark colored vomitus and possible blood in the vomitus. No further vomiting since presentation. She reports generalized abdominal pain. The patient had a computed tomography scan performed in evaluation with multiple findings including masslike thickening at the level and below the GE junction, thickening and hyperemia as well as fat stranding in the first and second portion of the duodenum and ahaustral/mildly thickened cecum with distal sigmoid diverticulosis and wall thickening suggestive of mild acute diverticulitis. Previously she has had an EGD in 02/2015 at which time 1.5 cm duodenal ulcer with active bleeding was noted. Patient is currently receiving antibiotic therapy on the medical floor. Review of Systems REVIEW OF SYSTEMS: CONSTITUTIONAL: Denies any fevers, chills, weight change or fatigue. CARDIOVASCULAR: Denies any chest pain, palpitations high or low blood pressures RESPIRATORY: Denies any shortness of breath, hemoptysis or cough. GENITOURINARY: No dysuria or hematuria. MUSCULOSKELETAL: No weakness reported. SKIN: Denies any new rashes or lesions, jaundice or pallor. PSYCHIATRIC: Denies any depression or anxiety. NEUROLOGY: Denies headache, denies any new focal deficits. EARS/NOSE/THROAT: No recent hearing change, congestion, nasal discharge or sore throat. EYES: No pain in eyes, discharge or change in vision. GASTROINTESTINAL: As per HPI. Past Medical History Past Medical History: CVA/TIA, Diabetes Mellitus, GI Bleed, Hyperlipidemia, Hypertension, Rheumatoid Arthritis (RA), Sleep Apnea/CPAP/BIPAP, Thyroid Disorder Additional Past Medical History / Comment(s): arthritis, murmur, cataracts, obstructive sleep apnea on CPAP. History of Any Multi-Drug Resistant Organisms: C-DIFF Year Discovered:: 2 weeks ago MDRO Source:: stool Past Surgical History: Appendectomy, Cholecystectomy, Hysterectomy, Joint Replacement Additional Past Surgical History / Comment(s): mouth tumor benign, rt arm bone tumor- benign, rt breast biopsy - benign, kidney biopsy for function- no problems, liver biopsy, right partial mastectomy, Rt hip replaced, ulcer caterization to address GI bleed. Past Anesthesia/Blood Transfusion Reactions: Previous Problems w/ Anesthesia Additional Past Anesthesia/Blood Transfusion Reaction / Comm: hard to wake up Past Psychological History: No Psychological Hx Reported Additional Psychological History / Comment(s): .Lives independently with the help of her multiple family members including her daughters. Transporter as needed. She is a lifelong nonsmoker with no marijuana, street drug use or alcohol abuse. Does not work outside of the home. No international travel. No experience. She does use a cane for ambulation and has a CPAP. No animal exposures. Smoking Status: Never smoker Past Alcohol Use History: None Reported Past Drug Use History: None Reported - Past Family History Brother(s) Family Medical History: CVA/TIA, Hypertension Additional Family Medical History / Comment(s): She has one brother with history of stroke and hypertension. Sister(s) Additional Family Medical History / Comment(s): She has 2 sisters and both have passed 1 from Alzheimer's dementia and one from brain aneurysm. Daughter(s) Additional Family Medical History / Comment(s): She has 6 children, 4 girls and 2 boys with strong history of hypertension. Mother Family Medical History: Congestive Heart Failure (CHF) Father Family Medical History: Deep Vein Thrombosis (DVT), Liver Disease Additional Family Medical History / Comment(s): Father from alcoholic cirrhosis and had history of hypertension. Medications and Allergies Home Medications Medication Instructions Recorded Confirmed Type Calcium Carbonate/Vitamin D3 1 tab PO AC-SUPPER 01/13/14 05/10/20 History [Calcium 500-Vit D3 400 Tablet] Cranberry Conc/C/Bacill Coag 1 tab PO AC-LUNCH 01/13/14 05/10/20 History [Cranberry Tablet] Insulin Glargine,Hum.rec.anlog 12 units SQ AC-LUNCH 08/03/15 05/10/20 History [Lantus Solostar] amLODIPine [Norvasc] 5 mg PO HS 08/03/15 05/10/20 History Ezetimibe [Zetia] 10 mg PO AC-LUNCH 03/13/16 05/10/20 History L.acidoph,Paracasei, B.lactis 1 cap PO PC-BRKFST 03/13/16 05/10/20 History [Probiotic] Multivit-Min/FA/Lycopen/Lutein 1 tab PO AC-LUNCH 03/13/16 05/10/20 History [Centrum Silver Tablet] Pravastatin Sodium [Pravachol] 80 mg PO AC-SUPPER 03/13/16 05/10/20 History Cholecalciferol [Vitamin D3 (25 50 mcg PO HS 04/19/20 05/10/20 History Mcg = 1000 Iu)] Isosorbide Mononitrate ER [Imdur] 60 mg PO PC-BRKFST 04/19/20 05/10/20 History Levothyroxine Sodium [Synthroid] 75 mcg PO AC-BRKFST 04/19/20 05/10/20 History Aspirin EC [Ecotrin Low Dose] 81 mg PO PC-BRKFST 05/10/20 05/10/20 History Cholestyramine (with Sugar) 4 gm PO PC-BID 05/10/20 05/10/20 History [Cholestyramine Packet] Niacin 500 mg PO AC-SUPPER 05/10/20 05/10/20 History Vancomycin HCl [Vancocin HCl] See Taper PO DIRECTED 05/10/20 05/10/20 History lisinopriL [Zestril] 20 mg PO PC-BRKFST 05/10/20 05/10/20 History Allergies Allergy/AdvReac Type Severity Reaction Status Date / Time allantoin [From Orajel] Allergy Swelling Verified 05/10/20 13:26 benzalkonium chloride Allergy Swelling Verified 05/10/20 13:26 [From Orajel] benzocaine [From Orajel] Allergy Swelling Verified 05/10/20 13:26 carbamide peroxide Allergy Swelling Verified 05/10/20 13:26 [From Orajel] codeine Allergy Nausea & Verified 05/10/20 13:26 Vomiting dipyridamole Allergy Unknown Verified 05/10/20 13:26 [From Persantine] enalapril maleate Allergy Swelling Verified 05/10/20 13:26 [From Vasotec] enalaprilat dihydrate Allergy Swelling Verified 05/10/20 13:26 [From Vasotec] furosemide [From Lasix] Allergy Unknown Verified 05/10/20 13:26 glimepiride [From Amaryl] Allergy Unknown Verified 05/10/20 13:26 hydralazine Allergy Unknown Verified 05/10/20 13:26 methotrexate Allergy Swelling Verified 05/10/20 13:26 naproxen [From Naprosyn] Allergy Unknown Verified 05/10/20 13:26 Penicillins Allergy Unknown Verified 05/10/20 13:26 Sulfa (Sulfonamide Allergy Swelling Verified 05/10/20 13:26 Antibiotics) zinc chloride [From Orajel] Allergy Swelling Verified 05/10/20 13:26 acetaminophen [From Ultracet] AdvReac Nausea & Verified 05/10/20 13:26 Vomiting diazepam [From Valium] AdvReac Confusion Verified 05/10/20 13:26 pentazocine lactate AdvReac Hallucinati Verified 05/10/20 13:26 [From Talwin] ons propoxyphene HCl AdvReac Hallucinati Verified 05/10/20 13:26 [From Darvon] ons tramadol HCl [From Ultracet] AdvReac Nausea & Verified 05/10/20 13:26 Vomiting CIPROCINONIDE Allergy Unknown Uncoded 05/10/20 13:26 Physical Exam Vitals: Vital Signs Temp Pulse Pulse Resp BP BP Pulse Ox 05/11/20 08:00 98.2 F 81 16 129/64 97 05/11/20 01:05 98.2 F 79 13 112/69 94 L 05/10/20 23:00 98.5 F 79 15 135/56 96 05/10/20 20:21 85 16 144/62 98 05/10/20 19:21 98.7 F 84 18 137/67 98 05/10/20 16:50 87 16 143/60 98 05/10/20 15:56 88 16 142/60 98 05/10/20 14:05 94 16 146/58 98 Intake and Output 05/10/20 05/11/20 05/11/20 22:59 06:59 14:59 Other: Voiding Method External Catheter # Voids 1 Weight 57.153 kg On physical examination, patient appears comfortable in no apparent distress. HEAD: Normocephalic, atraumatic. EYES: No scleral icterus. No conjunctival injection. MOUTH: No lesions, tongue midline. NECK: Trachea midline, no gross abnormalities. CHEST: Decreased air entry in all lung pickens. HEART: S1-S2 appreciated. ABDOMEN: Soft, mildly tender to palpation predominantly in the lower abdomen. Sudhir wel sounds are positive. No organomegaly. No guarding or rigidity. EXTREMITIES: Bilateral +1 pedal edema. SKIN: No rashes, no jaundice. NEUROLOGIC: Alert and oriented x3. Results CBC & Chem 7: 05/10/20 13:20 05/10/20 13:20 Labs: Abnormal Lab Results - Last 24 Hours (Table) 05/10/20 05/10/20 05/10/20 Range/Units 13:20 13:20 13:20 WBC 12.0 H (3.8-10.6) k/uL RBC 3.56 L (3.80-5.40) m/uL Hgb 10.8 L (11.4-16.0) gm/dL Hct 33.1 L (34.0-46.0) % Neutrophils # 10.4 H (1.3-7.7) k/uL APTT 20.7 L (22.0-30.0) sec BUN 37 H (7-17) mg/dL Glucose 176 H (74-99) mg/dL POC Glucose (mg/dL) (75-99) mg/dL ALT 55 H (4-34) U/L Total Protein 5.6 L (6.3-8.2) g/dL Albumin 3.0 L (3.5-5.0) g/dL Lipase 379 H (23-300) U/L Urine Protein (Negative) 05/10/20 05/11/20 05/11/20 Range/Units 14:25 06:44 11:25 WBC (3.8-10.6) k/uL RBC (3.80-5.40) m/uL Hgb (11.4-16.0) gm/dL Hct (34.0-46.0) % Neutrophils # (1.3-7.7) k/uL APTT (22.0-30.0) sec BUN (7-17) mg/dL Glucose (74-99) mg/dL POC Glucose (mg/dL) 112 H 116 H (75-99) mg/dL ALT (4-34) U/L Total Protein (6.3-8.2) g/dL Albumin (3.5-5.0) g/dL Lipase (23-300) U/L Urine Protein Trace H (Negative) CT scan - abdomen: report reviewed (computed tomography scan performed in evaluation with multiple findings including masslike thickening at the level and below the GE junction, thickening and hyperemia as well as fat stranding in the first and second portion of the duodenum and ahaustral/mildly thickened cecum with distal sigmoid div) Assessment and Plan (1) Abnormal computed tomography of abdomen and pelvis Narrative/Plan: 84-year-old female with multiple medical comorbidities presented to the hospital for nausea and vomiting. Previously the patient has been scoped for GI bleed in 02/2015 with findings of a 1.5 cm duodenal ulcer with active bleeding and a normal stomach and esophagus at that time. She recently was hospitalized and treated for Covid 19 as well as Clostridium difficile infection and is currently receiving a tapering dose of vancomycin. She presented with abdominal pain which was diffuse and cramping as well as nausea and vomiting. Computed tomography scan with multiple findings including masslike thickening at the level and below the GE junction, thickening and hyperemia as well as fat stranding in the first and second portion of the duodenum and ahaustral/mildly thickened cecum with distal sigmoid diverticulosis and wall thickening suggestive of mild acute diverticulitis. Current Visit: Yes Status: Acute Code(s): R93.5 - ABN FINDINGS ON DX IMAGING OF ABD REGIONS, INC RETROPERITON SNOMED Code(s): 865469076 (2) Diverticulitis Current Visit: Yes Status: Acute Code(s): K57.92 - DVTRCLI OF INTEST, PART UNSP, W/O PERF OR ABSCESS W/O BLEED SNOMED Code(s): 898279700 (3) Vomiting Current Visit: Yes Status: Acute Code(s): R11.10 - VOMITING, UNSPECIFIED SNOMED Code(s): 579793604 (4) Clostridium difficile colitis Current Visit: No Status: Acute Code(s): A04.7 - ENTEROCOLITIS DUE TO CLOSTRIDIUM DIFFICILE * DO NOT USE * SNOMED Code(s): 404958820 Plan: Supportive care Clear liquid diet Nothing by mouth after midnight Plan for EGD tomorrow for direct visualization of the GE junction and duodenum due to abnormality seen on computed tomography scan with all of the risks, benefits and possible complications discussed with the patient at length and all of her questions answered to her satisfaction Continue PPI therapy Continue broad-spectrum antibiotic therapy Appreciate recommendations from infectious disease and surgical services Thank you for allowing us to participate in the care of the patient
[2020-05-12] MEDS ORDERED: PROPOFOL 10 MG/ML 20 ML VIAL IV ONE (11:24)
[2020-05-12] MEDS ORDERED: IV FLUID CONTINUATION 1,000 ML IV ONE (11:26)
--- NOTE | 2020-05-12 11:57 | P.PCN ---
Date of Procedure: 05/12/20 Description of Procedure: BRIEF HISTORY: 84-year-old female with a medical history significant for hypertension, hyperlipidemia, obstructive sleep apnea, diabetes mellitus, prior CVA and history of GI bleed as well as a recent hospitalization for infection with Covid 19 and infection with clostridium differential still colitis who presented to the hospital due to concerns of symptoms of nausea and vomiting. Reports are of dark colored vomitus and possible blood in the vomitus. No further vomiting since presentation. She reports generalized abdominal pain. The patient had a computed tomography scan performed in evaluation with multiple findings including masslike thickening at the level and below the GE junction, thickening and hyperemia as well as fat stranding in the first and second portion of the duodenum and ahaustral/mildly thickened cecum with distal sigmoid diverticulosis and wall thickening suggestive of mild acute diverticulitis. Previously she has had an EGD in 02/2015 at which time 1.5 cm duodenal ulcer with active bleeding was noted. Patient is currently receiving antibiotic therapy on the medical floor. PROCEDURE PERFORMED: Esophagogastroduodenoscopy with biopsy. PREOPERATIVE DIAGNOSIS: Nausea and vomiting, abnormal computed tomography scan of the chest and abdomen, anemia. ESTIMATED BLOOD LOSS: Minimal. IV sedation per anesthesia. PROCEDURE: After informed consent was obtained, the patient was brought into the endoscopy unit. IV sedation was administered by Anesthesia under continuous monitoring. Initially the Olympus GIF-190 video endoscope was inserted into the mouth. Esophagus intubated without any difficulty. It was gradually advanced into the stomach and duodenum and carefully examined. The bulb and the second part of the duodenum appeared normal except for a 3 mm nonbleeding ulcer in the duodenal sweep without high risk stigmata for bleeding with biopsies taken of the duodenal ulcer and the duodenum. The scope at this time was withdrawn to the stomach, adequately insufflated with air, and upon careful examination, mucosa of the antrum, body, cardia and the fundus appeared normal except for some mild punctate erythema in the antrum and body suggestive of mild gastritis with biopsies taken. The scope was then withdrawn into the esophagus. The GE junction was located at 39 cm from the incisors and appeared grossly normal except for a widely patent Schatzki's ring. There were some punctate white plaques in the distal esophagus unclear if this was related to esophageal candidiasis or superficial erosions/ulcerations with biopsies of the distal esophagus taken. The esophagus appeared normal. There were no erosions or ulcerations seen and the patient tolerated the procedure well. IMPRESSION: 1. Nonbleeding duodenal ulcer without high-risk stigmata for bleeding. 2. Gastritis. 3. Small superficial white plaques in the distal esophagus of unclear etiology may represent esophageal candidiasis versus superficial ulcerations versus other etiology. 4. Widely patent esophageal Schatzki's ring just proximal to the GE junction. 5. Biopsies of the duodenum, duodenal ulcer, antrum body and lower esophagus. RECOMMENDATIONS: The findings of this examination were discussed with the patient and her family. Okay for full liquid diet. Await pathology from biopsies. Continue other medical management at this time. Continue antibiotic therapy. Infectious disease and surgical service following the patient and appreciate the recommendation.
[2020-05-12 12:22] LABS: Glucose,Whole Blood 88 mg/dL (75-99)
[2020-05-12] MEDS: EZETIMIBE 10 MG TAB PO SCH (12:49)
[2020-05-12] MEDS: INSULIN DETEMIR (LEVEMIR) 100 UNIT/ML SYR SQ SCH (12:49)
--- NOTE | 2020-05-12 13:18 | P.PN ---
Subjective Progress Note Date: 05/12/20 This is an 84-year-old female patient of Dr. Calderón with past medical history of hospitalization at [facility] because of gastrointestinal bleeding. She underwent EGD and underwent cauterization of her duodenal bulb ulcer, history of previous CVA with right-sided weakness, history of hyp othyroidism, degenerative joint disease, rheumatoid arthritis. History of C. difficile colitis in 2015. He had a recent hospitalization April 19 through April 21 which time she presented with Covid 19 illness. Patient has been seen by Dr. Vasquez with recommendations for outpatient treatment with Bamlanivimab and patient was discharged to [facility] and obtained her treatment as planned. Patient was discharged from [facility] 2 days ago. Prior to be in discharge, patient was diagnosed with C. difficile colitis and was started on vancomycin and continued after discharge. Patient states that she is having one bowel movement every day and now it is hard stools. She denies any nausea at this time. No fever. No choking episodes. She states she vomited once yesterday with dark red liquid. She complains of gas. She has generalized abdominal pain. Patient presented to [facility] emergency center for evaluation with concern for nausea and vomiting. She was found to be afebrile, heart rate 94, blood pressure 150/70, pulse ox 98% on room air. WBC 12, hemoglobin 10.8, platelet count 296. Electrolytes normal. BUN 37 creatinine 0.94. Blood sugar 176. ALT 55. Lipase 379. Urinalysis negative for infection. Coronavirus not detected. CAT scan of the abdomen and pelvis revealed masslike thickening at the GE junction. Recommend direct visualization to exclude neoplasm. Thickening and hyperemia and mild surrounding fat stranding at the first and second portions of the duodenum. Correlate for peptic ulcer disease. No perforation is seen. Ahaustral and a mildly thickened cecum correlate to exclude ischemic colitis. Distal sigmoid diverticulosis with wall thickening and adjacent fat stranding. Mild acute diverticulitis is not excluded. No abscess or free air. Patient has been admitted to the [facility] floor, consult requested with general surgery and infectious disease. Patient was seen by Dr. Vasquez with recommendations for Rocephin 1 g daily and Flagyl. Continue oral vancomycin with tapering dose, encouraged probiotic. 6: Patient is found resting in bed in acute distress. Patient continues to have abdominal pain. Denies nausea and vomiting. Scheduled for EGD today. Daughter is at the bedside. Patient remains afebrile, blood pressure 132/62, Pulse 88, respirations 16, pox 97% on room air. REVIEW OF SYSTEMS Constitutional: No fever, no chills, no night sweats. No weight change. Reports weakness, reports fatigue, reports lethargy. No daytime sleepiness. EENT: No headache. No blurred vision or double vision, no loss of vision. No loss of Hearing, no ringing in the ears, no dizziness. No nasal drainage or congestion. No epistaxis. No sore throat. Lungs: No shortness of breath, cough, no sputum production. No wheezing. Cardiovascular: No chest pain, no lower extremity edema. No palpitations. No paroxysmal nocturnal dyspnea. No orthopnea. Reports lightheadedness or dizziness. No syncopal episodes. Abdominal: No abdominal pain. Reported nausea, reported vomiting. No diarrhea. No constipation. No bloody or tarry stools reported loss of appetite. Genitourinary: No dysuria, increased frequency, urgency. No urinary retention. Musculoskeletal: No myalgias. No muscle weakness, no gait dysfunction, no frequent falls. No back pain. No neck pain. Integumentary: No wounds, no lesions. No rash or pruritus. No unusual bruising. No change in hair or nails. Neurologic: No aphasia. No facial droop. No change in mentation. No head injury. No headache. No paralysis. No paresthesia. Psychiatric: No depression. No anxiety. No mood swings. Endocrine: No abnormal blood sugars. No weight change. No excessive sweating or thirst. No cold intolerance. PHYSICAL EXAMINATION Gen: This is an 84-year-old female. Patient is resting in bed and appears to be comfortable and in no acute distress. HEENT: Head is atraumatic, normocephalic. Pupils equal, round. Sclerae is anicteric. NECK: Supple. No JVD. No lymphadenopathy. No thyromegaly. LUNGS: Clear to auscultation. No wheezes or rhonchi. No intercostal retractions. HEART: Regular rate and rhythm. No murmur. ABDOMEN: Soft. Bowel sounds are present. No masses. No tenderness. EXTREMITIES: No pedal edema. No calf tenderness. NEUROLOGICAL: Patient is awake, alert and oriented x3. Cranial nerves 2 through 12 are grossly intact. SKIN: ulcer to lateral right knee limited to skin breakdown with ecchymosis. ASSESSMENT AND PLAN 1. C. difficile colitis. Consult with Dr. Vasquez. Continue vancomycin on tapering dose. Probiotic and yogurt daily. gastroenterology consult appreciated 2. Diverticulitis. Continue Rocephin 1 g IV piggyback daily and Flagyl 500 mg 3 times daily. Surgical consult Appreciated 3. Recent diagnosis of COVID19 infection, resolved and completed treatment with Bamlanivimab at [facility]. 4. History of GI bleed, stable. EGD to be performed today. 3. History of CVA with right-sided weakness, stable. Continue statin for secondary prevention. 4. Hypothyroidism. Continue levothyroxine 75 g daily. 5. Hyperlipidemia. Continue statin, Zetia. 6. Diabetes mellitus type 2 insulin requiring. Continue Levemir 12 units daily at lunch, NovoLog scale before meals and at bedtime. 7. Hypertension. Continue lisinopril 20 mg daily, amlodipine 5 mg daily. 8. History of angina. Continue Imdur 60 mg daily, pravastatin. 9. GI prophylaxis. Protonix 40 mg IV twice daily. 10. DVT prophylaxis. Heparin subcu. Patient will be admitted to the hospital for a minimum of 1 night stay with plan to discharge to outpatient setting for appropriate treatment. DISCHARGE PLAN [facility]. Impression and plan of care have been directed as dictated by the signing physician. Reba Jacobs nurse practitioner acting as scribe for signing physician. Objective - Vital Signs Vital signs: Vital Signs Temp 99.1 F 05/12/20 08:00 Pulse 88 05/12/20 08:00 Resp 16 05/12/20 08:00 BP 132/62 05/12/20 08:00 Pulse Ox 97 05/12/20 08:00 Intake & Output 05/11/20 05/12/20 05/12/20 18:59 06:59 18:59 Intake Total 200 Balance 200 Weight 57.153 kg Intake: IV 200 Other: Voiding Method External Catheter External Catheter # Voids 3 2 # Bowel Movements 5 1 - Labs CBC & Chem 7: 05/10/20 13:20 05/10/20 13:20 Labs: Abnormal Lab Results - Last 24 Hours (Table) 05/11/20 05/11/20 Range/Units 16:26 20:45 POC Glucose (mg/dL) 69 L 150 H (75-99) mg/dL Microbiology - Last 24 Hours (Table) 05/10/20 16:40 Blood Culture - Preliminary Blood No Growth after 24 hours
[2020-05-12] MEDS: PRAVASTATIN SODIUM 80 MG TAB PO SCH (16:54)
[2020-05-12 17:00] LABS: Glucose,Whole Blood 124 mg/dL (75-99)
[2020-05-12] MEDS: amLODIPine 5 MG TAB PO SCH (21:10)
[2020-05-12 21:18] LABS: Glucose,Whole Blood 138 mg/dL (75-99)
[2020-05-13] MEDS: METOCLOPRAMIDE 5 MG/ML 2 ML VIAL IVP SCH ×3 (00:54→12:11)
[2020-05-13] MEDS: metroNIDAZOLE-NS PMX 500 MG in SALINE 1 100ML.BAG IVPB SCH ×2 (00:55→09:16)
[2020-05-13] MEDS: SODIUM CHLORIDE 0.9% 1,000 ML IV SCH (05:32)
[2020-05-13 06:48] LABS: Glucose,Whole Blood 89 mg/dL (75-99)
[2020-05-13] MEDS: INSULIN ASPART (NovoLOG) 100 UNIT/ML VIAL SQ SCH ×2 (08:06→12:12)
[2020-05-13] MEDS: PANTOPRAZOLE 40 MG/10 ML VIAL IV SCH (08:39)
[2020-05-13] MEDS: lisinopriL 20 MG TAB PO SCH (08:40)
[2020-05-13] MEDS: LACTOBACILLUS ACIDOPH & BULGAR 1 EACH PACKET PO SCH (08:40)
[2020-05-13] MEDS: ASPIRIN 81 MG PO SCH (08:40)
[2020-05-13] MEDS: LEVOTHYROXINE 75 MCG TAB PO SCH (08:40)
[2020-05-13] MEDS: VANCOMYCIN 125 MG CAPSULE PO SCH ×2 (08:40→12:12)
[2020-05-13] MEDS: ISOSORBIDE MONONITRATE ER 60 MG TAB.ER.24H PO SCH (08:44)
[2020-05-13 08:53] VITALS: BP 138/62; PULSE 89; RESP 18; TEMP 99.1
[2020-05-13 09:56] LABS: African American GFR (CKD) 75 (>60 ml/min/1.73 sqM); Anion Gap 7 mmol/L; Blood Urea Nitrogen 13 mg/dL (7-17); Calcium 7.8 mg/dL (8.4-10.2); Carbon Dioxide 19 mmol/L (22-30); Chloride 114 mmol/L (98-107); Glucose 79 mg/dL (74-99); Non-African American GFR(CKD) 65 (>60 ml/min/1.73 sqM); Potassium 3.7 mmol/L (3.5-5.1); Sodium 140 mmol/L (137-145)
[2020-05-13 10:08] LABS: Basophils % (A) 0 %; Eosinophils # (A) 0.1 k/uL (0-0.7); Eosinophils % (A) 2 %; HCT 29.4 % (34.0-46.0); HGB 9.8 gm/dL (11.4-16.0); Lymphocytes # (A) 0.9 k/uL (1.0-4.8); Lymphocytes % (A) 13 %; MCH 31.6 pg (25.0-35.0); MCHC 33.3 g/dL (31.0-37.0); MCV 94.9 fL (80.0-100.0); Mean Platelet Volume 7.8; Monocytes # (A) 0.4 k/uL (0-1.0); Monocytes % (A) 5 %; Neutrophils # (A) 5.6 k/uL (1.3-7.7); Neutrophils % (A) 79 %; Platelet Count 267 k/uL (150-450); RBC 3.09 m/uL (3.80-5.40); RDW 12.5 % (11.5-15.5); WBC 7.1 k/uL (3.8-10.6)
--- NOTE | 2020-05-13 11:28 | P.DS ---
Providers Date of admission: 05/10/20 16:18 Attending physician: Abigail Mathews Consults: 05/10/20 16:19 Consult Physician Routine Consulting Provider: Bladimir Vasquez Consult Reason/Comments: Gastrointestinal infection Do you want consulting provider notified?: Yes Consult Physician Urgent Consulting Provider: Gonzalo Groves Consult Reason/Comments: Abnormal CT, please review, diverticulitis, possible mass, possible ischemi Do you want consulting provider notified?: Yes 05/11/20 12:08 Consult Physician Stat Consulting Provider: Ela Richardson Consult Reason/Comments: GE junction mass/duod ulcer/endoscopy Do you want consulting provider notified?: Yes Primary care physician: [facility] Course: This is an 84-year-old female patient of Dr. Calderón with past medical history of hospitalization at [facility] because of gastrointestinal bleeding. She underwent EGD and underwent cauterization of her duodenal bulb ulcer, history of previous CVA with right-sided weakness, history of hypothyroidism, degenerative joint disease, rheumatoid arthritis. History of C. difficile colitis in 2014. He had a recent hospitalization April 19 through April 21 which time she presented with Covid 19 illness. Patient has been seen by Dr. Vasquez with recommendations for outpatient treatment with Bamlanivimab and patient was discharged to [facility] and obtained her treatment as planned. Patient was discharged from [facility] 2 days ago. Prior to be in discharge, patient was diagnosed with C. difficile colitis and was started on vancomycin and continued after discharge. Patient states that she is having one bowel movement every day and now it is hard stools. She denies any nausea at this time. No fever. No choking episodes. She states she vomited once yesterday with dark red liquid. She complains of gas. She has generalized abdominal pain. Patient presented to [facility] emergency center for evaluation with concern for nausea and vomiting. She was found to be afebrile, heart rate 94, blood pressure 150/70, pulse ox 98% on room air. WBC 12, hemoglobin 10.8, platelet count 296. Electrolytes normal. BUN 37 creatinine 0.94. Blood sugar 176. ALT 55. Lipase 379. Urinalysis negative for infection. Coronavirus not detected. CAT scan of the abdomen and pelvis revealed masslike thickening at the GE junction. Recommend direct visualization to exclude neoplasm. Thickening and hyperemia and mild surrounding fat stranding at the first and second portions of the duodenum. Correlate for peptic ulcer disease. No perforation is seen. Ahaustral and a mildly thickened cecum correlate to exclude ischemic colitis. Distal sigmoid diverticulosis with wall thickening and adjacent fat stranding. Mild acute diverticulitis is not excluded. No abscess or free air. Patient has been admitted to the [facility] floor, consult requested with general surgery and infectious disease. Patient was seen by Dr. Vasquez with recommendations for Rocephin 1 g daily and Flagyl. Continue oral vancomycin with tapering dose, encouraged probiotic. 05/12: Patient is found resting in bed in acute distress. Patient continues to have abdominal pain. Denies nausea and vomiting. Scheduled for EGD today. Daughter is at the bedside. Patient remains afebrile, blood pressure 132/62, Pulse 88, respirations 16, pox 97% on room air. 05/13: She continues to have loose dark stools. EGD with biopsy performed yesterday pressure and: Nonhealing duodenal ulcer without high risk stigmata for bleeding, gastritis, small superficial white plaques in the distal esophagus of unclear etiology may represent esophageal Candidus verses superficial ulcerations versus other etiology, widely patent esophagus, biopsies of the duodenum, duodenal ulcer in antrum body and lower esophagus. Continue with an erratic therapy. It is requesting to go home. Patient states that she is feeling much better and is not having any active bleeding. Luca diagnosis: 1. C. difficile colitis. 2. Diverticulitis. 3. Recent diagnosis of COVID19 infection, 4. History of GI bleed, 3. History of CVA with right-sided weakness, 4. Hypothyroidism. 5. Hyperlipidemia. 6. Diabetes mellitus type 2 insulin requiring. 7. Hypertension. 8. History of angina. DISCHARGE DISPOSITION Home Impression and plan of care have been directed as dictated by the signing physician. Reba Jacobs nurse practitioner acting as scribe for signing physician. Patient Condition at Discharge: Serious Plan - Discharge Summary Discharge Rx Participant: No New Discharge Prescriptions: New metroNIDAZOLE [Flagyl] 250 mg PO TID #21 tab Pantoprazole [Protonix] 40 mg PO DAILY #30 tablet. Continue Cranberry Conc/C/Bacill Coag [Cranberry Tablet] 1 tab PO AC-LUNCH Calcium Carbonate/Vitamin D3 [Calcium 500-Vit D3 400 Tablet] 1 tab PO AC- SUPPER Insulin Glargine,Hum.rec.anlog [Lantus Solostar] 12 units SQ AC-LUNCH amLODIPine [Norvasc] 5 mg PO HS L.acidoph,Paracasei, B.lactis [Probiotic] 1 cap PO PC-BRKFST Pravastatin Sodium [Pravachol] 80 mg PO AC-SUPPER Multivit-Min/FA/Lycopen/Lutein [Centrum Silver Tablet] 1 tab PO AC-LUNCH Ezetimibe [Zetia] 10 mg PO AC-LUNCH Cholecalciferol [Vitamin D3 (25 Mcg = 1000 Iu)] 50 mcg PO HS Isosorbide Mononitrate ER [Imdur] 60 mg PO PC-BRKFST Levothyroxine Sodium [Synthroid] 75 mcg PO AC-BRKFST Aspirin EC [Ecotrin Low Dose] 81 mg PO PC-BRKFST Cholestyramine (with Sugar) [Cholestyramine Packet] 4 gm PO PC-BID Niacin 500 mg PO AC-SUPPER Vancomycin HCl [Vancocin HCl] See Taper PO DIRECTED lisinopriL [Zestril] 20 mg PO PC-BRKFST Discharge Medication List Calcium Carbonate/Vitamin D3 [Calcium 500-Vit D3 400 Tablet] 1 tab PO AC-SUPPER 01/13/14 [History] Cranberry Conc/C/Bacill Coag [Cranberry Tablet] 1 tab PO AC-LUNCH 01/13/14 [History] Insulin Glargine,Hum.rec.anlog [Lantus Solostar] 12 units SQ AC-LUNCH 08/03/15 [History] amLODIPine [Norvasc] 5 mg PO HS 08/03/15 [History] Ezetimibe [Zetia] 10 mg PO AC-LUNCH 03/13/16 [History] L.acidoph,Paracasei, B.lactis [Probiotic] 1 cap PO PC-BRKFST 03/13/16 [History] Multivit-Min/FA/Lycopen/Lutein [Centrum Silver Tablet] 1 tab PO AC-LUNCH 03/13/16 [History] Pravastatin Sodium [Pravachol] 80 mg PO AC-SUPPER 03/13/16 [History] Cholecalciferol [Vitamin D3 (25 Mcg = 1000 Iu)] 50 mcg PO HS 04/19/20 [History] Isosorbide Mononitrate ER [Imdur] 60 mg PO PC-BRKFST 04/19/20 [History] Levothyroxine Sodium [Synthroid] 75 mcg PO AC-BRKFST 04/19/20 [History] Aspirin EC [Ecotrin Low Dose] 81 mg PO PC-BRKFST 05/10/20 [History] Cholestyramine (with Sugar) [Cholestyramine Packet] 4 gm PO PC-BID 05/10/20 [History] Niacin 500 mg PO AC-SUPPER 05/10/20 [History] Vancomycin HCl [Vancocin HCl] See Taper PO DIRECTED 05/10/20 [History] lisinopriL [Zestril] 20 mg PO PC-BRKFST 05/10/20 [History] Pantoprazole [Protonix] 40 mg PO DAILY #30 tablet. 05/13/20 [Rx] metroNIDAZOLE [Flagyl] 250 mg PO TID #21 tab 05/13/20 [Rx] Follow up Appointment(s)/Referral(s): Harshal Calderón MD [Primary Care Provider] - 1-2 days Patient Instructions/Handouts: Peptic Ulcer (DC), C Diff (Clostridium Difficile) Infection (DC)
[2020-05-13 11:29] LABS: Glucose,Whole Blood 143 mg/dL (75-99)
[2020-05-13] MEDS: EZETIMIBE 10 MG TAB PO SCH (12:12)
[2020-05-13] MEDS: INSULIN DETEMIR (LEVEMIR) 100 UNIT/ML SYR SQ SCH (12:12)
[2020-05-15] MEDS ORDERED: VANCOMYCIN 125 MG CAPSULE PO SCH (09:00)
[2020-05-22] MEDS ORDERED: VANCOMYCIN 125 MG CAPSULE PO SCH (09:00)
[2020-05-29] MEDS ORDERED: VANCOMYCIN 125 MG CAPSULE PO SCH (09:00)
== END 2020-05-13 13:15 | disposition home or self-care (01) | DRG 372 ==
LOC: EC 12:28 → 4SSUR 16:18
PROVIDERS: ADMIT Family Medicine; ATTEND Family Medicine
PROC: 0DB78ZX Excision of Stomach, Pylorus, Via Natural or Artificial Opening Endoscopic, Diagnostic (ICD-10-PCS; principal; 2020-05-12 11:50)
PROC: 0DB98ZX Excision of Duodenum, Via Natural or Artificial Opening Endoscopic, Diagnostic (ICD-10-PCS; principal; 2020-05-12 11:50)
PROC: 0DB38ZX Excision of Lower Esophagus, Via Natural or Artificial Opening Endoscopic, Diagnostic (ICD-10-PCS; principal; 2020-05-12 11:50)
DX: A04.72 Enterocolitis due to Clostridium difficile, not specified as recurrent (principal); I69.351 Hemiplegia and hemiparesis following cerebral infarction affecting right dominant side; K57.32 Diverticulitis of large intestine without perforation or abscess without bleeding; E11.9 Type 2 diabetes mellitus without complications; M06.9 Rheumatoid arthritis, unspecified; Z79.4 Long term (current) use of insulin; I20.9 Angina pectoris, unspecified; Z20.822 Contact with and (suspected) exposure to COVID-19; K26.9 Duodenal ulcer, unspecified as acute or chronic, without hemorrhage or perforation; K22.2 Esophageal obstruction; K29.70 Gastritis, unspecified, without bleeding; D64.9 Anemia, unspecified; E78.5 Hyperlipidemia, unspecified; K59.00 Constipation, unspecified; I10 Essential (primary) hypertension; G47.33 Obstructive sleep apnea (adult) (pediatric); E03.9 Hypothyroidism, unspecified; M19.90 Unspecified osteoarthritis, unspecified site; Z86.16 Personal history of COVID-19; Z79.82 Long term (current) use of aspirin; Z79.890 Hormone replacement therapy; Z79.899 Other long term (current) drug therapy; Z86.19 Personal history of other infectious and parasitic diseases; Z90.49 Acquired absence of other specified parts of digestive tract; Z90.710 Acquired absence of both cervix and uterus; Z96.641 Presence of right artificial hip joint; Z87.19 Personal history of other diseases of the digestive system; Z87.42 Personal history of other diseases of the female genital tract; Z87.2 Personal history of diseases of the skin and subcutaneous tissue; Z98.890 Other specified postprocedural states; Z88.6 Allergy status to analgesic agent; Z88.5 Allergy status to narcotic agent; Z88.0 Allergy status to penicillin; Z88.2 Allergy status to sulfonamides; Z88.8 Allergy status to other drugs, medicaments and biological substances; Z82.49 Family history of ischemic heart disease and other diseases of the circulatory system; Z82.3 Family history of stroke; Z82.0 Family history of epilepsy and other diseases of the nervous system; Z83.2 Family history of diseases of the blood and blood-forming organs and certain disorders involving the immune mechanism; Z83.79 Family history of other diseases of the digestive system; Z81.1 Family history of alcohol abuse and dependence
CPT/HCPCS: 36415; 43239; 74177; 80048; 80053; 81003; 82150; 83605; 83690; 85025; 85610; 85730; 87040; 87635; 88305; 96361; 96365; 96366; 96375; 99291

== ENCOUNTER → 2020-06-27 | Outpatient (CLI) | payer MEDICARE, BC ==
[2020-06-28 05:27] LABS: African American GFR (CKD) 77.9 (60.0-200.0); Albumin 4.8 g/dL (3.80-4.90); Albumin/Globulin Ratio 2.29 (1.60-3.17); Anion Gap 16.4 mmol/L (4.00-12.00); BUN/Creat Ratio 28.75 Ratio (12.00-20.00); Calcium 10.1 mg/dL (8.7-10.3); Carbon Dioxide 23.6 mmol/L (21.6-31.8); Chol/HDL Ratio 3.25; Globulin 2.1 g/dL (1.6-3.3); LDL Cholesterol,Calculated 89.8 mg/dL (0.0-131.0); Non-African American GFR(CKD) 67.2 (60.0-200.0); Total Bilirubin 0.7 mg/dL (0.2-1.2); Total Protein 6.9 g/dL (6.2-8.2); VLDL Calculation 29.2 mg/dL (5.00-40.00)
== END | disposition home or self-care (01) ==
LOC: LABWHC1 10:10
PROVIDERS: ATTEND Nurse Practitioner Adult Health
DX: E78.2 Mixed hyperlipidemia (principal); E03.8 Other specified hypothyroidism; E11.65 Type 2 diabetes mellitus with hyperglycemia; I10 Essential (primary) hypertension
CPT/HCPCS: 36415; 80053; 80061; 84443

== ENCOUNTER 2022-10-21 16:09 | Inpatient (IN) | payer BC, MEDICARE ==
--- NOTE | 2022-10-21 16:13 | ED ---
General Adult HPI - General Source: RN notes reviewed <Mayra Gallegos - Last Filed: 10/21/22 16:20> <Darwin Knight - Last Filed: 10/21/22 18:22> - General Stated complaint: Chest Pain Time Seen by Provider: 10/21/22 16:12 - History of Present Illness Initial comments: 86-year-old female presents to the emergency department with acute chest pain x days. THAT IS SHARP AND LOCALIZED TO HER STERNAL AREA. ADMITS TO ACCOMPANYING SHORTNESS OF BREATH. I performed the quick note portion of this evaluation. Verbally signed Mayra Gallegos PA-C (Mayra Gallegos) This is an 86-year-old female who presents emergency department stating she star mike having chest pain yesterday. Patient states it's a pressure sensation in her radiates to her jaw. Patient states also makes her very short of breath. Patient also states it occurred again today and she said it was much worse so she decided to tell her family. Patient states she has had a previous heart attack he is a diabetic and does have high blood pressure. Patient states the pain does persist at this moment. Patient states she is ALLERGIC to aspirin. Patient states she has had nitroglycerin in the past and has not been a problem. Patient denies any recent fever chills or cough. Patient denies any swelling to the legs or calf tenderness. (Darwin Knight) - Related Data Home Medications Medication Instructions Recorded Confirmed Insulin Glargine,Hum.rec.anlog 16 units SQ HS 08/03/15 10/21/22 [Lantus Solostar Pen] Ezetimibe [Zetia] 10 mg PO DAILY 03/13/16 10/21/22 Multivit-Min/FA/Lycopen/Lutein 1 tab PO DAILY 03/13/16 10/21/22 [Centrum Silver Tablet] Pravastatin Sodium [Pravachol] 80 mg PO HS 03/13/16 10/21/22 Isosorbide Mononitrate ER [Imdur] 60 mg PO DAILY 04/19/20 10/21/22 Levothyroxine Sodium [Synthroid] 75 mcg PO AC-BRKFST 04/19/20 10/21/22 Bumetanide [Bumex] 1 mg PO MOWEFR 10/21/22 10/21/22 Famotidine [Pepcid] 20 mg PO DAILY 10/21/22 10/21/22 Metoprolol Succinate (ER) [Toprol 50 mg PO DAILY 10/21/22 10/21/22 Xl] diphenhydrAMINE [Benadryl] 25 mg PO QID PRN 10/21/22 10/21/22 Allergies Allergy/AdvReac Type Severity Reaction Status Date / Time allantoin [From Orajel] Allergy Swelling Verified 10/21/22 18:02 benzalkonium chloride Allergy Swelling Verified 10/21/22 18:02 [From Orajel] benzocaine [From Orajel] Allergy Swelling Verified 10/21/22 18:02 carbamide peroxide Allergy Swelling Verified 10/21/22 18:02 [From Orajel] codeine Allergy Nausea & Verified 10/21/22 18:02 Vomiting dipyridamole Allergy Unknown Verified 10/21/22 18:02 [From Persantine] enalapril maleate Allergy Swelling Verified 10/21/22 18:02 [From Vasotec] enalaprilat dihydrate Allergy Swelling Verified 10/21/22 18:02 [From Vasotec] furosemide [From Lasix] Allergy Unknown Verified 10/21/22 18:02 glimepiride [From Amaryl] Allergy Unknown Verified 10/21/22 18:02 hydralazine Allergy Unknown Verified 10/21/22 18:02 methotrexate Allergy Swelling Verified 10/21/22 18:02 naproxen [From Naprosyn] Allergy Unknown Verified 10/21/22 18:02 Penicillins Allergy Unknown Verified 10/21/22 18:02 Sulfa (Sulfonamide Allergy Swelling Verified 10/21/22 18:02 Antibiotics) zinc chloride [From Orajel] Allergy Swelling Verified 10/21/22 18:02 acetaminophen [From Ultracet] AdvReac Nausea & Verified 10/21/22 18:02 Vomiting diazepam [From Valium] AdvReac Confusion Verified 10/21/22 18:02 pentazocine lactate AdvReac Hallucinati Verified 10/21/22 18:02 [From Talwin] ons propoxyphene HCl AdvReac Hallucinati Verified 10/21/22 18:02 [From Darvon] ons tramadol HCl [From Ultracet] AdvReac Nausea & Verified 10/21/22 18:02 Vomiting CIPROCINONIDE Allergy Unknown Uncoded 05/10/20 13:26 Review of Systems ROS Other: All systems not noted in ROS Statement are negative. <Mayra Gallegos - Last Filed: 10/21/22 16:20> ROS Other: All systems not noted in ROS Statement are negative. <Darwin Knight - Last Filed: 10/21/22 18:22> ROS Statement: Those systems with pertinent positive or pertinent negative responses have been documented in the HPI. Past Medical History Past Medical History: CVA/TIA, Diabetes Mellitus, GI Bleed, Hyperlipidemia, Hypertension, Rheumatoid Arthritis (RA), Sleep Apnea/CPAP/BIPAP, Thyroid Disorder Additional Past Medical History / Comment(s): arthritis, murmur, cataracts, obstructive sleep apnea on CPAP. History of Any Multi-Drug Resistant Organisms: MRSA Date of last positivie culture/infection: 08/28/22 MDRO Source:: Urine Past Surgical History: Appendectomy, Cholecystectomy, Hysterectomy, Joint Replacement Additional Past Surgical History / Comment(s): mouth tumor benign, rt arm bone tumor- benign, rt breast biopsy - benign, kidney biopsy for function- no problems, liver biopsy, right partial mastectomy, Rt hip replaced, ulcer caterization to address GI bleed. Past Anesthesia/Blood Transfusion Reactions: Previous Problems w/ Anesthesia Additional Past Anesthesia/Blood Transfusion Reaction / Comment(s): hard to wake up Past Psychological History: No Psychological Hx Reported Additional Psychological History / Comment(s): .Lives independently with the help of her multiple family members including her daughters. Transporter as needed. She is a lifelong nonsmoker with no marijuana, street drug use or alcohol abuse. Does not work outside of the home. No international travel. No experience. She does use a cane for ambulation and has a CPAP. No animal exposures. Smoking Status: Never smoker Past Alcohol Use History: None Reported Past Drug Use History: None Reported - Past Family History Brother(s) Family Medical History: CVA/TIA, Hypertension Additional Family Medical History / Comment(s): She has one brother with history of stroke and hypertension. Sister(s) Additional Family Medical History / Comment(s): She has 2 sisters and both have passed 1 from Alzheimer's dementia and one from brain aneurysm. Daughter(s) Additional Family Medical History / Comment(s): She has 6 children, 4 girls and 2 boys with strong history of hypertension. Mother Family Medical History: Congestive Heart Failure (CHF) Father Family Medical History: Deep Vein Thrombosis (DVT), Liver Disease Additional Family Medical History / Comment(s): Father from alcoholic cirrhosis and had history of hypertension. <Mayra Gallegos - Last Filed: 10/21/22 16:20> General Exam <Mayra Gallegos - Last Filed: 10/21/22 16:20> <Darwin Knight - Last Filed: 10/21/22 18:22> - General Exam Comments Initial Comments: Visual Physical Exam Vital signs reviewed General: Well-appearing, nontoxic, no acute distress. Head: Normocephalic, atraumatic Eyes: PERRLA, EOMI ENT: Airway patent Chest: Nonlabored breathing Skin: No visual rash, normal skin tone Neuro: Alert and oriented 3 Musculoskeletal: No gross abnormalities (Mayra Gallegos) GENERAL: Patient is well-developed and well-nourished. Patient is nontoxic and well- hydrated and is in mild distress. ENT: Neck is soft and supple. No significant lymphadenopathy is noted. Oropharynx is clear. Moist mucous membranes. Neck has full range of motion without eliciting any pain. EYES: The sclera were anicteric and conjunctiva were pink and moist. Extraocular movements were intact and pupils were equal round and reactive to light. Eyelids were unremarkable. PULMONARY: Unlabored respirations. Good breath sounds bilaterally. No audible rales rhonchi or wheezing was noted. CARDIOVASCULAR: There is a regular rate and rhythm without any murmurs gallops or rubs. ABDOMEN: Soft and nontender with normal bowel sounds. SKIN: Skin is clear with no lesions or rashes and otherwise unremarkable. NEUROLOGIC: Patient is alert and oriented x3. Cranial nerves II through XII are grossly intact. Motor and sensory are also intact. Normal speech, volume and content. Symmetrical smile. MUSCULOSKELETAL: Normal extremities with adequate strength and full range of motion. LYMPHATICS: No significant lymphadenopathy is noted PSYCHIATRIC: Normal psychiatric evaluation. (Darwin Knight) Course Vital Signs 10/21/22 16:18 Temperature 97.8 F Pulse Rate 95 Respiratory 20 Rate Blood Pressure 133/79 O2 Sat by Pulse 97 Oximetry Medical Decision Making - Lab Data Result diagrams: 10/21/22 16:28 10/21/22 16:28 <Darwin Knight - Last Filed: 10/21/22 18:22> - Medical Decision Making EKG was interpreted by myself. EKG shows a sinus rhythm at 94 bpm OH interval 276 QRS 145 Q-T intervals 42 QTC is 454 patient has a left bundle branch block. Was pt. sent in by a medical professional or institution (, NURYS, TECHNOLOGY TRAINER, urgent care, hospital, or [facility]...) When possible be specific @ -No Did you speak to anyone other than the patient for history (EMS, parent, family, police, friend...)? What history was obtained from this source @ -No Did you review nursing and triage notes (agree or disagree)? Why? @ -I reviewed and agree with nursing and triage notes Were old charts reviewed (outside hosp., previous admission, EMS record, old EKG, old radiological studies, urgent care reports/EKG's, [facility] records)? Report findings @ -I reviewed prior charts prior radiological studies prior lab work Differential Diagnosis (chest pain, altered mental status, abdominal pain women, abdominal pain men, vaginal bleeding, weakness, fever, dyspnea, syncope, headache, dizziness, GI bleed, back pain, seizure, CVA, palpatations, mental health, musculoskeletal)? @ -Differential Chest Pain: Stable Angina, Unstable Angina, STEMI, NSTEMI Aortic Dissection, Pneumothorax, Musculoskeletal, Esophageal Spasm GERD, Cholecystitis, Pancreatitis, Zoster, this is not meant to be an all-inclusive list. EKG interpreted by me (3pts min.). @ -As above X-rays interpreted by me (1pt min.). @ -Chest x-ray shows a left sided pleural effusion CT interpreted by me (1pt min.). @ -None done U/S interpreted by me (1pt. min.). @ -None done What testing was considered but not performed or refused? (CT, X-rays, U/S, labs)? Why? @ -None What meds were considered but not given or refused? Why? @ -None Did you discuss the management of the patient with other professionals (professionals i.e. , NURYS, TECHNOLOGY TRAINER, lab, RT, psych nurse, social media analyst, javascript ui developer, teacher, product safety officer, test case developer)? Give summary @ -I spoke with the [facility] hospitalist and they agreed to admit the patient Was smoking cessation discussed for >3mins.? @ -No Was critical care preformed (if so, how long)? @ -No Were there social determinants of health that impacted care today? How? (Homelessness, low income, unemployed, alcoholism, drug addiction, transportation, low edu. Level, literacy, decrease access to med. care, senior living, rehab)? @ -No Was there de-escalation of care discussed even if they declined (Discuss DNR or withdrawal of care, Hospice)? DNR status @ -No What co-morbidities impacted this encounter? (DM, HTN, Smoking, COPD, CAD, Cance r, CVA, ARF, Chemo, Hep., AIDS, mental health diagnosis, sleep apnea, morbid obesity)? @ -None Was patient admitted / discharged? Hospital course, mention meds given and route, prescriptions, significant lab abnormalities, going to OR and other pertinent info. @ -Patient has been having chest pain intermittently since yesterday. Patient was given nitroglycerin in the emergency department. Patient will be admitted to the [facility]. I will consult cardiology. Patient's initial troponin was normal. Patient refused aspirin because she states she is ALLERGIC to it. Undiagnosed new problem with uncertain prognosis? @ -No Drug Therapy requiring intensive monitoring for toxicity (Heparin, Nitro, Insulin, Cardizem)? @ -No Were any procedures done? @ -No Diagnosis/symptom? @ -Chest pain Acute, or Chronic, or Acute on Chronic? @ -Acute Uncomplicated (without systemic symptoms) or Complicated (systemic symptoms)? @ -Complicated Side effects of treatment? @ -No Exacerbation, Progression, or Severe Exacerbation? @ -No Poses a threat to life or bodily function? How? (Chest pain, [place], HI, pneumonia, PE, COPD, DKA, ARF, appy, cholecystitis, CVA, Diverticulitis, Homicidal, Suicidal, threat to staff... and all critical care pts) @ -Yes (Darwin Knight) - Lab Data Lab Results 10/21/22 10/21/22 10/21/22 Range/Units 16:28 16:28 16:28 WBC 11.1 H (3.8-10.6) k/uL RBC 3.87 (3.80-5.40) m/uL Hgb 12.2 (11.4-16.0) gm/dL Hct 36.3 (34.0-46.0) % MCV 93.8 (80.0-100.0) fL MCH 31.5 (25.0-35.0) pg MCHC 33.6 (31.0-37.0) g/dL RDW 13.9 (11.5-15.5) % Plt Count 229 (150-450) k/uL MPV 8.8 Neutrophils % 79 % Lymphocytes % 12 % Monocytes % 5 % Eosinophils % 2 % Basophils % 0 % Neutrophils # 8.8 H (1.3-7.7) k/uL Lymphocytes # 1.4 (1.0-4.8) k/uL Monocytes # 0.6 (0-1.0) k/uL Eosinophils # 0.2 (0-0.7) k/uL Basophils # 0.1 (0-0.2) k/uL PT 10.9 (9.0-12.0) sec INR 1.0 (<1.2) APTT 22.4 (22.0-30.0) sec Sodium 134 L (137-145) mmol/L Potassium 4.1 (3.5-5.1) mmol/L Chloride 104 (98-107) mmol/L Carbon Dioxide 19 L (22-30) mmol/L Anion Gap 11 mmol/L BUN 54 H (7-17) mg/dL Creatinine 1.03 (0.52-1.04) mg/dL Est GFR (CKD-EPI)AfAm 57 (>60 ml/min/1.73 sqM) Est GFR (CKD-EPI)NonAf 49 (>60 ml/min/1.73 sqM) Glucose 204 H (74-99) mg/dL Calcium 9.4 (8.4-10.2) mg/dL Magnesium 1.8 (1.6-2.3) mg/dL Total Bilirubin 1.0 (0.2-1.3) mg/dL AST 28 (14-36) U/L ALT 17 (4-34) U/L Alkaline Phosphatase 95 (38-126) U/L Troponin I (0.000-0.034) ng/mL Total Protein 6.3 (6.3-8.2) g/dL Albumin 3.6 (3.5-5.0) g/dL 10/21/22 Range/Units 16:28 WBC (3.8-10.6) k/uL RBC (3.80-5.40) m/uL Hgb (11.4-16.0) gm/dL Hct (34.0-46.0) % MCV (80.0-100.0) fL MCH (25.0-35.0) pg MCHC (31.0-37.0) g/dL RDW (11.5-15.5) % Plt Count (150-450) k/uL MPV Neutrophils % % Lymphocytes % % Monocytes % % Eosinophils % % Basophils % % Neutrophils # (1.3-7.7) k/uL Lymphocytes # (1.0-4.8) k/uL Monocytes # (0-1.0) k/uL Eosinophils # (0-0.7) k/uL Basophils # (0-0.2) k/uL PT (9.0-12.0) sec INR (<1.2) APTT (22.0-30.0) sec Sodium (137-145) mmol/L Potassium (3.5-5.1) mmol/L Chloride (98-107) mmol/L Carbon Dioxide (22-30) mmol/L Anion Gap mmol/L BUN (7-17) mg/dL Creatinine (0.52-1.04) mg/dL Est GFR (CKD-EPI)AfAm (>60 ml/min/1.73 sqM) Est GFR (CKD-EPI)NonAf (>60 ml/min/1.73 sqM) Glucose (74-99) mg/dL Calcium (8.4-10.2) mg/dL Magnesium (1.6-2.3) mg/dL Total Bilirubin (0.2-1.3) mg/dL AST (14-36) U/L ALT (4-34) U/L Alkaline Phosphatase (38-126) U/L Troponin I 0.016 (0.000-0.034) ng/mL Total Protein (6.3-8.2) g/dL Albumin (3.5-5.0) g/dL Disposition <Mayra Gallegos - Last Filed: 10/21/22 16:20> Time of Disposition: 18:21 <Darwin Knight - Last Filed: 10/21/22 18:22> Clinical Impression: Chest pain Disposition: ADMITTED IP TO THIS HOSP Referrals: Marty Moreau MD [Primary Care Provider] - 1-2 days
--- NOTE | 2022-10-21 17:18 | XR ---
EXAMINATION TYPE: XR chest 2V DATE OF EXAM: 10/21/2022 5:13 PM COMPARISON: Chest radiographs from 04/20/2020 TECHNIQUE: XR chest 2V view. CLINICAL INDICATION:Female, 86 years old with history of chest pain; FINDINGS: Lungs/Pleura: Chronic senescent parenchymal change. Blunting of the left costophrenic angle. No pneum othorax. Pulmonary vascularity: Unremarkable. Heart/mediastinum: Cardiomediastinal silhouette is enlarged and stable. Atherosclerotic calcificatio ns are seen in the aorta. Musculoskeletal: No acute osseous pathology. Remote right proximal humerus fracture. IMPRESSION: 1. Cardiomegaly with small left pleural effusion. No overt pulmonary vascular congestion. 2. COPD changes.
[2022-10-21 17:33] LABS: Basophils # (A) 0.1 k/uL (0-0.2); Basophils % (A) 0 %; Eosinophils # (A) 0.2 k/uL (0-0.7); Eosinophils % (A) 2 %; HCT 36.3 % (34.0-46.0); HGB 12.2 gm/dL (11.4-16.0); Lymphocytes # (A) 1.4 k/uL (1.0-4.8); Lymphocytes % (A) 12 %; MCH 31.5 pg (25.0-35.0); MCHC 33.6 g/dL (31.0-37.0); MCV 93.8 fL (80.0-100.0); Mean Platelet Volume 8.8; Monocytes # (A) 0.6 k/uL (0-1.0); Monocytes % (A) 5 %; Neutrophils # (A) 8.8 k/uL (1.3-7.7); Neutrophils % (A) 79 %; Platelet Count 229 k/uL (150-450); RBC 3.87 m/uL (3.80-5.40); RDW 13.9 % (11.5-15.5); WBC 11.1 k/uL (3.8-10.6)
[2022-10-21 17:43] LABS: Partial Thromboplastin Time 22.4 sec (22.0-30.0); Prothrombin Time 10.9 sec (9.0-12.0)
[2022-10-21 17:45] LABS: ALT 17 U/L (4-34); AST 28 U/L (14-36); African American GFR (CKD) 57 (>60 ml/min/1.73 sqM); Albumin 3.6 g/dL (3.5-5.0); Alkaline Phosphatase 95 U/L (38-126); Anion Gap 11 mmol/L; Blood Urea Nitrogen 54 mg/dL (7-17); Calcium 9.4 mg/dL (8.4-10.2); Carbon Dioxide 19 mmol/L (22-30); Chloride 104 mmol/L (98-107); Glucose 204 mg/dL (74-99); Magnesium 1.8 mg/dL (1.6-2.3); Non-African American GFR(CKD) 49 (>60 ml/min/1.73 sqM); Potassium 4.1 mmol/L (3.5-5.1); Sodium 134 mmol/L (137-145); Total Protein 6.3 g/dL (6.3-8.2)
[2022-10-21] MEDS ORDERED: NITROGLYCERIN SL TABS 0.4 MG TAB SUBLINGUAL PRN (18:21)
[2022-10-21 19:52] LABS: Glucose,Whole Blood 210 mg/dL (70-110)
[2022-10-21] MEDS ORDERED: MORPHINE SULFATE 2 MG/ML SYRINGE IVP PRN (20:14)
[2022-10-21] MEDS ORDERED: PRAVASTATIN SODIUM 80 MG TAB PO STA (20:20)
[2022-10-21] MEDS: NITROGLYCERIN OINT 1 INCH/GM PACKET TOPICAL SCH (20:34)
[2022-10-21] MEDS: PRAVASTATIN SODIUM 80 MG TAB PO SCH (20:34)
[2022-10-21] MEDS: INSULIN DETEMIR (LEVEMIR) 100 UNIT/ML SYR SQ SCH (20:39)
[2022-10-21 22:46] LABS: Glucose,Whole Blood 186 mg/dL (70-110)
[2022-10-22] MEDS ORDERED: NITROGLYCERIN OINT 1 INCH/GM PACKET TOPICAL SCH
[2022-10-22] MEDS: NITROGLYCERIN OINT 1 INCH/GM PACKET TOPICAL SCH ×5 (00:15→23:31)
[2022-10-22 05:55] LABS: Glucose,Whole Blood 93 mg/dL (70-110)
[2022-10-22] MEDS: LEVOTHYROXINE 75 MCG TAB PO SCH (05:55)
--- NOTE | 2022-10-22 07:08 | P.HPIM ---
History of Present Illness This is a pleasant 86 years old female with multiple medical problems including CVA/TIA, Diabetes Mellitus, GI Bleed, Hyperlipidemia, Hypertension, Rheumatoid Arthritis , Sleep Apnea/CPAP/BIPAP, hypothyroidism, osteoarthritis, Patient presents because of a breathing difficulty 4 days with little cough and no phlegm Also patient reports chest pain for 4 days about 10/10 in severity although patient was lying in bed looks, comfortable and relaxed. She says that her pain is in the left side of the chest radiating to the left neck, could not specify character for it. Patient is not on oxygen at home. She is not a smoker and alcohol no illicit drugs. Mild periumbilical pain but no vomiting diarrhea. No change in urinary habits. No headache dizziness weakness or numbness. CHEST PAIN SUB STERENAL NO RADIATION +SOB LIPS CYANOSIS NOTED. [ End ] Vitals stable and patient is afebrile, she is saturating 98% on room air showing mild leukocytosis of 11.1. CBC, INR, BMP and liver enzymes are unremarkable. Glucose 210 on admission. Troponins 2 are negative. Chest x-ray: Cardiomegaly with small left pleural effusion. No vascular congestion. COPD changes (when I reviewed the chest x-ray by myself I think there is suspicion of some vascular congestion compared to old chest x-ray) EKG normal sinus rhythm at 94 with first-degree AV block and evidence of LVH and bundle branch block Patient started on her home medication and admitted with cartilage consult. Review of Systems Review of systems CONSTITUTIONAL: No fever, no malaise, no fatigue. HEENT: No recent visual problems or hearing problems. Denied any sore throat. CARDIOVASCULAR: No orthopnea, PND, no palpitations, no syncope. PULMONARY: No shortness of breath, no cough, no hemoptysis. GASTROINTESTINAL: No diarrhea, no nausea, no vomiting, no abdominal pain. Normoactive bowel sounds. NEUROLOGICAL: No headaches, no weakness, no numbness. HEMATOLOGICAL: Denies any bleeding or petechiae. GENITOURINARY: Denies any burning micturition, frequency, or urgency. MUSCULOSKELETAL/RHEUMATOLOGICAL: Denies any joint pain, swelling, or any muscle pain. ENDOCRINE: Denies any polyuria or polydipsia. Past Medical History Past Medical History: CVA/TIA, Diabetes Mellitus, GI Bleed, Hyperlipidemia, Hypertension, Rheumatoid Arthritis (RA), Sleep Apnea/CPAP/BIPAP, Thyroid Disorder Additional Past Medical History / Comment(s): arthritis, murmur, cataracts, obstructive sleep apnea on CPAP. History of Any Multi-Drug Resistant Organisms: MRSA Date of last positivie culture/infection: 08/28/22 MDRO Source:: Urine Past Surgical History: Appendectomy, Cholecystectomy, Hysterectomy, Joint Replacement Additional Past Surgical History / Comment(s): mouth tumor benign, rt arm bone tumor- benign, rt breast biopsy - benign, kidney biopsy for function- no problems, liver biopsy, right partial mastectomy, Rt hip replaced, ulcer caterization to address GI bleed. Past Anesthesia/Blood Transfusion Reactions: Previous Problems w/ Anesthesia Additional Past Anesthesia/Blood Transfusion Reaction / Comment(s): hard to wake up Past Psychological History: No Psychological Hx Reported Additional Psychological History / Comment(s): .Lives independently with the help of her multiple family members including her daughters. Transporter as needed. She is a lifelong nonsmoker with no marijuana, street drug use or alcohol abuse. Does not work outside of the home. No international travel. No experience. She does use a cane for ambulation and has a CPAP. No animal exposures. Smoking Status: Never smoker Past Alcohol Use History: None Reported Past Drug Use History: None Reported - Past Family History Brother(s) Family Medical History: CVA/TIA, Hypertension Additional Family Medical History / Comment(s): She has one brother with history of stroke and hypertension. Sister(s) Additional Family Medical History / Comment(s): She has 2 sisters and both have passed 1 from Alzheimer's dementia and one from brain aneurysm. Daughter(s) Additional Family Medical History / Comment(s): She has 6 children, 4 girls and 2 boys with strong history of hypertension. Mother Family Medical History: Congestive Heart Failure (CHF) Father Family Medical History: Deep Vein Thrombosis (DVT), Liver Disease Additional Family Medical History / Comment(s): Father from alcoholic cirrhosis and had history of hypertension. Medications and Allergies Home Medications Medication Instructions Recorded Confirmed Type Insulin Glargine,Hum.rec.anlog 16 units SQ HS 08/03/15 10/21/22 History [Lantus Solostar Pen] Ezetimibe [Zetia] 10 mg PO DAILY 03/13/16 10/21/22 History Multivit-Min/FA/Lycopen/Lutein 1 tab PO DAILY 03/13/16 10/21/22 History [Centrum Silver Tablet] Pravastatin Sodium [Pravachol] 80 mg PO HS 03/13/16 10/21/22 History Isosorbide Mononitrate ER [Imdur] 60 mg PO DAILY 04/19/20 10/21/22 History Levothyroxine Sodium [Synthroid] 75 mcg PO AC-BRKFST 04/19/20 10/21/22 History Bumetanide [Bumex] 1 mg PO MOWEFR 10/21/22 10/21/22 History Famotidine [Pepcid] 20 mg PO DAILY 10/21/22 10/21/22 History Metoprolol Succinate (ER) [Toprol 50 mg PO DAILY 10/21/22 10/21/22 History Xl] diphenhydrAMINE [Benadryl] 25 mg PO QID PRN 10/21/22 10/21/22 History Allergies Allergy/AdvReac Type Severity Reaction Status Date / Time allantoin [From Orajel] Allergy Swelling Verified 10/21/22 18:02 benzalkonium chloride Allergy Swelling Verified 10/21/22 18:02 [From Orajel] benzocaine [From Orajel] Allergy Swelling Verified 10/21/22 18:02 carbamide peroxide Allergy Swelling Verified 10/21/22 18:02 [From Orajel] codeine Allergy Nausea & Verified 10/21/22 18:02 Vomiting dipyridamole Allergy Unknown Verified 10/21/22 18:02 [From Persantine] enalapril maleate Allergy Swelling Verified 10/21/22 18:02 [From Vasotec] enalaprilat dihydrate Allergy Swelling Verified 10/21/22 18:02 [From Vasotec] furosemide [From Lasix] Allergy Unknown Verified 10/21/22 18:02 glimepiride [From Amaryl] Allergy Unknown Verified 10/21/22 18:02 hydralazine Allergy Unknown Verified 10/21/22 18:02 methotrexate Allergy Swelling Verified 10/21/22 18:02 naproxen [From Naprosyn] Allergy Unknown Verified 10/21/22 18:02 Penicillins Allergy Unknown Verified 10/21/22 18:02 Sulfa (Sulfonamide Allergy Swelling Verified 10/21/22 18:02 Antibiotics) zinc chloride [From Orajel] Allergy Swelling Verified 10/21/22 18:02 acetaminophen [From Ultracet] AdvReac Nausea & Verified 10/21/22 18:02 Vomiting diazepam [From Valium] AdvReac Confusion Verified 10/21/22 18:02 pentazocine lactate AdvReac Hallucinati Verified 10/21/22 18:02 [From Talwin] ons propoxyphene HCl AdvReac Hallucinati Verified 10/21/22 18:02 [From Darvon] ons tramadol HCl [From Ultracet] AdvReac Nausea & Verified 10/21/22 18:02 Vomiting CIPROCINONIDE Allergy Unknown Uncoded 05/10/20 13:26 Physical Exam Vitals: Vital Signs Temp Pulse Resp BP Pulse Ox 10/22/22 05:21 72 17 111/74 10/22/22 04:39 71 112/72 10/22/22 03:27 73 17 114/76 98 10/22/22 02:08 73 19 115/67 10/22/22 01:16 71 19 108/69 10/21/22 22:12 77 17 126/75 94 L 10/21/22 21:11 90 19 149/94 98 10/21/22 19:51 89 18 128/86 97 10/21/22 16:18 97.8 F 95 20 133/79 97 Intake and Output 10/21/22 10/22/22 10/22/22 22:59 06:59 14:59 Other: Weight 48.081 kg GENERAL: The patient is alert and oriented x3, not in any acute distress. Well developed, well nourished. HEENT: Pupils are round and equally reacting to light. EOMI. No scleral icterus. No conjunctival pallor. Normocephalic, atraumatic. No pharyngeal erythema. No thyromegaly. CARDIOVASCULAR: S1 and S2 present. No murmurs, rubs, or gallops. PULMONARY: Chest is clear to auscultation, no wheezing , no crackles. ABDOMEN: Soft, nontender, nondistended, normoactive bowel sounds. No palpable organomegaly. MUSCULOSKELETAL: No joint swelling or deformity. EXTREMITIES: No cyanosis, clubbing, or pedal edema. NEUROLOGICAL: Gross neurological examination did not reveal any focal deficits. SKIN: No rashes. no petechiae. Results CBC & Chem 7: 10/21/22 16:28 10/21/22 16:28 Labs: Abnormal Lab Results - Last 24 Hours (Table) 10/21/22 10/21/22 10/21/22 Range/Units 16:28 16:28 19:50 WBC 11.1 H (3.8-10.6) k/uL Neutrophils # 8.8 H (1.3-7.7) k/uL Sodium 134 L (137-145) mmol/L Carbon Dioxide 19 L (22-30) mmol/L BUN 54 H (7-17) mg/dL Glucose 204 H (74-99) mg/dL POC Glucose (mg/dL) 210 H (70-110) mg/dL 10/21/22 Range/Units 22:44 WBC (3.8-10.6) k/uL Neutrophils # (1.3-7.7) k/uL Sodium (137-145) mmol/L Carbon Dioxide (22-30) mmol/L BUN (7-17) mg/dL Glucose (74-99) mg/dL POC Glucose (mg/dL) 186 H (70-110) mg/dL Assessment and Plan Assessment: Chest pain and dyspnea present on admission suspected secondary to acute CHF Diabetes mellitus Hypertension Hyperlipidemia History of osteoarthritis Hypothyroidism Plan: Continue monitoring with telemetry Cardiology consult Check proBNP Labs and medication were reviewed.. Continue same treatment. Continue with symptomatic treatment. Resume home medication. Monitor lytes and vitals. DVT and GI prophylaxis. Further recommendations depends on the clinical course of the patient DVT prophylaxis: Subcutaneous heparin GI Prophylaxis: Pepcid PT/OT: Pending Prognosis is guarded
[2022-10-22 07:52] LABS: African American GFR (CKD) 48 (>60 ml/min/1.73 sqM); Anion Gap 7 mmol/L; Blood Urea Nitrogen 50 mg/dL (7-17); Calcium 9.4 mg/dL (8.4-10.2); Carbon Dioxide 24 mmol/L (22-30); Chloride 107 mmol/L (98-107); Glucose 81 mg/dL (74-99); Non-African American GFR(CKD) 42 (>60 ml/min/1.73 sqM); Sodium 138 mmol/L (137-145)
[2022-10-22 07:55] LABS: NT-Pro-B-Type Natriuretic Pept 26600 pg/mL
[2022-10-22 09:10] LABS: Glucose,Whole Blood 87 mg/dL (70-110)
[2022-10-22] MEDS: ISOSORBIDE MONONITRATE ER 60 MG TAB.ER.24H PO SCH (10:09)
[2022-10-22] MEDS: METOPROLOL SUCCINATE (ER) 50 MG TAB.ER.24H PO SCH (10:09)
[2022-10-22] MEDS: BUMETANIDE 1 MG TAB PO SCH (10:10)
[2022-10-22] MEDS: FUROSEMIDE 10 MG/ML 2 ML VIAL IV SCH ×2 (12:44→21:00)
--- NOTE | 2022-10-22 15:29 | P.CRDCN ---
History of Present Illness Consult date: 10/22/22 Consult reason: chest pain History of present illness: History of present illness: This is an 86-year-old female patient of Dr. Gaytan with past medical history of coronary artery disease, ischemic cardiomyopathy with known EF of 35%, hypertension, hyperlipidemia, diabetes mellitus2. We have been asked to evaluate the patient for chest pain. Patient states that she felt a fluttering in her chest starting about 3-4 days ago and was gradually worsening. Also had a discomfort in the chest. She finally told her About the discomfort and they made her come in the hospital. Chills have lower extremity edema. No fever or chills, no cough. She states she feels a little better at this time. She denies any previous history of cardiac surgery or stent placement. EKG sinus rhythm with left bundle branch block Chest x-ray: Cardiomegaly with small left pleural effusion. No overt pulmonary vascular congestion. COPD changes WBC 11.1, hemoglobin 12.2, platelet count 229. INR 1. Sodium 138, potassium 4, BUN 50 creatinine 1.17. Blood sugar 87. Troponin negative 3. ProBNP 26,600 Home cardiac medications: Bumex 1 mg Thursday, Zetia 10 mg daily, Imdur 60 mg daily, Toprol-XL 50 mg daily, pravastatin 80 mg at bedtime Cardiac catheterization 1993 normal EF, 50% proximal LAD Echocardiogram 04/2021 revealed EF 37%, mild to moderate MR. Charlene stress test 04/2019 EF 53%, fixed inferior defect. Review Of Systems: At the time of my evaluation: Constitutional: No fever, no chills. No weakness, fatigue or lethargy. EENT: No headache. No dizziness. Lungs: No shortness of breath, cough, no sputum production. No wheezing. Cardiovascular: + chest pain, + lower extremity edema. + palpitations. No lightheadedness or dizziness. No syncopal episodes. Abdominal: No abdominal pain. No nausea, vomiting. No diarrhea. No constipation. No bloody or tarry stools. Genitourinary: No dysuria.. No urinary retention. Musculoskeletal: No myalgias. No muscle weakness, no frequent falls. No back pain. No neck pain. Integumentary: No wounds. No rash. No unusual bruising. Neurologic: No aphasia. No facial droop. No change in mentation. No head injury. No headache. Physical examination: Gen: This is a 89-year-old female. She is resting on ER stretcher and appears to be comfortable at rest. VS: reviewed 137/80, heart rate 78, pulse ox 96% on 2 L, afebrile. HEENT: Head is atraumatic, normocephalic. Pupils equal, round. Sclerae is anicteric. NECK: Supple. No JVD. LUNGS: Clear to auscultation. No wheezes or rhonchi. No intercostal retractions. HEART: Regular rate and rhythm. 2/6 systolic ejection murmur at the base. ABDOMEN: Soft No tenderness. EXTREMITIES: 1+ pedal edema. No calf tenderness. NEUROLOGICAL: Patient is awake, alert and oriented x3. Assessment: Chest pain, acute coronary syndrome ruled out Acute systolic heart failure History of coronary artery disease on previous catheterization Ischemic cardiomyopathy with EF 35% Hypertension Hyperlipidemia Diabetes mellitus type 2 Plan: Resume patient's home cardiac medications Start patient on IV Lasix 20 mg every 12 hours Repeat troponins 2 Obtain 2-D echocardiogram and Doppler study to assess cardiac structure and fun ction Further recommendations to follow based upon clinical course Thank you kindly for this consultation. Nurse practitioner note has been reviewed, I agree with documented findings and plan of care. Patient was seen and examined. Past Medical History Past Medical History: CVA/TIA, Diabetes Mellitus, GI Bleed, Hyperlipidemia, Hypertension, Rheumatoid Arthritis (RA), Sleep Apnea/CPAP/BIPAP, Thyroid Disorder Additional Past Medical History / Comment(s): arthritis, murmur, cataracts, obstructive sleep apnea on CPAP. History of Any Multi-Drug Resistant Organisms: MRSA Date of last positivie culture/infection: 08/28/22 MDRO Source:: Urine Past Surgical History: Appendectomy, Cholecystectomy, Hysterectomy, Joint Replacement Additional Past Surgical History / Comment(s): mouth tumor benign, rt arm bone t umor- benign, rt breast biopsy - benign, kidney biopsy for function- no problems, liver biopsy, right partial mastectomy, Rt hip replaced, ulcer caterization to address GI bleed. Past Anesthesia/Blood Transfusion Reactions: Previous Problems w/ Anesthesia Additional Past Anesthesia/Blood Transfusion Reaction / Comment(s): hard to wake up Past Psychological History: No Psychological Hx Reported Additional Psychological History / Comment(s): .Lives independently with the help of her multiple family members including her daughters. Transporter as needed. She is a lifelong nonsmoker with no marijuana, street drug use or alcohol abuse. Does not work outside of the home. No international travel. No experience. She does use a cane for ambulation and has a CPAP. No animal exposures. Smoking Status: Never smoker Past Alcohol Use History: None Reported Past Drug Use History: None Reported - Past Family History Brother(s) Family Medical History: CVA/TIA, Hypertension Additional Family Medical History / Comment(s): She has one brother with history of stroke and hypertension. Sister(s) Additional Family Medical History / Comment(s): She has 2 sisters and both have passed 1 from Alzheimer's dementia and one from brain aneurysm. Daughter(s) Additional Family Medical History / Comment(s): She has 6 children, 4 girls and 2 boys with strong history of hypertension. Mother Family Medical History: Congestive Heart Failure (CHF) Father Family Medical History: Deep Vein Thrombosis (DVT), Liver Disease Additional Family Medical History / Comment(s): Father from alcoholic cirrhosis and had history of hypertension. Medications and Allergies Home Medications Medication Instructions Recorded Confirmed Type Insulin Glargine,Hum.rec.anlog 16 units SQ 08/03/15 10/21/22 History [Lantus Solostar Pen] Ezetimibe [Zetia] 10 mg PO DAILY 03/13/16 10/21/22 History Multivit-Min/FA/Lycopen/Lutein 1 tab PO DAILY 03/13/16 10/21/22 History [Centrum Silver Tablet] Pravastatin Sodium [Pravachol] 80 mg PO HS 03/13/16 10/21/22 History Isosorbide Mononitrate ER [Imdur] 60 mg PO DAILY 04/19/20 10/21/22 History Levothyroxine Sodium [Synthroid] 75 mcg PO -BRKFST 04/19/20 10/21/22 History Bumetanide [Bumex] 1 mg PO MOWEFR 10/21/22 10/21/22 History Famotidine [Pepcid] 20 mg PO DAILY 10/21/22 10/21/22 History Metoprolol Succinate (ER) [Toprol 50 mg PO DAILY 10/21/22 10/21/22 History Xl] diphenhydrAMINE [Benadryl] 25 mg PO QID PRN 10/21/22 10/21/22 History Allergies Allergy/AdvReac Type Severity Reaction Status Date / Time allantoin [From Orajel] Allergy Swelling Verified 10/21/22 18:02 benzalkonium chloride Allergy Swelling Verified 10/21/22 18:02 [From Orajel] benzocaine [From Orajel] Allergy Swelling Verified 10/21/22 18:02 carbamide peroxide Allergy Swelling Verified 10/21/22 18:02 [From Orajel] codeine Allergy Nausea & Verified 10/21/22 18:02 Vomiting dipyridamole Allergy Unknown Verified 10/21/22 18:02 [From Persantine] enalapril maleate Allergy Swelling Verified 10/21/22 18:02 [From Vasotec] enalaprilat dihydrate Allergy Swelling Verified 10/21/22 18:02 [From Vasotec] furosemide [From Lasix] Allergy Unknown Verified 10/21/22 18:02 glimepiride [From Amaryl] Allergy Unknown Verified 10/21/22 18:02 hydralazine Allergy Unknown Verified 10/21/22 18:02 methotrexate Allergy Swelling Verified 10/21/22 18:02 naproxen [From Naprosyn] Allergy Unknown Verified 10/21/22 18:02 Penicillins Allergy Unknown Verified 10/21/22 18:02 Sulfa (Sulfonamide Allergy Swelling Verified 10/21/22 18:02 Antibiotics) zinc chloride [From Orajel] Allergy Swelling Verified 10/21/22 18:02 acetaminophen [From Ultracet] AdvReac Nausea & Verified 10/21/22 18:02 Vomiting diazepam [From Valium] AdvReac Confusion Verified 10/21/22 18:02 pentazocine lactate AdvReac Hallucinati Verified 10/21/22 18:02 [From Talwin] ons propoxyphene HCl AdvReac Hallucinati Verified 10/21/22 18:02 [From Darvon] ons tramadol HCl [From Ultracet] AdvReac Nausea & Verified 10/21/22 18:02 Vomiting CIPROCINONIDE Allergy Unknown Uncoded 05/10/20 13:26 Physical Exam Vitals: Vital Signs Temp Pulse Resp BP Pulse Ox 08/16/23 09:10 78 16 137/80 96 10/22/22 08:05 77 17 130/83 96 10/22/22 07:21 97.8 F 73 16 125/72 97 10/22/22 05:21 72 17 111/74 10/22/22 04:39 71 112/72 10/22/22 03:27 73 17 114/76 98 10/22/22 02:08 73 19 115/67 10/22/22 01:16 71 19 108/69 10/21/22 22:12 77 17 126/75 94 L 10/21/22 21:11 90 19 149/94 98 10/21/22 19:51 89 18 128/86 97 10/21/22 16:18 97.8 F 95 20 133/79 97 Intake and Output 10/21/22 10/22/22 10/22/22 22:59 06:59 14:59 Other: Weight 48.081 kg Results 10/21/22 16:28 10/22/22 06:50 Cardiac Enzymes 10/21/22 10/21/22 10/21/22 Range/Units 16:28 16:28 21:51 AST 28 (14-36) U/L Troponin I 0.016 0.024 (0.000-0.034) ng/mL 10/22/22 Range/Units 00:38 AST (14-36) U/L Troponin I 0.030 (0.000-0.034) ng/mL Coagulation 10/21/22 Range/Units 16:28 PT 10.9 (9.0-12.0) sec APTT 22.4 (22.0-30.0) sec CBC 10/21/22 Range/Units 16:28 WBC 11.1 H (3.8-10.6) k/uL RBC 3.87 (3.80-5.40) m/uL Hgb 12.2 (11.4-16.0) gm/dL Hct 36.3 (34.0-46.0) % Plt Count 229 (150-450) k/uL Comprehensive Metabolic Panel 10/21/22 10/22/22 Range/Units 16:28 06:50 Sodium 134 L 138 (137-145) mmol/L Potassium 4.1 4.0 (3.5-5.1) mmol/L Chloride 104 107 (98-107) mmol/L Carbon Dioxide 19 L 24 (22-30) mmol/L BUN 54 H 50 H (7-17) mg/dL Creatinine 1.03 1.17 H (0.52-1.04) mg/dL Glucose 204 H 81 (74-99) mg/dL Calcium 9.4 9.4 (8.4-10.2) mg/dL AST 28 (14-36) U/L ALT 17 (4-34) U/L Alkaline Phosphatase 95 (38-126) U/L Total Protein 6.3 (6.3-8.2) g/dL Albumin 3.6 (3.5-5.0) g/dL Current Medications Generic Name Dose Route Start Last Admin Trade Name Freq PRN Reason Stop Dose Admin Insulin Detemir 10 unit 10/21/22 21:00 10/21/22 20:39 Insulin Detemir (Levemir) 100 Unit/Ml Syr SQ 10 unit HS [facility] Administration Levothyroxine Sodium 75 mcg 10/22/22 06:30 10/22/22 05:55 Levothyroxine 75 Mcg Tab PO 75 mcg DAILY@0630 [facility] Administration Morphine Sulfate 2 mg 10/21/22 20:14 Morphine Sulfate 2 Mg/Ml Syringe IVP Q6HR PRN Pain/Discomfort Nitroglycerin 0.4 mg 10/21/22 18:21 Nitroglycerin Sl Tabs 0.4 Mg Tab SUBLINGUAL Q5M PRN Chest Pain Nitroglycerin 1 inch 10/21/22 20:22 10/22/22 05:55 Nitroglycerin Oint 1 Inch/Gm Packet TOPICAL 1 inch Q6HR KEVIN Administration Pravastatin Sodium 80 mg 10/21/22 21:00 10/21/22 20:34 Pravastatin Sodium 80 Mg Tab PO 80 mg HS [facility] Administration Intake and Output 10/21/22 10/22/22 10/22/22 22:59 06:59 14:59 Other: Weight 48.081 kg 10/21/22 16:28 10/22/22 06:50
[2022-10-22 16:21] LABS: Chol/HDL Ratio 2.64 Ratio; LDL Cholesterol,Calculated 53.7 mg/dL (0.0-131.0)
[2022-10-22 16:44] LABS: Glucose,Whole Blood 221 mg/dL (70-110)
--- NOTE | 2022-10-22 17:05 | CA ---
Transthoracic Echo Report Name: Lesley Banegas Age: 86 Gender: F : 1935 Exam Date: 10/22/2022 11:35 Exam Location: [facility] Ht (in): 61 Wt (lb): 106 Ordering Physician: Kelsea Benitez Attending/Referring Phys: [id number], Eli Lease Operator Jason Coombs Procedure CPT: Indications: LVF Cardiac Hx: Technical Quality: Fair Contrast 1: Total Dose (mL): Contrast 2: Total Dose (mL): MEASUREMENTS (Male / Female) Normal Values 2D ECHO LV Diastolic Diameter PLAX 5.2 cm 4.2 - 5.9 / 3.9 - 5.3 cm LV Systolic Diameter PLAX 4.6 cm IVS Diastolic Thickness 0.6 cm 0.6 - 1.0 / 0.6 - 0.9 cm LVPW Diastolic Thickness 1.0 cm 0.6 - 1.0 / 0.6 - 0.9 cm LV Relative Wall Thickness 0.3 RV Internal Dim ED PLAX 2.7 cm LVOT Diameter 1.9 cm Aortic Root Diameter 2.4 cm LA Systolic Diameter LX 3.0 cm 3.0 - 4.0 / 2.7 - 3.8 cm LV Diastolic Volume MOD BP 71.1 cm??? 67 - 155 / 56 - 104 cm??? LV Systolic Volume MOD BP 55.8 cm??? 22 - 58 / 19 - 49 cm??? LV Ejection Fraction MOD BP 21.5 % >= 55 % LV Cardiac Index MOD BP 893.1 cm???/min???m??? LV Diastolic Volume MOD 4C 70.4 cm??? LV Systolic Volume MOD 4C 62.6 cm??? LV Ejection Fraction MOD 4C 11.0 % LV Cardiac Index MOD 4C 451.7 cm???/min???m??? LV Diastolic Length 4C 7.4 cm LV Systolic Length 4C 7.0 cm LV Diastolic Volume MOD 2C 68.7 cm??? LV Systolic Volume MOD 2C 48.8 cm??? LV Ejection Fraction MOD 2C 29.0 % LV Cardiac Index MOD 2C 1162.8 cm???/min???m??? LV Diastolic Length 2C 7.0 cm LV Systolic Length 2C 7.2 cm LA Volume 39.8 cm??? 18 - 58 / 22 - 52 cm??? Ascending Aorta Diameter 2.7 cm DOPPLER AV Peak Velocity 169.8 cm/s AV Peak Gradient 11.5 mmHg AV Mean Velocity 131.6 cm/s AV Mean Gradient 7.8 mmHg AV Velocity Time Integral 37.4 cm AI Peak Velocity 389.3 cm/s AI Peak Gradient 60.6 mmHg AI Pressure Half Time 588.2 ms LVOT Peak Velocity 49.4 cm/s LVOT Peak Gradient 1.0 mmHg AV Area Cont Eq pk 0.8 cm??? MV Peak Velocity 130.1 cm/s MV Peak Gradient 6.8 mmHg MV Mean Velocity 53.3 cm/s MV Mean Gradient 1.8 mmHg MV Velocity Time Integral 32.7 cm MR Peak Velocity 507.3 cm/s MR Peak Gradient 102.9 mmHg Mitral E Point Velocity 127.9 cm/s Mitral A Point Velocity 79.9 cm/s Mitral E to A Ratio 1.6 MV Deceleration Time 157.8 ms MV E' Velocity 2.9 cm/s Mitral E to MV E' Ratio 44.3 TR Peak Velocity 241.0 cm/s TR Peak Gradient 23.2 mmHg Right Ventricular Systolic Press 28.4 mmHg PV Peak Velocity 87.5 cm/s PV Peak Gradient 3.1 mmHg FINDINGS Left Ventricle Mildly increased left ventricular systolic volume. Severely decreased left ventricular ejection fraction.left ventricular ejection fraction is estimated at _15-20%. Right Ventricle Normal right ventricular size. RVSP= 33mmhg Right Atrium Normal right atrial size. Left Atrium Normal left atrial size. LA volume index= 28ml/m2 Mitral Valve Mild mitral annular calcification. Aortic Valve Moderate AV calcification. Estimated AV area= 0.8cm2. Mild to Moderate AI Tricuspid Valve Structurally normal tricuspid valve. Mild TR. Pulmonic Valve Pulmonic valve not well visualized. Mild to moderate PI. Pericardium Small to moderate anterior pericardial effusion. Trace posterior pericardial effusion. Aorta Normal size aortic root. CONCLUSIONS Severe LV systolic dysfunction with an ejection fraction of 50-20% Mild to moderate aortic regurgitation Calcified aortic valve with the restricted leaflet mobility we are probably underestimating the aortic stenosis Mild tricuspid regurgitation Previewed by: Dr. Guicho Richardson MD (Electronically Signed) Final Date: 22 October 2022 17:04
[2022-10-22 20:58] LABS: Glucose,Whole Blood 331 mg/dL (70-110)
[2022-10-22] MEDS: PRAVASTATIN SODIUM 80 MG TAB PO SCH (20:58)
[2022-10-22] MEDS: INSULIN DETEMIR (LEVEMIR) 100 UNIT/ML SYR SQ SCH (20:58)
[2022-10-23] MEDS: NITROGLYCERIN OINT 1 INCH/GM PACKET TOPICAL SCH (06:00)
[2022-10-23 06:01] LABS: Glucose,Whole Blood 107 mg/dL (70-110)
[2022-10-23] MEDS: LEVOTHYROXINE 75 MCG TAB PO SCH (06:31)
[2022-10-23] MEDS ORDERED: LEVOTHYROXINE 75 MCG TAB PO SCH (07:30)
[2022-10-23] MEDS ORDERED: FAMOTIDINE 20 MG/2 ML VIAL IV SCH (09:00)
[2022-10-23] MEDS: FUROSEMIDE 10 MG/ML 2 ML VIAL IV SCH ×2 (10:15→19:56)
[2022-10-23] MEDS: ISOSORBIDE MONONITRATE ER 60 MG TAB.ER.24H PO SCH (10:15)
[2022-10-23] MEDS: FAMOTIDINE 20 MG TAB PO SCH (10:15)
[2022-10-23] MEDS: METOPROLOL SUCCINATE (ER) 50 MG TAB.ER.24H PO SCH (10:16)
[2022-10-23] MEDS: EZETIMIBE 10 MG TAB PO SCH (10:16)
[2022-10-23] MEDS: HEPARIN SODIUM,PORCINE 5,000 UNIT/ML 1 ML VIAL SQ SCH ×2 (10:16→19:57)
--- NOTE | 2022-10-23 10:22 | P.PN ---
Subjective HISTORY OF PRESENT ILLNESS: This is an 86-year-old female patient of Dr. Gaytan with past medical history of coronary artery disease, ischemic cardiomyopathy with known EF of 35%, hypertension, hyperlipidemia, diabetes mellitus2. We have been asked to evaluate the patient for chest pain. Patient states that she felt a fluttering in her chest starting about 3-4 days ago and was gradually worsening. Also had a discomfort in the chest. She finally told her About the discomfort and they made her come in the hospital. Chills have lower extremity edema. No fever or chills, no cough. She states she feels a little better at this time. She denies any previous history of cardiac surgery or stent placement. EKG sinus rhythm with left bundle branch block Chest x-ray: Cardiomegaly with small left pleural effusion. No overt pulmonary vascular congestion. COPD changes WBC 11.1, hemoglobin 12.2, platelet count 229. INR 1. Sodium 138, potassium 4, BUN 50 creatinine 1.17. Blood sugar 87. Troponin negative 3. ProBNP 26,600 Home cardiac medications: Bumex 1 mg Thursday, Zetia 10 mg daily, Imdur 60 mg daily, Toprol-XL 50 mg daily, pravastatin 80 mg at bedtime Cardiac catheterization 1993 normal EF, 50% proximal LAD Echocardiogram 04/2021 revealed EF 37%, mild to moderate MR. Óscariscan stress test 04/2019 EF 53%, fixed inferior defect. 10/23/2022 Patient examined this morning at the bedside. Patient denies chest pain or pressure. She denies shortness of breath. She remains on IV Lasix. Labs from this morning are currently pending. Echocardiogram completed revealing ejection fraction 15-20%, mild to moderate aortic regurgitation, and mild tricuspid regurgitation. PHYSICAL EXAM: VITAL SIGNS: Reviewed. GENERAL: Well-developed in no acute distress. NECK: Supple. No JVD or thyromegaly LUNGS: Respirations even and unlabored. Lungs essentially clear to auscultation bilaterally. HEART: Regular rate and rhythm. S1 and S2 heard. Systolic murmur noted EXTREMITIES: Normal range of motion. No clubbing or cyanosis. Peripheral pulses intact. No lower extremity edema ASSESSMENT: Chest pain, acute coronary syndrome ruled out Acute on chronic heart failure with reduced EF Coronary artery disease with 50% proximal LAD lesion, no previous stenting Nonischemic cardiomyopathy with EF 35%, now 15-20% Hypertension Hyperlipidemia Diabetes mellitus type 2 PLAN: Continue current cardiac medications Continue IV Lasix Daily weights, accurate I&O, monitor kidney function Patient with systolic blood pressures in the low 100s this morning. Patient would benefit from BOLA/ARB secondary to her cardiomyopathy. However we'll hold at this time secondary to her blood pressures. This may be reevaluated on an outpatient basis. Further recommendations pending patient's course Nurse practitioner note has been reviewed by physician. Signing provider agrees with the documented findings, assessment, and plan of care. Objective - Vital Signs Vital signs: Vital Signs Temp 97.6 F 10/23/22 07:00 Pulse 71 10/23/22 07:00 Resp 16 10/23/22 07:00 BP 106/64 10/23/22 07:00 Pulse Ox 97 10/23/22 08:20 FiO2 Intake & Output 10/22/22 10/23/22 10/23/22 18:59 06:59 18:59 Output Total 550 Balance -550 Weight 48.081 kg Output: Urine 550 Other: Voiding Method External Catheter External Catheter - Labs CBC & Chem 7: 10/21/22 16:28 10/22/22 06:50 Labs: Abnormal Lab Results - Last 24 Hours (Table) 10/22/22 10/22/22 Range/Units 16:42 20:57 POC Glucose (mg/dL) 221 H 331 H (70-110) mg/dL
[2022-10-23 11:15] LABS: BUN/Creat Ratio 36.31 Ratio (12.00-20.00); Blood Urea Nitrogen 47.2 mg/dL (9.0-27.0); Calcium 9.4 mg/dL (8.7-10.3); Carbon Dioxide 25.7 mmol/L (21.6-31.8); Chloride 106 mmol/L (96-109); Glucose 101 mg/dL (70-110); Potassium 3.7 mmol/L (3.5-5.5); Sodium 145 mmol/L (135-145)
[2022-10-23 11:24] LABS: Basophils # (A) 0.07 X 10*3/uL (0.00-0.10); Basophils % (A) 0.7 %; Eosinophils # (A) 1.03 X 10*3/uL (0.04-0.35); HCT 37.1 % (37.2-46.3); HGB 11.7 d/dL (12.0-15.0); Lymphocytes # (A) 1.13 X 10*3/uL (0.90-5.00); Lymphocytes % (A) 12.1 %; MCH 30.2 pg (27.0-32.0); MCHC 31.5 d/dL (32.0-37.0); MCV 95.6 FL (80.0-97.0); Mean Platelet Volume 11.9 FL (9.5-12.2); Monocytes # (A) 0.92 X 10*3/uL (0.20-1.00); Monocytes % (A) 9.8 %; NRBC Per 100 WBC 0 X 10*3/uL (0.00-0.01); Neutrophils # (A) 6.18 X 10*3/uL (1.80-7.70); Neutrophils % (A) 66.1 %; Platelet Count 231 X 10*3/uL (140-440); RBC 3.88 X 10*6/uL (4.10-5.20); RDW 13.9 % (11.5-14.5); WBC 9.36 X 10*3/uL (4.50-10.00)
[2022-10-23 12:17] LABS: Glucose,Whole Blood 175 mg/dL (70-110)
[2022-10-23] MEDS: ASPIRIN 81 MG PO SCH (12:41)
[2022-10-23 17:06] LABS: Glucose,Whole Blood 145 mg/dL (70-110)
[2022-10-23] MEDS: PRAVASTATIN SODIUM 80 MG TAB PO SCH (19:57)
[2022-10-23] MEDS ORDERED: ONDANSETRON 4 MG/2 ML VIAL IVP PRN (20:22)
[2022-10-23 20:39] LABS: Glucose,Whole Blood 152 mg/dL (70-110)
--- NOTE | 2022-10-23 21:24 | P.PN ---
Subjective This is a pleasant 86 years old female with multiple medical problems including CVA/TIA, Diabetes Mellitus, GI Bleed, Hyperlipidemia, Hypertension, Rheumatoid Arthritis , Sleep Apnea/CPAP/BIPAP, hypothyroidism, osteoarthritis, Patient presents because of a breathing difficulty 4 days with little cough and no phlegm Also patient reports chest pain for 4 days about 10/10 in severity although patient was lying in bed looks, comfortable and relaxed. She says that her pain is in the left side of the chest radiating to the left neck, could not specify character for it. Patient is not on oxygen at home. She is not a smoker and alcohol no illicit drugs. Mild periumbilical pain but no vomiting diarrhea. No change in urinary habits. No headache dizziness weakness or numbness. CHEST PAIN SUB STERENAL NO RADIATION +SOB LIPS CYANOSIS NOTED. [ End ] Vitals stable and patient is afebrile, she is saturating 98% on room air showing mild leukocytosis of 11.1. CBC, INR, BMP and liver enzymes are unremarkable. Glucose 210 on admission. Troponins 2 are negative. Chest x-ray: Cardiomegaly with small left pleural effusion. No vascular congestion. COPD changes (when I reviewed the chest x-ray by myself I think there is suspicion of some vascular congestion compared to old chest x-ray) EKG normal sinus rhythm at 94 with first-degree AV block and evidence of LVH and bundle branch block Patient started on her home medication and admitted with cartilage consult. 10/23/2022 Patient presents with acute systolic CHF, ejection fraction 15-20% Currently on IV Lasix 20 mg twice daily which will be continued despite systolic blood pressure in 90s to 100 as benefits more than risk. Aspirin is also provided by campus manager She has evidence of urinary retention status post trach cath, creatinine is slightly up today 1.3. She was more lethargic and sleepy through the morning after she got 1 dose of morphine for her generalized body ache. We will discontinue morphine but small dose Ultram (patient is ALLERGIC to Tylenol, NSAIDs are contraindicated due to poor kidney function and heart disease). Today daughter and son-in-law are bedside and all questions are answered. I talked to the daughter patient will need follow-up outpatient will be discharged with Dr. Richardson in one week and this B Dr. Moreau in one week and she agrees. Also patient will be evaluated for home care versus [facility] Active Medications Generic Name Dose Route Start Last Admin Trade Name Eliotq PRN Reason Stop Dose Admin Aspirin 81 mg 10/23/22 10:30 10/23/22 12:41 Aspirin 81 Mg PO 81 mg DAILY KEVIN Administration Bumetanide 1 mg 10/22/22 10:00 10/22/22 10:10 Bumetanide 1 Mg Tab PO 1 mg MOWEFR KEVIN Administration Ezetimibe 10 mg 10/23/22 09:00 10/23/22 10:16 Ezetimibe 10 Mg Tab PO 10 mg DAILY KEVIN Administration Famotidine 20 mg 10/23/22 09:00 10/23/22 10:15 Famotidine 20 Mg Tab PO 20 mg DAILY KEVIN Administration Furosemide 20 mg 10/22/22 11:30 10/23/22 19:56 Furosemide 10 Mg/Ml 2 Ml Vial IV 20 mg Q12HR KEVIN Administration Heparin Sodium (Porcine) 5,000 unit 10/23/22 09:00 10/23/22 19:57 Heparin Sodium,Porcine 5,000 Unit/Ml 1 Ml Vial SQ 5,000 unit Q12HR KEVIN Administration Insulin Detemir 10 unit 10/21/22 21:00 10/22/22 20:58 Insulin Detemir (Levemir) 100 Unit/Ml Syr SQ 10 unit HS [facility] Administration Isosorbide Mononitrate 60 mg 10/22/22 10:00 10/23/22 10:15 Isosorbide Mononitrate Er 60 Mg Tab.Er.24h PO 60 mg DAILY EKVIN Administration Levothyroxine Sodium 75 mcg 10/22/22 06:30 10/23/22 06:31 Levothyroxine 75 Mcg Tab PO 75 mcg DAILY@0630 KEVIN Administration Metoprolol Succinate 50 mg 10/22/22 10:00 10/23/22 10:16 Metoprolol Succinate (Er) 50 Mg Tab.Er.24h PO 50 mg DAILY KEVIN Administration Nitroglycerin 0.4 mg 10/21/22 18:21 Nitroglycerin Sl Tabs 0.4 Mg Tab SUBLINGUAL Q5M PRN Chest Pain Ondansetron HCl 4 mg 10/23/22 20:22 Ondansetron 4 Mg/2 Ml Vial IVP Q6HR PRN Nausea And Vomiting Pravastatin Sodium 80 mg 10/21/22 21:00 10/23/22 19:57 Pravastatin Sodium 80 Mg Tab PO 80 mg HS KEVIN Administration Tramadol HCl 25 mg 10/23/22 13:31 Tramadol 50 Mg Tab PO QID PRN Pain Objective - Vital Signs Vital signs: Vital Signs Temp 97.6 F 10/23/22 19:01 Pulse 75 10/23/22 19:01 Resp 16 10/23/22 19:01 BP 119/66 10/23/22 19:01 Pulse Ox 99 10/23/22 20:50 FiO2 Intake & Output 10/23/22 10/23/22 10/24/22 06:59 18:59 06:59 Intake Total 298 Output Total 550 1618 Balance -550 -1320 Intake: Oral 298 Output: Urine 550 800 Straight 550 Post Void Residual 818 Other: Voiding Method External Catheter External Catheter - Exam -GENERAL: The patient is alert and oriented x3, sleepy, not in any acute distress. Well developed, well nourished. HEENT: Pupils are round and equally reacting to light. EOMI. No scleral icterus. No conjunctival pallor. Normocephalic, atraumatic. No pharyngeal erythema. No thyromegaly. CARDIOVASCULAR: S1 and S2 present. No murmurs, rubs, or gallops. -PULMONARY: Chest is clear to auscultation, no wheezing , no crackles. Mild tachypnea ABDOMEN: Soft, nontender, nondistended, normoactive bowel sounds. No palpable organomegaly. MUSCULOSKELETAL: No joint swelling or deformity. EXTREMITIES: No cyanosis, clubbing, or pedal edema. NEUROLOGICAL: Gross neurological examination did not reveal any focal deficits. SKIN: No rashes. no petechiae. - Labs CBC & Chem 7: 10/23/22 06:05 10/23/22 06:05 Labs: Abnormal Lab Results - Last 24 Hours (Table) 10/23/22 10/23/22 10/23/22 Range/Units 06:05 06:05 12:16 RBC 3.88 L (4.10-5.20) X 10*6/uL Hgb 11.7 L (12.0-15.0) d/dL Hct 37.1 L (37.2-46.3) % MCHC 31.5 L (32.0-37.0) d/dL Eosinophils # 1.03 H (0.04-0.35) X 10*3/uL Anion Gap 13.30 H (4.00-12.00) mmol/L BUN 47.2 H (9.0-27.0) mg/dL Est GFR (CKD-EPI) 40 L (>=60) BUN/Creatinine Ratio 36.31 H (12.00-20.00) Ratio POC Glucose (mg/dL) 175 H (70-110) mg/dL 10/23/22 10/23/22 Range/Units 17:05 20:37 RBC (4.10-5.20) X 10*6/uL Hgb (12.0-15.0) d/dL Hct (37.2-46.3) % MCHC (32.0-37.0) d/dL Eosinophils # (0.04-0.35) X 10*3/uL Anion Gap (4.00-12.00) mmol/L BUN (9.0-27.0) mg/dL Est GFR (CKD-EPI) (>=60) BUN/Creatinine Ratio (12.00-20.00) Ratio POC Glucose (mg/dL) 145 H 152 H (70-110) mg/dL Assessment and Plan Assessment: Chest pain and dyspnea present on admission suspected secondary to acute systolic CHF, ejection fraction 15-20% Acute urinary retention status post straight cath Generalized body ache Diabetes mellitus Hypertension Hyperlipidemia History of osteoarthritis Hypothyroidism Plan: Continue monitoring with telemetry Cardiology consult Continue with IV Lasix and monitor creatinine Continue with history/Santillan we will try to avoid Flomax for lower blood pressure Change of the morphine and Toradol Ultram and small dose Labs and medication were reviewed.. Continue same treatment. Continue with symptomatic treatment. Resume home medication. Monitor lytes and vitals. DVT and GI prophylaxis. Further recommendations depends on the clinical course of the patient DVT prophylaxis: Subcutaneous heparin GI Prophylaxis: Pepcid PT/OT: Pending Prognosis is guarded
[2022-10-23] MEDS: INSULIN DETEMIR (LEVEMIR) 100 UNIT/ML SYR SQ SCH (22:13)
[2022-10-24 06:23] LABS: Glucose,Whole Blood 152 mg/dL (70-110)
[2022-10-24] MEDS: LEVOTHYROXINE 75 MCG TAB PO SCH (06:33)
[2022-10-24] MEDS: EZETIMIBE 10 MG TAB PO SCH (09:10)
[2022-10-24] MEDS: BUMETANIDE 1 MG TAB PO SCH (09:10)
[2022-10-24] MEDS: ASPIRIN 81 MG PO SCH (09:10)
[2022-10-24] MEDS: METOPROLOL SUCCINATE (ER) 50 MG TAB.ER.24H PO SCH (09:10)
[2022-10-24] MEDS: HEPARIN SODIUM,PORCINE 5,000 UNIT/ML 1 ML VIAL SQ SCH ×2 (09:10→20:37)
[2022-10-24] MEDS: ISOSORBIDE MONONITRATE ER 60 MG TAB.ER.24H PO SCH (09:10)
[2022-10-24] MEDS: FAMOTIDINE 20 MG TAB PO SCH (09:10)
--- NOTE | 2022-10-24 09:18 | P.PN ---
Subjective HISTORY OF PRESENT ILLNESS: This is an 86-year-old female patient of Dr. Gaytan with past medical history of coronary artery disease, ischemic cardiomyopathy with known EF of 35%, hypertension, hyperlipidemia, diabetes mellitus2. We have been asked to evaluate the patient for chest pain. Patient states that she felt a fluttering in her chest starting about 3-4 days ago and was gradually worsening. Also had a discomfort in the chest. She finally told her About the discomfort and they made her come in the hospital. Chills have lower extremity edema. No fever or chills, no cough. She states she feels a little better at this time. She denies any previous history of cardiac surgery or stent placement. EKG sinus rhythm with left bundle branch block Chest x-ray: Cardiomegaly with small left pleural effusion. No overt pulmonary vascular congestion. COPD changes WBC 11.1, hemoglobin 12.2, platelet count 229. INR 1. Sodium 138, potassium 4, BUN 50 creatinine 1.17. Blood sugar 87. Troponin negative 3. ProBNP 26,600 Home cardiac medications: Bumex 1 mg Thursday, Zetia 10 mg daily, Imdur 60 mg daily, Toprol-XL 50 mg daily, pravastatin 80 mg at bedtime Cardiac catheterization 1993 normal EF, 50% proximal LAD Echocardiogram 04/2021 revealed EF 37%, mild to moderate MR. Óscariscan stress test 04/2019 EF 53%, fixed inferior defect. 10/23/2022 Patient examined this morning at the bedside. Patient denies chest pain or pressure. She denies shortness of breath. She remains on IV Lasix. Labs from this morning are currently pending. Echocardiogram completed revealing ejection fraction 15-20%, mild to moderate aortic regurgitation, and mild tricuspid regurgitation. 10/24/2022 Patient examined this morning at the bedside. Patient denies chest pain or pressure. She denies shortness of breath. She remains on IV Lasix. Vital signs are stable. PHYSICAL EXAM: VITAL SIGNS: Reviewed. GENERAL: Well-developed in no acute distress. NECK: Supple. No JVD or thyromegaly LUNGS: Respirations even and unlabored. Lungs essentially clear to auscultation bilaterally. HEART: Regular rate and rhythm. S1 and S2 heard. Systolic murmur noted EXTREMITIES: Normal range of motion. No clubbing or cyanosis. Peripheral pulses intact. No lower extremity edema ASSESSMENT: Chest pain, acute coronary syndrome ruled out Acute on chronic heart failure with reduced EF Coronary artery disease with 50% proximal LAD lesion, no previous stenting Nonischemic cardiomyopathy with EF 35%, now 15-20% Hypertension Hyperlipidemia Diabetes mellitus type 2 PLAN: Continue current cardiac medications Discontinue IV Lasix Resume oral diuretics Patient may be discharged home today from a cardiac standpoint We will sign off. Please reconsult if needed. Nurse practitioner note has been reviewed by physician. Signing provider agrees with the documented findings, assessment, and plan of care. Objective - Vital Signs Vital signs: Vital Signs Temp 98.2 F 10/24/22 07:35 Pulse 70 10/24/22 07:35 Resp 16 10/24/22 07:35 BP 127/70 10/24/22 07:35 Pulse Ox 97 10/24/22 08:53 FiO2 Intake & Output 10/23/22 10/24/22 10/24/22 18:59 06:59 18:59 Intake Total 298 Output Total 1618 100 Balance -1320 -100 Intake: Oral 298 Output: Urine 800 100 Straight 550 Post Void Residual 818 Other: Voiding Method External Catheter External Catheter - Labs CBC & Chem 7: 10/23/22 06:05 10/23/22 06:05 Labs: Abnormal Lab Results - Last 24 Hours (Table) 10/23/22 10/23/22 10/23/22 Range/Units 06:05 06:05 12:16 RBC 3.88 L (4.10-5.20) X 10*6/uL Hgb 11.7 L (12.0-15.0) d/dL Hct 37.1 L (37.2-46.3) % MCHC 31.5 L (32.0-37.0) d/dL Eosinophils # 1.03 H (0.04-0.35) X 10*3/uL Anion Gap 13.30 H (4.00-12.00) mmol/L BUN 47.2 H (9.0-27.0) mg/dL Est GFR (CKD-EPI) 40 L (>=60) BUN/Creatinine Ratio 36.31 H (12.00-20.00) Ratio POC Glucose (mg/dL) 175 H (70-110) mg/dL 10/23/22 10/23/22 10/24/22 Range/Units 17:05 20:37 06:15 RBC (4.10-5.20) X 10*6/uL Hgb (12.0-15.0) d/dL Hct (37.2-46.3) % MCHC (32.0-37.0) d/dL Eosinophils # (0.04-0.35) X 10*3/uL Anion Gap (4.00-12.00) mmol/L BUN (9.0-27.0) mg/dL Est GFR (CKD-EPI) (>=60) BUN/Creatinine Ratio (12.00-20.00) Ratio POC Glucose (mg/dL) 145 H 152 H 152 H (70-110) mg/dL
[2022-10-24 12:33] LABS: Glucose,Whole Blood 225 mg/dL (70-110)
--- NOTE | 2022-10-24 13:18 | P.PN ---
Subjective This is a pleasant 86 years old female with multiple medical problems including CVA/TIA, Diabetes Mellitus, GI Bleed, Hyperlipidemia, Hypertension, Rheumatoid Arthritis , Sleep Apnea/CPAP/BIPAP, hypothyroidism, osteoarthritis, Patient presents because of a breathing difficulty 4 days with little cough and no phlegm Also patient reports chest pain for 4 days about 10/10 in severity although patient was lying in bed looks, comfortable and relaxed. She says that her pain is in the left side of the chest radiating to the left neck, could not specify character for it. Patient is not on oxygen at home. She is not a smoker and alcohol no illicit drugs. Mild periumbilical pain but no vomiting diarrhea. No change in urinary habits. No headache dizziness weakness or numbness. CHEST PAIN SUB STERENAL NO RADIATION +SOB LIPS CYANOSIS NOTED. [ End ] Vitals stable and patient is afebrile, she is saturating 98% on room air showing mild leukocytosis of 11.1. CBC, INR, BMP and liver enzymes are unremarkable. Glucose 210 on admission. Troponins 2 are negative. Chest x-ray: Cardiomegaly with small left pleural effusion. No vascular congestion. COPD changes (when I reviewed the chest x-ray by myself I think there is suspicion of some vascular congestion compared to old chest x-ray) EKG normal sinus rhythm at 94 with first-degree AV block and evidence of LVH and bundle branch block Patient started on her home medication and admitted with cartilage consult. 10/23/2022 Patient presents with acute systolic CHF, ejection fraction 15-20% Currently on IV Lasix 20 mg twice daily which will be continued despite systolic blood pressure in 90s to 100 as benefits more than risk. Aspirin is also provided by clearing tub worker She has evidence of urinary retention status post trach cath, creatinine is slightly up today 1.3. She was more lethargic and sleepy through the morning after she got 1 dose of morphine for her generalized body ache. We will discontinue morphine but small dose Ultram (patient is ALLERGIC to Tylenol, NSAIDs are contraindicated due to poor kidney function and heart disease). Today daughter and son-in-law are bedside and all questions are answered. I talked to the daughter patient will need follow-up outpatient will be discharged with Dr. Richardson in one week and this B Dr. Moreau in one week and she agrees. Also patient will be evaluated for home care versus [facility] 10/24/2022 Patient's breathing is stable with no significant leg edema. Creatinine yesterday 1.3, today's pending. Today is more awake and alert, her IV Lasix was switched for home dose of oral Bumex and clearing tub worker cleared The patient for discharge Today patient also had some vomiting with no abdominal pain or worsening co nfusion, mainly towards the total amount of bile vomitus. Patient also has 4 appetite today and she could not eat her breakfast well this morning She is not taking any pain medication today We will keep monitoring today. Patient may be considered for discharge in 24-48 hours if she keeps improve Objective - Vital Signs Vital signs: Vital Signs Temp 98.2 F 10/24/22 07:35 Pulse 70 10/24/22 07:35 Resp 16 10/24/22 07:35 BP 127/70 10/24/22 07:35 Pulse Ox 97 10/24/22 08:53 FiO2 Intake & Output 10/23/22 10/24/22 10/24/22 18:59 06:59 18:59 Intake Total 298 118 Output Total 1618 100 301 Balance -1320 -100 -183 Weight 48.081 kg Intake: Oral 298 118 Output: Urine 800 100 Straight 550 Post Void Residual 818 301 Other: Voiding Method External Catheter External Catheter External Catheter - Exam -GENERAL: The patient is alert and oriented x3, sleepy, not in any acute distress. Well developed, well nourished. HEENT: Pupils are round and equally reacting to light. EOMI. No scleral icterus. No conjunctival pallor. Normocephalic, atraumatic. No pharyngeal erythema. No thyromegaly. CARDIOVASCULAR: S1 and S2 present. No murmurs, rubs, or gallops. -PULMONARY: Chest is clear to auscultation, no wheezing , no crackles. Mild tachypnea ABDOMEN: Soft, nontender, nondistended, normoactive bowel sounds. No palpable organomegaly. MUSCULOSKELETAL: No joint swelling or deformity. EXTREMITIES: No cyanosis, clubbing, or pedal edema. NEUROLOGICAL: Gross neurological examination did not reveal any focal deficits. SKIN: No rashes. no petechiae. - Labs CBC & Chem 7: 10/23/22 06:05 10/23/22 06:05 Labs: Abnormal Lab Results - Last 24 Hours (Table) 10/23/22 10/23/22 10/24/22 Range/Units 17:05 20:37 06:15 POC Glucose (mg/dL) 145 H 152 H 152 H (70-110) mg/dL 10/24/22 Range/Units 12:32 POC Glucose (mg/dL) 225 H (70-110) mg/dL Assessment and Plan Assessment: Chest pain and dyspnea present on admission suspected secondary to acute systolic CHF, ejection fraction 15-20% Acute urinary retention status post straight cath Generalized body ache Diabetes mellitus Hypertension Hyperlipidemia History of osteoarthritis Hypothyroidism Plan: Continue monitoring with telemetry Cardiology consult signed off the case discontinue with IV Lasix and start oral Bumex monitor creatinine Continue with history/Santillan Add Flomax Change of the morphine and Toradol Ultram and small dose Labs and medication were reviewed.. Continue same treatment. Continue with symptomatic treatment. Resume home medication. Monitor lytes and vitals. DVT and GI prophylaxis. Further recommendations depends on the clinical course of the patient DVT prophylaxis: Subcutaneous heparin GI Prophylaxis: Pepcid PT/OT: A benefit from [facility] Prognosis is guarded
[2022-10-24 13:21] LABS: BUN/Creat Ratio 40.54 Ratio (12.00-20.00); Blood Urea Nitrogen 52.7 mg/dL (9.0-27.0); Carbon Dioxide 21.5 mmol/L (21.6-31.8); Chloride 106 mmol/L (96-109); Glucose 139 mg/dL (70-110); Potassium 3.7 mmol/L (3.5-5.5); Sodium 143 mmol/L (135-145)
[2022-10-24] MEDS: TAMSULOSIN 0.4 MG CAP.ER.24H PO SCH (15:12)
[2022-10-24] MEDS: traMADol 50 MG TAB PO PRN (15:17)
[2022-10-24 17:35] LABS: Glucose,Whole Blood 241 mg/dL (70-110)
[2022-10-24 20:29] LABS: Glucose,Whole Blood 308 mg/dL (70-110)
[2022-10-24] MEDS: PRAVASTATIN SODIUM 80 MG TAB PO SCH (20:37)
[2022-10-24] MEDS: INSULIN DETEMIR (LEVEMIR) 100 UNIT/ML SYR SQ SCH (20:37)
[2022-10-25] MEDS: LEVOTHYROXINE 75 MCG TAB PO SCH (05:36)
[2022-10-25 06:12] LABS: Glucose,Whole Blood 379 mg/dL (70-110)
[2022-10-25] MEDS ORDERED: DEXTROSE 50% SYRINGE 50 ML IVP PRN ×2 (06:23)
[2022-10-25] MEDS: INSULIN ASPART (NovoLOG) 100 UNIT/ML VIAL SQ SCH ×4 (06:42→21:22)
[2022-10-25] MEDS: ASPIRIN 81 MG PO SCH (10:22)
[2022-10-25] MEDS: TAMSULOSIN 0.4 MG CAP.ER.24H PO SCH (10:22)
[2022-10-25] MEDS: ISOSORBIDE MONONITRATE ER 60 MG TAB.ER.24H PO SCH (10:22)
[2022-10-25] MEDS: EZETIMIBE 10 MG TAB PO SCH (10:23)
[2022-10-25] MEDS: METOPROLOL SUCCINATE (ER) 50 MG TAB.ER.24H PO SCH (10:23)
[2022-10-25] MEDS: HEPARIN SODIUM,PORCINE 5,000 UNIT/ML 1 ML VIAL SQ SCH ×2 (10:23→21:22)
[2022-10-25] MEDS: FAMOTIDINE 20 MG TAB PO SCH (10:23)
[2022-10-25 11:30] LABS: BUN/Creat Ratio 38.13 Ratio (12.00-20.00); Blood Urea Nitrogen 57.2 mg/dL (9.0-27.0); Calcium 8.6 mg/dL (8.7-10.3); Carbon Dioxide 23.7 mmol/L (21.6-31.8); Chloride 104 mmol/L (96-109); Glucose 230 mg/dL (70-110); Potassium 3.9 mmol/L (3.5-5.5); Sodium 140 mmol/L (135-145)
[2022-10-25 12:35] LABS: Glucose,Whole Blood 219 mg/dL (70-110)
--- NOTE | 2022-10-25 14:03 | P.PN ---
Subjective Progress Note Date: 10/25/22 86 years old female with multiple medical problems including CVA/TIA, Diabetes Mellitus, GI Bleed, Hyperlipidemia, Hypertension, Rheumatoid Arthritis , Sleep Apnea/CPAP/BIPAP, hypothyroidism, osteoarthritis, Patient presents because of a breathing difficulty 4 days with little cough and no phlegm Also patient reports chest pain for 4 days about 10/10 in severity although patient was lying in bed looks, comfortable and relaxed. She says that her pain is in the left side of the chest radiating to the left neck, could not specify character for it. Patient is not on oxygen at home. She is not a smoker and alcohol no illicit drugs. Mild periumbilical pain but no vomiting diarrhea. No change in urinary habits. No headache dizziness weakness or numbness. CHEST PAIN SUB STERENAL NO RADIATION +SOB LIPS CYANOSIS NOTED. [ End ] Vitals stable and patient is afebrile, she is saturating 98% on room air showing mild leukocytosis of 11.1. CBC, INR, BMP and liver enzymes are unremarkable. Glucose 210 on admission. Troponins 2 are negative. Chest x-ray: Cardiomegaly with small left pleural effusion. No vascular congestion. COPD changes (when I reviewed the chest x-ray by myself I think there is suspicion of some vascular congestion compared to old chest x-ray) EKG normal sinus rhythm at 94 with first-degree AV block and evidence of LVH and bundle branch block Patient started on her home medication and admitted with cartilage consult. 10/23/2022 Patient presents with acute systolic CHF, ejection fraction 15-20% Currently on IV Lasix 20 mg twice daily which will be continued despite systolic blood pressure in 90s to 100 as benefits more than risk. Aspirin is also provided by tight rope walker She has evidence of urinary retention status post trach cath, creatinine is slightly up today 1.3. She was more lethargic and sleepy through the morning after she got 1 dose of morphine for her generalized body ache. We will discontinue morphine but small dose Ultram (patient is ALLERGIC to Tylenol, NSAIDs are contraindicated due to poor kidney function and heart disease). Today daughter and son-in-law are bedside and all questions are answered. I talked to the daughter patient will need follow-up outpatient will be discharged with Dr. Richardson in one week and this B Dr. Moreau in one week and she agrees. Also patient will be evaluated for home care versus [facility] 10/24/2022 Patient's breathing is stable with no significant leg edema. Creatinine yesterday 1.3, today's pending. Today is more awake and alert, her IV Lasix was switched for home dose of oral Bumex and tight rope walker cleared The patient for discharge Today patient also had some vomiting with no abdominal pain or worsening confusion, mainly towards the total amount of bile vomitus. Patient also has 4 appetite today and she could not eat her breakfast well this morning She is not taking any pain medication today We will keep monitoring today. Patient may be considered for discharge in 24-48 hours if she keeps improve 10/25/2022 Patient seen and evaluated bedside, patient states she's felt better, plan to discharge to rehab. Continue patient on oral diuretics Objective - Vital Signs Vital signs: Vital Signs Temp 97.9 F 10/25/22 07:54 Pulse 72 10/25/22 07:54 Resp 16 10/25/22 08:00 BP 96/41 10/25/22 07:54 Pulse Ox 100 10/25/22 07:54 FiO2 Intake & Output 10/24/22 10/25/22 10/25/22 18:59 06:59 18:59 Intake Total 118 118 Output Total 721 300 Balance -603 -300 118 Weight 48.081 kg Intake: Oral 118 118 Output: Urine 420 300 Post Void Residual 301 Other: Voiding Method External Catheter Indwelling Catheter - Exam PHYSICAL EXAMINATION: GENERAL: The patient is alert and oriented x3, not in any acute distress. Well developed, well nourished. Nasal cannula in place HEENT: Pupils are round and equally reacting to light. EOMI. No scleral icterus. No conjunctival pallor. Normocephalic, atraumatic. No pharyngeal erythema. No thyromegaly. CARDIOVASCULAR: S1 and S2 present. No murmurs, rubs, or gallops. Lower extremity edema PULMONARY: Chest is clear to auscultation, no wheezing or crackles. ABDOMEN: Soft, nontender, nondistended, normoactive bowel sounds. No palpable organomegaly. MUSCULOSKELETAL: No joint swelling or deformity. EXTREMITIES: No cyanosis, clubbing, or pedal edema. NEUROLOGICAL: Gross neurological examination did not reveal any focal deficits. SKIN: No rashes. - Labs CBC & Chem 7: 10/23/22 06:05 08/19/23 05:49 Labs: Abnormal Lab Results - Last 24 Hours (Table) 10/24/22 10/24/22 10/25/22 Range/Units 17:34 20:25 05:49 Anion Gap 12.30 H (4.00-12.00) mmol/L BUN 57.2 H (9.0-27.0) mg/dL Est GFR (CKD-EPI) 34 L (>=60) BUN/Creatinine Ratio 38.13 H (12.00-20.00) Ratio Glucose 230 H (70-110) mg/dL POC Glucose (mg/dL) 241 H 308 H (70-110) mg/dL Calcium 8.6 L (8.7-10.3) mg/dL 10/25/22 10/25/22 Range/Units 06:10 12:34 Anion Gap (4.00-12.00) mmol/L BUN (9.0-27.0) mg/dL Est GFR (CKD-EPI) (>=60) BUN/Creatinine Ratio (12.00-20.00) Ratio Glucose (70-110) mg/dL POC Glucose (mg/dL) 379 H 219 H (70-110) mg/dL Calcium (8.7-10.3) mg/dL Assessment and Plan Assessment: Assessment: * acute systolic CHF, ejection fraction 15-20% * Acute urinary retention status post straight cath * Generalized body ache * Diabetes mellitus * Hypertension * Hyperlipidemia * History of osteoarthritis * Hypothyroidism Plan: Continue monitoring with telemetry Cardiology consult signed off, continue aspirin, Bumex, Imdur, metoprolol, pr avastatin Discontinue with IV Lasix and start oral Bumex Continue with history/Santillan Labs and medication were reviewed. DVT prophylaxis: Subcutaneous heparin GI Prophylaxis: Pepcid
[2022-10-25] MEDS: traMADol 50 MG TAB PO PRN (14:06)
[2022-10-25 17:17] LABS: Glucose,Whole Blood 281 mg/dL (70-110)
[2022-10-25 21:18] LABS: Glucose,Whole Blood 212 mg/dL (70-110)
[2022-10-25] MEDS: INSULIN DETEMIR (LEVEMIR) 100 UNIT/ML SYR SQ SCH (21:22)
[2022-10-25] MEDS: PRAVASTATIN SODIUM 80 MG TAB PO SCH (21:22)
[2022-10-26 06:11] LABS: Glucose,Whole Blood 275 mg/dL (70-110)
[2022-10-26] MEDS: INSULIN ASPART (NovoLOG) 100 UNIT/ML VIAL SQ SCH ×4 (06:16→21:02)
[2022-10-26] MEDS: LEVOTHYROXINE 75 MCG TAB PO SCH (06:16)
[2022-10-26] MEDS: FAMOTIDINE 20 MG TAB PO SCH (07:50)
[2022-10-26] MEDS: TAMSULOSIN 0.4 MG CAP.ER.24H PO SCH (07:50)
[2022-10-26] MEDS: EZETIMIBE 10 MG TAB PO SCH (07:50)
[2022-10-26] MEDS: METOPROLOL SUCCINATE (ER) 50 MG TAB.ER.24H PO SCH (07:50)
[2022-10-26] MEDS: ASPIRIN 81 MG PO SCH (07:51)
[2022-10-26] MEDS: ISOSORBIDE MONONITRATE ER 60 MG TAB.ER.24H PO SCH (07:51)
[2022-10-26] MEDS: HEPARIN SODIUM,PORCINE 5,000 UNIT/ML 1 ML VIAL SQ SCH ×2 (07:51→21:02)
[2022-10-26 07:53] VITALS: RESP 16
[2022-10-26 08:42] LABS: HGB 11.6 gm/dL (11.4-16.0); MCHC 32.1 g/dL (31.0-37.0); MCV 96.4 fL (80.0-100.0); Mean Platelet Volume 9.6; Platelet Count 169 k/uL (150-450); RBC 3.74 m/uL (3.80-5.40); RDW 13.5 % (11.5-15.5); WBC 10.1 k/uL (3.8-10.6)
[2022-10-26 10:31] LABS: African American GFR (CKD) 45 (>60 ml/min/1.73 sqM); Anion Gap 9 mmol/L; Blood Urea Nitrogen 67 mg/dL (7-17); Calcium 8.7 mg/dL (8.4-10.2); Carbon Dioxide 26 mmol/L (22-30); Chloride 103 mmol/L (98-107); Glucose 197 mg/dL (74-99); Non-African American GFR(CKD) 39 (>60 ml/min/1.73 sqM); Potassium 3.9 mmol/L (3.5-5.1); Sodium 138 mmol/L (137-145)
[2022-10-26 11:29] LABS: Glucose,Whole Blood 229 mg/dL (70-110)
--- NOTE | 2022-10-26 11:53 | P.PN ---
Subjective Progress Note Date: 10/26/22 86 years old female with multiple medical problems including CVA/TIA, Diabetes Mellitus, GI Bleed, Hyperlipidemia, Hypertension, Rheumatoid Arthritis , Sleep Apnea/CPAP/BIPAP, hypothyroidism, osteoarthritis, Patient presents because of a breathing difficulty 4 days with little cough and no phlegm Also patient reports chest pain for 4 days about 10/10 in severity although patient was lying in bed looks, comfortable and relaxed. She says that her pain is in the left side of the chest radiating to the left neck, could not specify character for it. Patient is not on oxygen at home. She is not a smoker and alcohol no illicit drugs. Mild periumbilical pain but no vomiting diarrhea. No change in urinary habits. No headache dizziness weakness or numbness. CHEST PAIN SUB STERENAL NO RADIATION +SOB LIPS CYANOSIS NOTED. [ End ] Vitals stable and patient is afebrile, she is saturating 98% on room air showing mild leukocytosis of 11.1. CBC, INR, BMP and liver enzymes are unremarkable. Glucose 210 on admission. Troponins 2 are negative. Chest x-ray: Cardiomegaly with small left pleural effusion. No vascular congestion. COPD changes (when I reviewed the chest x-ray by myself I think there is suspicion of some vascular congestion compared to old chest x-ray) EKG normal sinus rhythm at 94 with first-degree AV block and evidence of LVH and bundle branch block Patient started on her home medication and admitted with cartilage consult. 10/23/2022 Patient presents with acute systolic CHF, ejection fraction 15-20% Currently on IV Lasix 20 mg twice daily which will be continued despite systolic blood pressure in 90s to 100 as benefits more than risk. Aspirin is also provided by dupligraph operator She has evidence of urinary retention status post trach cath, creatinine is slightly up today 1.3. She was more lethargic and sleepy through the morning after she got 1 dose of morphine for her generalized body ache. We will discontinue morphine but small dose Ultram (patient is ALLERGIC to Tylenol, NSAIDs are contraindicated due to poor kidney function and heart disease). Today daughter and son-in-law are bedside and all questions are answered. I talked to the daughter patient will need follow-up outpatient will be discharged with Dr. Richardson in one week and this B Dr. Moreau in one week and she agrees. Also patient will be evaluated for home care versus [facility] 10/24/2022 Patient's breathing is stable with no significant leg edema. Creatinine yesterday 1.3, today's pending. Today is more awake and alert, her IV Lasix was switched for home dose of oral Bumex and dupligraph operator cleared The patient for discharge Today patient also had some vomiting with no abdominal pain or worsening confusion, mainly towards the total amount of bile vomitus. Patient also has 4 appetite today and she could not eat her breakfast well this morning She is not taking any pain medication today We will keep monitoring today. Patient may be considered for discharge in 24-48 hours if she keeps improve 10/25/2022 Patient seen and evaluated bedside, patient states she's felt bett er, plan to discharge to rehab. Continue patient on oral diuretic 10/26/2022 : Patient seen and evaluated bedside, patient says breathing is stable, expected discharge to rehab within the next 24 hours. Plan to wean off oxygen. Blood work reviewed creatinine improving, CBC stable Objective - Vital Signs Vital signs: Vital Signs Temp 97.8 F 10/26/22 07:52 Pulse 84 10/26/22 07:52 Resp 16 10/26/22 07:52 BP 122/53 10/26/22 07:52 Pulse Ox 99 10/26/22 09:04 FiO2 Intake & Output 10/25/22 10/26/22 10/26/22 18:59 06:59 18:59 Intake Total 236 Output Total 250 200 Balance -14 -200 Intake: Oral 236 Output: Urine 250 200 Other: Voiding Method Indwelling Catheter Indwelling Catheter - Exam PHYSICAL EXAMINATION: GENERAL: The patient is alert and oriented x3, not in any acute distress. Well developed, well nourished. Nasal cannula in place HEENT: Pupils are round and equally reacting to light. EOMI. No scleral icterus. No conjunctival pallor. Normocephalic, atraumatic. No pharyngeal erythema. No thyromegaly. CARDIOVASCULAR: S1 and S2 present. No murmurs, rubs, or gallops. Lower extremity edema PULMONARY: Chest is clear to auscultation, no wheezing or crackles. ABDOMEN: Soft, nontender, nondistended, normoactive bowel sounds. No palpable organomegaly. MUSCULOSKELETAL: No joint swelling or deformity. EXTREMITIES: No cyanosis, clubbing, or pedal edema. NEUROLOGICAL: Gross neurological examination did not reveal any focal deficits. SKIN: No rashes. - Labs CBC & Chem 7: 10/26/22 07:33 10/26/22 07:33 Labs: Abnormal Lab Results - Last 24 Hours (Table) 10/25/22 10/25/22 10/25/22 Range/Units 12:34 17:15 21:16 RBC (3.80-5.40) m/uL BUN (7-17) mg/dL Creatinine (0.52-1.04) mg/dL Glucose (74-99) mg/dL POC Glucose (mg/dL) 219 H 281 H 212 H (70-110) mg/dL 10/26/22 10/26/22 10/26/22 Range/Units 06:10 07:33 07:33 RBC 3.74 L (3.80-5.40) m/uL BUN 67 H (7-17) mg/dL Creatinine 1.25 H (0.52-1.04) mg/dL Glucose 197 H (74-99) mg/dL POC Glucose (mg/dL) 275 H (70-110) mg/dL 10/26/22 Range/Units 11:27 RBC (3.80-5.40) m/uL BUN (7-17) mg/dL Creatinine (0.52-1.04) mg/dL Glucose (74-99) mg/dL POC Glucose (mg/dL) 229 H (70-110) mg/dL Assessment and Plan Assessment: Assessment: * acute systolic CHF, ejection fraction 15-20% * Acute urinary retention status post straight cath * Generalized body ache * Diabetes mellitus * Hypertension * Hyperlipidemia * History of osteoarthritis * Hypothyroidism Plan: Continue monitoring with telemetry Cardiology consult signed off, continue aspirin, Bumex, Imdur, metoprolol, pravastatin Discontinued with IV Lasix and start oral Bumex Continue Flomax for history of urinary retention In regards to diabetes mellitus continue patient on Levemir, monitor for hypoglycemia Labs and medication were reviewed. DVT prophylaxis: Subcutaneous heparin GI Prophylaxis: Pepcid
[2022-10-26] MEDS: traMADol 50 MG TAB PO PRN (14:06)
[2022-10-26 17:08] LABS: Glucose,Whole Blood 203 mg/dL (70-110)
[2022-10-26 20:17] LABS: Glucose,Whole Blood 174 mg/dL (70-110)
[2022-10-26] MEDS: INSULIN DETEMIR (LEVEMIR) 100 UNIT/ML SYR SQ SCH (21:02)
[2022-10-26] MEDS: PRAVASTATIN SODIUM 80 MG TAB PO SCH (21:02)
[2022-10-27] MEDS: LEVOTHYROXINE 75 MCG TAB PO SCH (05:31)
[2022-10-27 06:03] LABS: Glucose,Whole Blood 92 mg/dL (70-110)
[2022-10-27] MEDS: INSULIN ASPART (NovoLOG) 100 UNIT/ML VIAL SQ SCH (06:17)
[2022-10-27] MEDS: HEPARIN SODIUM,PORCINE 5,000 UNIT/ML 1 ML VIAL SQ SCH (07:35)
[2022-10-27] MEDS: BUMETANIDE 1 MG TAB PO SCH (07:35)
[2022-10-27] MEDS: ASPIRIN 81 MG PO SCH (07:35)
[2022-10-27] MEDS: ISOSORBIDE MONONITRATE ER 60 MG TAB.ER.24H PO SCH (07:35)
[2022-10-27] MEDS: FAMOTIDINE 20 MG TAB PO SCH (07:35)
[2022-10-27] MEDS: TAMSULOSIN 0.4 MG CAP.ER.24H PO SCH (07:35)
[2022-10-27] MEDS: METOPROLOL SUCCINATE (ER) 50 MG TAB.ER.24H PO SCH (07:35)
[2022-10-27] MEDS: EZETIMIBE 10 MG TAB PO SCH (07:35)
[2022-10-27 08:29] VITALS: BP 135/71; PULSE 81; TEMP 97.8
[2022-10-27 10:52] LABS: HCT 36.2 % (37.2-46.3); HGB 11.5 d/dL (12.0-15.0); MCH 30.3 pg (27.0-32.0); MCHC 31.8 d/dL (32.0-37.0); MCV 95.5 FL (80.0-97.0); Mean Platelet Volume 12.1 FL (9.5-12.2); NRBC Per 100 WBC 0 X 10*3/uL (0.00-0.01); Platelet Count 179 X 10*3/uL (140-440); RBC 3.79 X 10*6/uL (4.10-5.20); RDW 13.3 % (11.5-14.5); WBC 9.38 X 10*3/uL (4.50-10.00)
--- NOTE | 2022-10-27 11:02 | P.DS ---
Providers Date of admission: 10/23/22 07:14 Expected date of discharge: 10/27/22 Attending physician: Mariano Rosa Primary care physician: [facility] Course: 86 years old female with multiple medical problems including CVA/TIA, Diabetes Mellitus, GI Bleed, Hyperlipidemia, Hypertension, Rheumatoid Arthritis , Sleep Apnea/CPAP/BIPAP, hypothyroidism, osteoarthritis, Patient presents because of a breathing difficulty 4 days with little cough and no phlegm Also patient reports chest pain for 4 days about 10/10 in severity although patient was lying in bed looks, comfortable and relaxed. She says that her pain is in the left side of the chest radiating to the left neck, could not specify character for it. Patient is not on oxygen at home. She is not a smoker and alcohol no illicit drugs. Mild periumbilical pain but no vomiting diarrhea. No change in urinary habits. No headache dizziness weakness or numbness. CHEST PAIN SUB STERENAL NO RADIATION +SOB LIPS CYANOSIS NOTED. [ End ] Vitals stable and patient is afebrile, she is saturating 98% on room air showing mild leukocytosis of 11.1. CBC, INR, BMP and liver enzymes are unremarkable. Glucose 210 on admission. Troponins 2 are negative. Chest x-ray: Cardiomegaly with small left pleural effusion. No vascular congestion. COPD changes (when I reviewed the chest x-ray by myself I think there is suspicion of some vascular congestion compared to old chest x-ray) EKG normal sinus rhythm at 94 with first-degree AV block and evidence of LVH and bundle branch block Patient started on her home medication and admitted with cartilage consult. 10/23/2022 Patient presents with acute systolic CHF, ejection fraction 15-20% Currently on IV Lasix 20 mg twice daily which will be continued despite systolic blood pressure in 90s to 100 as benefits more than risk. Aspirin is also provided by master control technician She has evidence of urinary retention status post trach cath, creatinine is slightly up today 1.3. She was more lethargic and sleepy through the morning after she got 1 dose of morphine for her generalized body ache. We will discontinue morphine but small dose Ultram (patient is ALLERGIC to Tylenol, NSAIDs are contraindicated due to poor kidney function and heart disease). Today daughter and son-in-law are bedside and all questions are answered. I talked to the daughter patient will need follow-up outpatient will be discharged with Dr. Richardson in one week and this B Dr. Moreau in one week and she agrees. Also patient will be evaluated for home care versus [facility] 10/24/2022 Patient's breathing is stable with no significant leg edema. Creatinine yesterday 1.3, today's pending. Today is more awake and alert, her IV Lasix was switched for home dose of oral Bumex and master control technician cleared The patient for discharge Today patient also had some vomiting with no abdominal pain or worsening confusion, mainly towards the total amount of bile vomitus. Patient also has 4 appetite today and she could not eat her breakfast well this morning She is not taking any pain medication today We will keep monitoring today. Patient may be considered for discharge in 24-48 hours if she keeps improve 10/25/2022 Patient seen and evaluated bedside, patient states she's felt better, plan to discharge to rehab. Continue patient on oral diuretic 10/26/2022 : Patient seen and evaluated bedside, patient says breathing is stable, expected discharge to rehab within the next 24 hours. Plan to wean off oxygen. Blood work reviewed creatinine improving, CBC stable 10/27/2022 : Patient seen and evaluated bedside, patient stable for discharge PHYSICAL EXAMINATION: GENERAL: The patient is alert and oriented x3, not in any acute distress. Well developed, well nourished. Nasal cannula in place HEENT: Pupils are round and equally reacting to light. EOMI. No scleral icterus. No conjunctival pallor. Normocephalic, atraumatic. No pharyngeal erythema. No thyromegaly. CARDIOVASCULAR: S1 and S2 present. No murmurs, rubs, or gallops. Lower extremity edema PULMONARY: Chest is clear to auscultation, no wheezing or crackles. ABDOMEN: Soft, nontender, nondistended, normoactive bowel sounds. No palpable organomegaly. MUSCULOSKELETAL: No joint swelling or deformity. EXTREMITIES: No cyanosis, clubbing, or pedal edema. NEUROLOGICAL: Gross neurological examination did not reveal any focal deficits. SKIN: No rashes. Assessment: * acute systolic CHF, ejection fraction 15-20% * Acute urinary retention status post straight cath * Generalized body ache * Diabetes mellitus * Hypertension * Hyperlipidemia * History of osteoarthritis * Hypothyroidism Plan: Cardiology consult signed off, continue aspirin, Bumex, Imdur, metoprolol, pravastatin Discontinued with IV Lasix and start oral Bumex Continue Flomax for history of urinary retention In regards to diabetes mellitus continue patient on Levemir, monitor for hypoglycemia Labs and medication were reviewed. Patient Condition at Discharge: Fair Plan - Discharge Summary New Discharge Prescriptions: New Tamsulosin [Flomax] 0.4 mg PO PC-BRKFST cap Aspirin 81 mg PO DAILY tab Nitroglycerin Sl Tabs [Nitrostat] 0.4 mg SUBLINGUAL Q5M PRN tab PRN Reason: Chest Pain Continue Insulin Glargine,Hum.rec.anlog [Lantus Solostar Pen] 16 units SQ HS Pravastatin Sodium [Pravachol] 80 mg PO HS Multivit-Min/FA/Lycopen/Lutein [Centrum Silver Tablet] 1 tab PO DAILY Ezetimibe [Zetia] 10 mg PO DAILY Isosorbide Mononitrate ER [Imdur] 60 mg PO DAILY Levothyroxine Sodium [Synthroid] 75 mcg PO AC-BRKFST Bumetanide [BUMEX] 1 mg PO MOWEFR diphenhydrAMINE [Benadryl] 25 mg PO QID PRN PRN Reason: Allergic Reaction Famotidine [Pepcid] 20 mg PO DAILY Metoprolol Succinate (ER) [Toprol XL] 50 mg PO DAILY Discharge Medication List Insulin Glargine,Hum.rec.anlog [Lantus Solostar Pen] 16 units SQ HS 08/03/15 [History] Ezetimibe [Zetia] 10 mg PO DAILY 03/13/16 [History] Multivit-Min/FA/Lycopen/Lutein [Centrum Silver Tablet] 1 tab PO DAILY 03/13/16 [History] Pravastatin Sodium [Pravachol] 80 mg PO HS 03/13/16 [History] Isosorbide Mononitrate ER [Imdur] 60 mg PO DAILY 04/19/20 [History] Levothyroxine Sodium [Synthroid] 75 mcg PO AC-BRKFST 04/19/20 [History] Bumetanide [BUMEX] 1 mg PO MOWEFR 10/21/22 [History] Famotidine [Pepcid] 20 mg PO DAILY 10/21/22 [History] Metoprolol Succinate (ER) [Toprol XL] 50 mg PO DAILY 10/21/22 [History] diphenhydrAMINE [Benadryl] 25 mg PO QID PRN 10/21/22 [History] Aspirin 81 mg PO DAILY tab 10/27/22 [Rx] Nitroglycerin Sl Tabs [Nitrostat] 0.4 mg SUBLINGUAL Q5M PRN tab 10/27/22 [Rx] Tamsulosin [Flomax] 0.4 mg PO PC-BRKFST cap 10/27/22 [Rx] Follow up Appointment(s)/Referral(s): Marty Moreau MD [Primary Care Provider] - 1-2 days Discharge Disposition: TRANSFER TO SNF/ECF
[2022-10-27 11:09] LABS: BUN/Creat Ratio 46.58 Ratio (12.00-20.00); Blood Urea Nitrogen 55.9 mg/dL (9.0-27.0); Calcium 9.5 mg/dL (8.7-10.3); Carbon Dioxide 23.9 mmol/L (21.6-31.8); Chloride 105 mmol/L (96-109); Glucose 92 mg/dL (70-110); Potassium 4.3 mmol/L (3.5-5.5); Sodium 141 mmol/L (135-145)
== END 2022-10-27 11:35 | DRG 291 ==
LOC: EC 16:09 → 3SCARD 18:22 → 6NMEDSUR 10-22 10:37 → OBSVTOIN 10-23 07:14
PROVIDERS: ADMIT Hospitalist; ATTEND Hospitalist
DX: I11.0 Hypertensive heart disease with heart failure (principal); I50.23 Acute on chronic systolic (congestive) heart failure; G47.30 Sleep apnea, unspecified; I25.5 Ischemic cardiomyopathy; I35.1 Nonrheumatic aortic (valve) insufficiency; I44.7 Left bundle-branch block, unspecified; J44.9 Chronic obstructive pulmonary disease, unspecified; E78.5 Hyperlipidemia, unspecified; E03.9 Hypothyroidism, unspecified; I25.110 Atherosclerotic heart disease of native coronary artery with unstable angina pectoris; E11.9 Type 2 diabetes mellitus without complications; M06.9 Rheumatoid arthritis, unspecified; M19.90 Unspecified osteoarthritis, unspecified site; I25.2 Old myocardial infarction; Z79.4 Long term (current) use of insulin; Z79.890 Hormone replacement therapy; Z79.899 Other long term (current) drug therapy; Z82.0 Family history of epilepsy and other diseases of the nervous system; Z82.49 Family history of ischemic heart disease and other diseases of the circulatory system; Z88.6 Allergy status to analgesic agent; Z90.710 Acquired absence of both cervix and uterus; Z88.5 Allergy status to narcotic agent; Z88.0 Allergy status to penicillin; Z88.2 Allergy status to sulfonamides; Z88.8 Allergy status to other drugs, medicaments and biological substances
CPT/HCPCS: 36415; 71046; 80048; 80053; 80061; 83036; 83735; 83880; 84145; 84484; 85025; 85027; 85610; 85730; 93005; 93306; 94760; 99285